=== PATIENT | male | born 1945 | race Caucasian/White ===

== ENCOUNTER → 2017-11-13 02:46 | Outpatient (CLI) | payer MEDICARE, MEDICAID, SELFPAY ==
[2017-11-13 11:45] LABS: Hemoglobin A1C 8.3 % (4.5-6.2)
== END ==
PROVIDERS: PCP Family Medicine; Visit Provider Family Medicine
DX: E11.40 Type 2 diabetes mellitus with diabetic neuropathy, unspecified (principal)
CPT/HCPCS: 36415; 83036

== ENCOUNTER 2017-12-20 00:39 | Outpatient (CLI) | payer MEDICARE, MEDICAID, SELFPAY ==
--- NOTE | 2017-12-20 08:45 | MERGEMPI_ITS ---
*[facility]* *[facility]* [address] [place] [address] Myocardial Perfusion Imaging - SPECT Regadenoson Date of study: 12/20/2017 *PATIENT PRESENTATION* Height: 180.3cm (71in) Blood Pressure: Weight: 111.4kg (245lb) BSA: 2.4m^2 Referring physician: Kenrick Gonzalez Ordering physician: Diana Murdock Impressions: - Normal perfusion by Tc99m Sestamibi Imaging. - Abnormal contraction consistent with cardiomyopathy. Summary: 1. Myocardial perfusion imaging: No myocardial perfusion defects noted. 2. The calculated left ventricular ejection fraction after stress: 43%. LV global systolic function is mild to moderately reduced. Diffuse left ventricular regional motion abnormalities. Indication: R06.02. History: REASON FOR VISIT: PT WITH DIABETES, HYPERTENTION, DYSLIPEDEMIA AND OBESITY IS HERE BECAUSE OF NEW ONSET OF SHORTNESS OF BREATH HE HAS BEEN EXPERIENCING FOR PAST FEW MONTHS. PT REPORTS THIS SHORTNESS OF BREATH HAS COME ON RATHER SUDDENLY HE DENIES ANY HISTORY OF SIGNIFICANT CHEST PAIN OR CHEST PRESSURE SYMPTOMS. PT HAD A POSITIVE PHARMACOLOGICAL STRESS TEST IN 02/15/17 HE HAD [place] [facility] [place]. Risk factors: FORMER SMOKER. QUIT 30 YEARS AGO. Family history of coronary artery disease. Hypertension. Diabetes mellitus. Obesity. Dyslipidemia. Cholesterol: 181mg/dl. HDL: 44mg/dl. LDL: 103mg/dl. Triglycerides: 172mg/dl. ALLERGIES: VIKY INHIBITORS. LORAZEPAM. METFORMIN. MEDICATIONS: SENNOSIDES 2 TABS PRN. PREGABALIN 100 MG TID. POLYETHYLENE GLYCOL 1000 BID PRN. OXYCOTIN 30 MG TID. OXYCODONE 15-30 MG BID PRN. OMEPRAZOLE 20 MG DAILY. NORTRIPYLINE 1 CAP Q HS. MULTIVITAMIN 1 DAILY. LOSARTAN 1 TAB Q AM. INSULIN LISPRO DIRECTED. INSULIN GLARGINE 45 UNITS SQ BID. FUROSEMIDE 2O MG DAILY. DULOXETINE 1 CAP DAILY. CHLORTHALIDONE 25 MG DAILY. ATORVASTATIN 80 MG DAILY. ASPIRIN 81 MG DAILY. AMLODIPINE 1 TAB DAILY. METOPROLOL SUCCINATE 50 MG DAILY. Imaging Technique: Protocol: Regadenoson. Acquisition: Gated SPECT; 1 day - rest/stress. The patient was imaged in the supine position. Attenuation correction used. Isotope administration: - Rest. Tc[99m]-sestamibi. Dose: 12.5mCi. Injection time: 09:00 AM. Injection to stress time: 00:45. - Stress. Tc[99m]-sestamibi. Dose: 36.5mCi. Injection time: 10:45 AM. 1-2 min before end of exercise Baseline ECG: SINUS RHYTHM. HR 62 BPM. Normal sinus rhythm. Stress protocol: +--------+--+ + + !Stage !HR!BP (mmHg) !Comments ! +--------+--+ + + !Baseline!62!110/52 (71)! ! +--------+--+ + + !1 min !69!120/52 (75)!Inject Regadenoson.! +--------+--+ + + !3 min !70!106/58 (74)! ! +--------+--+ + + !6 min !70!100/50 (67)! ! +--------+--+ + + !8 min !70!102/60 (74)! ! +--------+--+ + + * Stress results: The rate-pressure product for the peak heart rate and blood pressure was 8280mm Hg/min. Stress ECG: STRESS TEST ENDED IN 7 MINUTES AND 57 SECONDS. PATIENT TOLERATED LEXISCAN INJECTION WITHOUT SYMPTOMS. NORMAL HEART RATE AND BLOOD PRESSURE RESPONSE TO LEXISCAN INJECTION. NO ECTOPY. NO ANGINA. NO ST SEGMENT CHANGES. Myocardial perfusion: Imaging information: gated. The image quality was good. Left ventricular size is normal. No myocardial perfusion defects noted. Ventricular Function (Wall Motion): The calculated left ventricular ejection fraction after stress: 43%. LV global systolic function is mild to moderately reduced. Diffuse left ventricular regional motion abnormalities. Study data: Kenrick Gonzalez MD supervised and was readily available during the procedure. This study was interpreted by [facility]. Study status: Routine. Consent: The risks, benefits, and alternatives to the procedure were explained to the patient and informed consent was obtained. Procedure: Initial setup. A baseline ECG was recorded. Surface ECG leads and manual cuff blood pressure measurements were monitored. Heart sounds: Normal. Lung sounds: Normal. Regadenoson stress test. Stress testing was performed, with regadenoson by intravenous bolus, for a total dose of 0.4mgover 10.00sec, followed by a 5ml saline flush. The infusion was terminated due to per protocol. Study completion: All catheters inserted during the procedure were removed. The patient tolerated the procedure well and was discharged from the lab. Discharge: The patient left the laboratory in stable condition. Birthdate: Patient birthdate: 1945. Sex: Gender: male. Study date: Study date: 12/20/2017. Study time: 12:30 PM. Signature Documentation: - The imaging portion of this study was interpreted by Nuclear Folder And Notcher Kenrick Gonzalez MD. - The imaging portion of this study was interpreted by Nuclear Radiologist Tristian Meyer MD. - The Stress ECG portion of this study was interpreted by Kenrick Gonzalez MD. Electronically signed by Kenrick Gonzalez 12/20/2017 13:26
[2017-12-20] MEDS: Regadenoson 0.4 MG/5 ML SYR IVP (09:04)
== END 2017-12-20 00:59 ==
PROVIDERS: PCP Family Medicine; Visit Provider Family Medicine
DX: R06.02 Shortness of breath (principal); I42.9 Cardiomyopathy, unspecified; E11.9 Type 2 diabetes mellitus without complications; Z79.4 Long term (current) use of insulin; I10 Essential (primary) hypertension; E78.5 Hyperlipidemia, unspecified; Z82.49 Family history of ischemic heart disease and other diseases of the circulatory system
CPT/HCPCS: 78452; 93016; 93018; 93017; J2785

== ENCOUNTER 2017-12-26 00:40 | Outpatient (CLI) | payer MEDICARE, MEDICAID, SELFPAY ==
--- NOTE | 2017-12-26 10:35 | MERGE_ITS ---
*[facility]* *[facility]* [address] [place] [address] Date of study: 12/26/2017 Transthoracic Echocardiography M-mode, complete 2D, complete spectral Doppler, and color Doppler *STUDY CONCLUSIONS* Summary: 1. Left ventricle: The cavity size was moderately dilated. Wall thickness was normal. Systolic function was normal. The estimated ejection fraction was 45-50%. Wall motion was normal; there were no regional wall motion abnormalities. 2. Right ventricle: The cavity size was dilated. Wall thickness was normal. Systolic function was normal. *PATIENT PRESENTATION* Height: 180.3cm ((71in) ) S/D Pressure: 130 / 68 Weight: 111.1kg ((244.5lb) ) BSA: 2.4m^2 Test start time: 10:45 AM. Test stop time: 11:45 AM. ORDERING Diana Murdock REFERRING Diana Murdock PERFORMING Unknown PERFORMING [facility] TOOTH CUTTER RT Brenda (Stanislav)(CONSUELO), HERIBERTO *PROCEDURE DATA* Procedure information: The patient was identified by two identifiers. This study was interpreted by [facility]. Pertinent images and digital data are archived for permanent storage and are available for subsequent review. Comparison was made to the study of 02/21/2017. Study status: Routine. Transthoracic echocardiography. M-mode, complete 2D, complete spectral Doppler, and color Doppler. A Transthoracic Echocardiogram was performed. Scanning was performed from the parasternal, apical, subcostal, and suprasternal notch acoustic windows. Images were obtained using an [id number] cardiac ultrasound machine. Image quality was adequate. Study completion: The patient tolerated the procedure well. There were no complications. History: PMH: SOB h/o heart disease, HTN, SANTORO, DM with neuropathy. *CARDIAC ANATOMY* Left ventricle: The cavity size was moderately dilated. Wall thickness was normal. Systolic function was normal. The estimated ejection fraction was 45-50%. Wall motion was normal; there were no regional wall motion abnormalities. Aortic valve: Trileaflet; normal thickness leaflets. Mobility was not restricted. Doppler: Transvalvular velocity was within the normal range. There was no stenosis. There was no significant regurgitation. VTI ratio of LVOT to aortic valve: 0.68. Valve area (VTI): 2.4cm^2. Indexed valve area (VTI): 1cm^2/m^2. Peak velocity ratio of LVOT to aortic valve: 0.61. Valve area (Vmax): 2.1cm^2. Indexed valve area (Vmax): 0.9cm^2/m^2. Mean velocity ratio of LVOT to aortic valve: 0.59. Valve area (Vmean): 2.1cm^2. Indexed valve area (Vmean): 0.9cm^2/m^2. Mean gradient (S): 4.8mm Hg. Peak gradient (S): 8mm Hg. Aorta: Aortic root: The aortic root was normal in size. Mitral valve: Structurally normal valve. Mobility was not restricted. Doppler: Transvalvular velocity was within the normal range. There was no evidence for stenosis. There was trivial regurgitation. Valve area by pressure half-time: 4.2cm^2. Indexed valve area by pressure half-time: 1.7cm^2/m^2. Left atrium: The atrium was normal in size. Right ventricle: The cavity size was dilated. Wall thickness was normal. Systolic function was normal. Pulmonic valve: Structurally normal valve. Doppler: Transvalvular velocity was within the normal range. There was no evidence for stenosis. There was mild regurgitation. Peak gradient (S): 2.5mm Hg. Tricuspid valve: Structurally normal valve. Doppler: Transvalvular velocity was within the normal range. There was no evidence for stenosis. There was mild regurgitation. Pulmonary artery: Pulmonary systolic pressure was within the normal range, in the range of 35mm Hg to 40mm Hg. Right atrium: The atrium was normal in size. Pericardium: There was no pericardial effusion. Systemic veins: Inferior vena cava: Well visualized. The vessel was normal in size. The respirophasic diameter changes were in the normal range (greater than or equal to 50%). Baseline ECG: Normal sinus rhythm. Measurements Left ventricle Value 02/21/2017 Reference LV ID, ED, PLAX (H) 6.9 cm 6.3 3.5 - 6.0 LV ID, ES, PLAX (H) 5.3 cm 4.4 2.1 - 4.0 LV PW thickness, ED, PLAX 1.0 cm LV end-diastolic volume, 113 ml 98 1-p A2C LV ejection fraction, 1-p 54 % 47 A2C LV end-diastolic volume, 125 ml 104 1-p A4C LV ejection fraction, 1-p 46 % 48 A4C LV e', lateral 0.094 m/sec LV E/e', lateral 7 LV e', medial 0.073 m/sec LV E/e', medial 9 LV e', average 0.083 m/sec LV E/e', average 8 Ventricular septum Value 02/21/2017 Reference IVS thickness, ED, PLAX 0.8 cm 1.1 LVOT Value 02/21/2017 Reference LVOT ID, A-P 2.1 cm 2.1 LVOT area 3.5 cm^2 3.3 LVOT peak velocity, S 0.87 m/sec 0.89 LVOT mean velocity, S 0.63 m/sec LVOT VTI, S 22.6 cm 19.6 LVOT peak gradient, S 3 mm Hg LVOT mean gradient, S 1.8 mm Hg 1.5 Stroke volume (SV), LVOT 78 ml DP Stroke index (SV/bsa), 33 ml/m^2 LVOT DP Aortic valve Value 02/21/2017 Reference Aortic valve peak 1.4 m/sec 1.1 velocity, S Aortic valve mean 1.06 m/sec 0.01 velocity, S Aortic valve VTI, S 33.1 cm Aortic mean gradient, S 4.8 mm Hg 2.5 Aortic peak gradient, S 8 mm Hg 4 VTI ratio, LVOT/AV 0.68 0.84 Aortic valve area, VTI 2.4 cm^2 2.8 Velocity ratio, peak, 0.61 0.81 LVOT/AV Aortic valve area, peak 2.1 cm^2 2.7 velocity Velocity ratio, mean, 0.59 LVOT/AV Aortic valve area, mean 2.1 cm^2 velocity Aortic valve area/bsa, 0.9 cm^2/m^2 mean velocity Aorta Value 02/21/2017 Reference Aortic root ID, ED 3.5 cm 3.4 Ascending aorta ID, A-P, S 3.6 cm 3.2 RVOT Value 02/21/2017 Reference RVOT VTI, S 15.6 cm 15.8 Left atrium Value 02/21/2017 Reference LA ID, A-P, ES 3.8 cm LA ID/bsa, A-P 1.6 cm/m^2 <=2.2 LA area, ES, A4C 21.9 cm^2 18.5 8.8 - 23.4 LA area, ES, A2C 19 cm^2 LA volume/bsa, ES, 1-p A4C 30 ml/m^2 21 LA volume, ES, 2-p 62 ml LA volume/bsa, ES, 2-p 26 ml/m^2 LA/aortic root ratio 1.09 1.27 Mitral valve Value 02/21/2017 Reference Mitral E-wave peak 0.69 m/sec 0.62 velocity Mitral A-wave peak 0.81 m/sec 0.69 velocity Mitral deceleration time 181 ms 199 150 - 230 Mitral pressure half-time 52 ms 58 Mitral E/A ratio, peak 0.85 0.89 Mitral valve area, PHT, DP 4.2 cm^2 3.8 Tricuspid valve Value 02/21/2017 Reference Tricuspid regurg peak 3.6 m/sec 2.9 velocity Tricuspid peak RV-RA 50.6 mm Hg 34.7 gradient Right atrium Value 02/21/2017 Reference RA area, ES, A4C 19.5 cm^2 16.7 8.3 - 19.5 Pulmonic valve Value 02/21/2017 Reference Pulmonic peak gradient, S 2.5 mm Hg 6 Legend: (L) and (H) patricia values outside specified reference range. I have personally reviewed the images and have reviewed and edited the reported findings. Electronically signed by Kenrick Gonzalez 12/26/2017 13:49
== END 2017-12-26 01:00 ==
PROVIDERS: PCP Family Medicine; Visit Provider Family Medicine
DX: R06.02 Shortness of breath (principal); I20.9 Angina pectoris, unspecified; I10 Essential (primary) hypertension; I42.9 Cardiomyopathy, unspecified; R06.09 Other forms of dyspnea; E11.40 Type 2 diabetes mellitus with diabetic neuropathy, unspecified; Z79.4 Long term (current) use of insulin
CPT/HCPCS: 93306

== ENCOUNTER 2018-02-19 12:41 | Outpatient (CLI) | payer MEDICARE, MEDICAID, SELFPAY ==
[2018-02-19 13:38] LABS: HGB 13.6 g/dL (13.5-17.5); Mean Corp. HGB Concentration 32.4 g/dL (32.0-36.0); Mean Corpuscular Hemoglobin 29.2 pg (27.0-33.0); Mean Corpuscular Volume 90.3 fL (80-95); Mean Platelet Volume 11.8 fL (8.0-11.0); Platelet Count 121 x1000/uL (130-400); RBC 4.65 m/cumm (4.50-6.00); RBC Distribution Width 13.4 % (11.8-14.1); White Blood Cell Count 5.63 k/cumm (4.4-10.8)
[2018-02-19 14:03] LABS: Hemoglobin A1C 7.9 % (4.5-6.2)
[2018-02-19 16:23] LABS: ALT 20 U/L (12-78); AST 14 U/L (15-37); Alkaline Phosphatase 78 U/L (46-116); Anion Gap 9.3 mmol/L (3-11); BUN 23 mg/dL (7-18); Bilirubin, Total 0.5 mg/dL (0.2-1.0); CO2 29.7 mmol/L (21.0-32.0); CREATININE 1.18 mg/dL (0.70-1.30); Chloride 101 mmol/L (98-107); Glucose 134 mg/dL (70-100); NT-proBNP 51 pg/mL; Potassium 3.6 mmol/L (3.5-5.1); Sodium 140 mmol/L (136-145); Total Protein 7.1 g/dL (6.4-8.2)
[2018-02-19 16:41] LABS: Cholesterol 145 mg/dL (50-200); HDL Cholesterol 32 mg/dL (40-60); LDL CHOLESTEROL 83 mg/dL (<100); Triglyceride 174 mg/dL (30-150)
[2018-02-20 10:10] LABS: Hepatitis C Ab w Rflx HCV PCR Negative (NEGAT)
== END 2018-02-19 13:01 ==
PROVIDERS: PCP Family Medicine; Visit Provider Family Medicine
DX: E78.5 Hyperlipidemia, unspecified (principal); I10 Essential (primary) hypertension; E11.40 Type 2 diabetes mellitus with diabetic neuropathy, unspecified; D64.9 Anemia, unspecified; D69.6 Thrombocytopenia, unspecified; R06.02 Shortness of breath; I50.9 Heart failure, unspecified; Z11.59 Encounter for screening for other viral diseases
CPT/HCPCS: 36415; 80053; 80061; 83721; 85027; 86803; 83036; 83880

== ENCOUNTER 2018-08-06 10:21 | Outpatient (CLI) | payer MEDICARE, MEDICAID, SELFPAY ==
[2018-08-06 14:31] LABS: Hemoglobin A1C 7.5 % (4.5-6.2)
== END 2018-08-06 10:41 ==
PROVIDERS: PCP Family Medicine; Visit Provider Family Medicine
DX: E11.9 Type 2 diabetes mellitus without complications (principal)
CPT/HCPCS: 36415; 83036

== ENCOUNTER 2018-09-21 23:55 | Inpatient (IN) | payer MEDICARE, MEDICAID, SELFPAY ==
[2018-09-22] VITALS (99 sets, daily range): BP systolic 75–154; BP diastolic 37–132; PULSE 77–127; RESP 4–41; TEMP 36.3–38.8; O2SAT 89–97
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
[2018-09-22] MEDS: Albuterol/Ipratropium 3 ML UPD VIAL UPD ×2 (00:13→23:04)
[2018-09-22] MEDS: Lactated Ringers 1,000 ML 200 ML IV ×2 (00:23→05:35)
[2018-09-22 00:26] LABS: Lactate-non-spesis 0.8 mmol/l (0.6-1.4)
[2018-09-22 00:30] LABS: Abs Immature Grans 0.01 k/cumm (0.0-0.09); Absolute Eosinophil Count 0.02 k/cumm (0.0-0.7); Absolute Lymphocyte Count 0.38 k/cumm (1.2-3.4); Absolute Monocyte Count 0.43 k/cumm (0.11-0.7); Absolute Neutrophil Count 4.77 k/cumm (1.2-6.7); Eosinophils % 0.4; HCT 33.5 % (40.0-50.0); HGB 10.8 g/dL (13.5-17.5); Immature Grans % 0.2; Lymphocytes % 6.8; Mean Corp. HGB Concentration 32.2 g/dL (32.0-36.0); Mean Corpuscular Volume 90.1 fL (80-95); Mean Platelet Volume 12.2 fL (8.0-11.0); Monocytes % 7.7; Neutrophils % 84.9; Platelet Count 102 x1000/uL (130-400); RBC 3.72 m/cumm (4.50-6.00); RBC Distribution Width 13.6 % (11.8-14.1); White Blood Cell Count 5.61 k/cumm (4.4-10.8)
[2018-09-22] MEDS: Acetaminophen 500 MG TAB 1000 MG PO (00:32)
[2018-09-22 01:07] LABS: ALT 18 U/L (12-78); AST 19 U/L (15-37); Albumin 3.3 g/dL (3.4-5.0); Alkaline Phosphatase 65 U/L (46-116); Anion Gap 13.1 mmol/L (3-11); BUN 65 mg/dL (7-18); Bilirubin, Total 0.5 mg/dL (0.2-1.0); CO2 24.9 mmol/L (21.0-32.0); CREATININE 3.49 mg/dL (0.70-1.30); Calcium 7.5 mg/dL (8.5-10.1); Chloride 100 mmol/L (98-107); Estimated GFR 17.36 (mL/min/1.73m2); Glucose 57 mg/dL (70-100); Magnesium 1.6 mg/dL (1.8-2.4); Potassium 3.6 mmol/L (3.5-5.1); Sodium 138 mmol/L (136-145); Total Protein 6.3 g/dL (6.4-8.2)
[2018-09-22 01:13] LABS: Bilirubin Negative (Negative); Blood Negative (Negative); Clarity Clear; Glucose 500 mg/dL (Negative); Ketones Negative (Negative); Leukocyte Esterase Trace (Negative); Nitrite Negative (Negative); Urobilinogen 0.2 EU/dL (Up TO 0.2); pH 5.5 (5-8)
[2018-09-22 01:14] LABS: Troponin I < 0.02 ng/mL (0.00-0.06)
[2018-09-22 01:20] LABS: Bacteria Many HPF (Negative); C & S Indicated? Yes; Casts Negative LPF (Negative); Crystals Negative HPF (Negative); Epithelial Cells Rare HPF (Negative); Mucus Negative (Negative); RBC 0-2 (0-2)
[2018-09-22] MEDS: Dextrose 50%-Water 25 GM/50 ML SYR IVP (01:22)
--- NOTE | 2018-09-22 01:50 | DI.CT_ITS ---
SYMPTOM/DIAGNOSIS: ALTERED MENTAL STATUS CT HEAD: No intracranial hemorrhage, mass or acute infarct seen. There is no evidence of skull fracture. There are white matter changes consistent with small vessel disease. The ventricles are normal in size. There is a normal variant of a jose enrique cisterna magna. IMPRESSION: No acute abnormality.
--- NOTE | 2018-09-22 01:50 | DI.CT_ITS ---
SYMPTOM/DIAGNOSIS: FEVER, LOW SATS, DISTENDED ABDOMEN CT CHEST, ABDOMEN AND PELVIS: The exam was performed without IV contrast. There is no evidence of fracture, pneumothorax, mass or adenopathy. There are dependent changes at the posterior lung bases as well as respiratory motion. No pleural or pericardial effusions are seen. The heart is mildly enlarged. Coronary artery calcifications and mild aortic calcifications are seen. IMPRESSION: No acute abnormality. CT ABDOMEN AND PELVIS: The exam was performed without IV or oral contrast. The exam is limited by respiratory motion. The stomach is moderately distended with fluid. The colon also shows fluid at the level of the cecum and ascending colon. Stool is seen in the remainder of the colon. There is some stranding seen around the cecum and ascending colon. The appendix appears normal. There is no free air or free fluid. No small bowel dilatation is seen. Webb catheter is noted in the urinary bladder. The liver, spleen, kidneys and adrenals are unremarkable. The pancreas is atrophic. The gallbladder is somewhat distended however there is no evidence of wall thickening. No stones are visible. No biliary dilatation. Degenerative changes are seen in the spine. Degenerative changes are also present in the hips, right greater than left. IMPRESSION: Inflammatory changes around the cecum.
[2018-09-22] MEDS: Lactated Ringers 500 ML IV (01:59)
--- NOTE | 2018-09-22 02:25 | DI.VRAD_ITS ---
EXAM: CT Head Without Contrast EXAM DATE/TIME: 09/22/2018 12:12 AM CLINICAL HISTORY: 73 years old, male; Signs and symptoms; Alteration of consciousness and altered mental status/memory loss; Other: Not specified; Confusion or disorientation TECHNIQUE: Imaging protocol: Axial computed tomography images of the head without contrast. Coronal and sagittal reformatted images were created and reviewed. Radiation optimization: All CT scans at this facility use at least one of these dose optimization techniques: automated exposure control; mA and/or kV adjustment per patient size (includes targeted exams where dose is matched to clinical indication); or iterative reconstruction. COMPARISON: No relevant prior studies available. FINDINGS: Brain: There is a jose enrique-cisterna magna, a normal variant. There is mild diffuse heterogeneity of the white matter attenuation, consistent with chronic white matter microangiopathic ischemic changes. There is mild diffuse cerebral atrophy present. There is no evidence of intracranial hemorrhage. There is no evidence of acute intracranial injury or other pathologic process. There is no evidence of an acute ischemic event. Ventricles: The ventricular system demonstrates mild diffuse compensatory enlargement. Bones/joints: The orbits are normal without evidence of fracture. The bony cranium shows no evidence of injury or other acute pathologic processes. Sinuses: Mucoperiosteal thickening consistent with chronic sinusitis. No air-fluid levels to suggest evidence of acute sinusitis. Mastoid air cells: The mastoid aircells are normal. Orbits: There is no evidence of retro-bulbar hemorrhage. There is no evidence of globe or lens injury. Soft tissues: The extracranial soft tissues are normal. IMPRESSION: No evidence of an acute intracranial abnormality. Dictated and Authenticated by: Tk Roberson MD. Ordering:ITZEL Lubin MD
--- NOTE | 2018-09-22 02:59 | DI.VRAD_ITS ---
EXAM: CT Chest Without Contrast EXAM DATE/TIME: 09/22/2018 1:17 AM CLINICAL HISTORY: 73 years old, male; Signs and symptoms; Bloating and fever and other: Low sats; Other: Not specified; Additional info: Non-contrast study due to insufficient labs TECHNIQUE: Imaging protocol: Axial computed tomography images of the chest without intravenous contrast. Coronal and sagittal reformatted images were created and reviewed. Radiation optimization: All CT scans at this facility use at least one of these dose optimization techniques: automated exposure control; mA and/or kV adjustment per patient size (includes targeted exams where dose is matched to clinical indication); or iterative reconstruction. COMPARISON: No relevant prior studies available. FINDINGS: Lungs: Bilateral lower lobe atelectatic changes present early pneumonia cannot be excluded. Pleural space: Unremarkable. No pneumothorax. No pleural effusion. Heart: There is moderate to severe atherosclerotic calcification of the coronary arteries. There is mild cardiomegaly. Pulmonary arteries: The pulmonary arteries are not enlarged. Aorta: The aorta demonstrates mild atherosclerotic calcification. Lymph nodes: There is no evidence of lymphadenopathy. Bones/joints: The skeletal structures and soft tissues show no evidence of fracture or other acute processes. The thoracic spine demonstrates moderate degenerative changes at multiple levels. Soft tissues: The soft tissues of the extrathoracic region are unremarkable. Upper abdomen: Please see CT of the abdomen and pelvis. IMPRESSION: Bilateral lower lobe atelectatic changes present early pneumonia cannot be excluded. EXAM: CT Abdomen and Pelvis Without Contrast EXAM DATE/TIME: 09/22/2018 1:17 AM CLINICAL HISTORY: 73 years old, male; Signs and symptoms; Bloating and fever and other: Low sats; Other: Not specified; Additional info: Non-contrast study due to insufficient labs TECHNIQUE: Imaging protocol: Axial computed tomography images of the abdomen and pelvis without contrast. Coronal and sagittal reformatted images were created and reviewed. Radiation optimization: All CT scans at this facility use at least one of these dose optimization techniques: automated exposure control; mA and/or kV adjustment per patient size (includes targeted exams where dose is matched to clinical indication); or iterative reconstruction. COMPARISON: No relevant prior studies available. FINDINGS: ABDOMEN: Liver: There are no focal liver lesions present. Gallbladder and bile ducts: The gallbladder is hydropic measuring 10 x 5.5 cm. The gallbladder is otherwise normal. There is no cholelitiasis, wall thickening or pericholecystic fluid to suggest cholecystitis. Pancreas: There is moderate to severe diffuse pancreatic atrophy. Spleen: The spleen is normal. Adrenals: The adrenal glands are normal. Kidneys and ureters: There is bilateral perinephric stranding. This may represent a mild inflammatory process or old inflammation and scarring. The kidneys are normal. Stomach and bowel: The stomach is distended with fluid and gas. There is a small hiatal hernia. The colon is distended with gas and fluid. There may be 2 separate areas of stricture at the proximal and distal transverse colon. While these may represent benign strictures, the possibility of malignancy cannot be excluded. No evidence of small bowel obstruction. There is moderate constipation. Soft tissue stranding seen within the right hemiabdomen adjacent to the colon. Inflammatory process colitis cannot be excluded. Appendix: A normal appendix is identified. There is no evidence of distention or periappendiceal inflammation to suggest appendicitis. PELVIS: Bladder: The bladder is decompressed by a Webb catheter but is otherwise normal. There is a small amount of urinary bladder intraluminal air consistent with instrumentation. Reproductive: The prostate gland demonstrates calcification and moderate nonspecific enlargement. The seminal vesicles are normal. ABDOMEN and PELVIS: Intraperitoneal space: Normal. No free air. No significant fluid collection. Bones/joints: The lumbar spine demonstrates moderate to severe degenerative changes. Soft tissues: There are bilateral inguinal hernias containing fat and mesentery. The extra-abdominal soft tissues are normal. Vasculature: Normal. No abdominal aortic aneurysm. Lymph nodes: Normal. No enlarged lymph nodes. Other findings: Motion artifact does moderately limit the sensitivity of this examination. IMPRESSION: 1. The colon is distended with gas and fluid. There may be 2 separate areas of stricture at the proximal and distal transverse colon. While these may represent benign strictures, the possibility of malignancy cannot be excluded. No evidence of small bowel obstruction. 2. Soft tissue stranding seen within the right hemiabdomen adjacent to the colon. Inflammatory process colitis cannot be excluded. 3. There is moderate constipation. Dictated and Authenticated by: Tk Roberson MD. Ordering:ITZEL Lubin MD
[2018-09-22] MEDS: cefTRIAXone 2 GM/50 ML BAG IVPB (03:07)
--- NOTE | 2018-09-22 03:11 | NUR.NOTE ---
Nursing Note: Dr. Becker notified pt's BP 85/42, no new orders received at this time.
--- NOTE | 2018-09-22 03:25 | NUR.NOTE ---
Nursing Note: Dr. Feldman at bedside to evaluate pt.
--- NOTE | 2018-09-22 03:49 | HPE_ITS ---
Date of service: 09/22/18 Time of Service: 03:36 Assessment and Plan (1) UTI (urinary tract infection): Current visit: Yes Status: Acute UTI in setting of presumed chronic urinary retention; BP soft representing dehydration versus early sepsis. Will continue volume resuscitation and antibiotics, pending culture results. Will continue usual meds as is with exception of diuretics (hypotension) and insulin (hypoglycemia). Reviewed advance directives and patient and indicate wish for full code status. History of Present Illness Chief Complaint: confusion Narrative: 73 male here with one day of confusion and weakness; EMS summoned and reportedly noted fever. IN ER findings of note for temp 38.1, BP varying between 80s and 114/systolic; urinary retention (2liter), pyuria and YAZAN (Cr 3.5). Cultures obtained, patient given 2 l IVF and one gram Rocephin. Admitted for further management. Patient does admit that lower abdomen has been somewhat uncomfortable but unable to get much in way of detail. indicates that this has not been an ongoing issue. 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 Meds Home Medications Medication Instructions Recorded Confirmed Type aspirin [Aspirin Low-Strength] 1 tab PO DAILY tab.chew 07/13/12 09/22/18 History multivitamin 1 tab PO DAILY 07/13/12 09/22/18 History Narcotic Contract 01/23/13 08/06/18 History blood sugar diagnostic [Blood #400 strip 08/03/17 08/06/18 Rx Glucose Test Strip] pen needle, diabetic 31 gauge x #360 ndl 12/22/17 08/06/18 Rx 1/3 blood sugar diagnostic strips #400 each 01/19/18 08/06/18 Rx blood-glucose meter #1 each 01/19/18 08/06/18 Rx lancets 25 gauge #100 each 01/19/18 08/06/18 Rx atorvastatin 80 mg tablet 80 mg PO DAILY #90 tab-cap 02/22/18 09/22/18 Rx blood-glucose meter,continuous #1 each 02/22/18 08/06/18 Rx blood-glucose sensor device #3 each 02/22/18 08/06/18 Rx blood-glucose transmitter device #1 each 02/22/18 08/06/18 Rx pregabalin 100 mg capsule 100 mg PO TID #270 tab-cap 03/18/18 09/22/18 Rx losartan 100 mg tablet 100 mg PO QAM #90 tab-cap 03/23/18 09/22/18 Rx nitroglycerin 0.4 mg sublingual 0.4 mg SL ONCE #25 tab 03/23/18 08/06/18 Rx tablet polyethylene glycol 3350 17 gram 17 gm PO DAILY PRN #90 each 07/10/18 09/22/18 Rx oral powder packet amlodipine 10 mg tablet 10 mg PO QAM #90 tab 07/16/18 09/22/18 Rx chlorthalidone 25 mg tablet 25 mg PO DAILY #90 tab-cap 07/16/18 09/22/18 Rx duloxetine 60 mg capsule,delayed 60 mg PO DAILY #90 tab-cap 07/16/18 09/22/18 Rx release furosemide 20 mg tablet 20 mg PO DAILY #90 tab-cap 07/16/18 09/22/18 Rx metoprolol succinate ER 50 mg 50 mg PO DAILY #90 tab 07/16/18 09/22/18 Rx tablet,extended release 24 hr nortriptyline 50 mg capsule 50 mg PO HS #90 tab 07/16/18 09/22/18 Rx omeprazole 20 mg capsule,delayed 20 mg PO DAILY #90 tab-cap 07/16/18 09/22/18 Rx release sennosides 8.6 mg tablet 17.2 mg PO QPM PRN #180 tab 07/16/18 09/22/18 Rx empagliflozin 25 mg tablet 25 mg PO QAM #30 tab 08/06/18 09/22/18 Rx insulin glargine (U-100) 100 60 unit SUBCUT BID ml 08/06/18 09/22/18 History unit/mL (3 mL) subcutaneous pen oxycodone 15 mg tablet 15 mg PO TID PRN #70 tab MDD 3 08/06/18 09/22/18 Rx oxycodone ER 30 mg tablet,crush 30 mg PO TID #70 tab MDD 3 08/06/18 09/22/18 Rx resistant,extended release 12 hr tamsulosin 0.4 mg capsule 0.4 mg PO DAILY #30 cap 08/06/18 09/22/18 Rx insulin lispro (U- 100) 100 See Rx Instructions SUBCUT AC #150 08/24/18 09/22/18 Rx unit/mL subcutaneous pen ml Allergies Allergy/AdvReac Type Severity Reaction Status Date / Time VIKY Inhibitors AdvReac Cough Unverified 08/06/18 15:30 lorazepam AdvReac Diarrhea Unverified 08/06/18 15:30 metformin AdvReac Diarrhea Unverified 08/06/18 15:30 Exam Narrative Exam Narrative: 96/43, 81, 27,, 38.1. HEENT atraumatic; neck supple; lungs diminisshed but clear; heart RRR without murmur; abdomen soft, NT; : bilateral hydrocoele (demonstrated by transillumination); rectal deferred; neuro somewhat confused but able to have brief exchanges Results Labs : 09/22/18 00:18 09/22/18 00:18 Laboratory Results - last 24 hr 09/22/18 09/22/18 09/22/18 00:18 00:18 00:18 WBC 5.61 RBC 3.72 L Hgb 10.8 L Hct 33.5 L MCV 90.1 MCH 29.0 MCHC 32.2 RDW 13.6 Plt Count 102 L MPV 12.2 H Immature Gran % 0.2 Neutrophils % 84.9 Lymphocytes % 6.8 Monocytes % 7.7 Eosinophils % 0.4 Basophils % 0.0 Absolute Neutrophils 4.77 Absolute Lymphocytes 0.38 L Absolute Monocytes 0.43 Absolute Eosinophils 0.02 Absolute Basophils 0.00 Sodium 138 Potassium 3.6 Chloride 100 Carbon Dioxide 24.9 Anion Gap 13.1 H BUN 65 H Creatinine 3.49 H Estimated GFR/1.73 m2 17.36 Glucose 57 L Lactate 0.8 Calcium 7.5 L Magnesium 1.6 L Total Bilirubin 0.5 AST 19 ALT 18 Alkaline Phosphatase 65 Troponin I < 0.02 Total Protein 6.3 L Albumin 3.3 L Urine Color Urine Clarity Urine pH Ur Specific [place] Urine Protein Urine Ketones Urine Blood Urine Nitrite Urine Bilirubin Urine Urobilinogen Ur Leukocyte Esterase Urine RBC Urine WBC Ur Epithelial Cells Urine Crystals Urine Bacteria Urine Casts Urine Mucus Ur Culture Indicated? Urine Glucose 09/22/18 00:50 WBC RBC Hgb Hct MCV MCH MCHC RDW Plt Count MPV Immature Gran % Neutrophils % Lymphocytes % Monocytes % Eosinophils % Basophils % Absolute Neutrophils Absolute Lymphocytes Absolute Monocytes Absolute Eosinophils Absolute Basophils Sodium Potassium Chloride Carbon Dioxide Anion Gap BUN Creatinine Estimated GFR/1.73 m2 Glucose Lactate Calcium Magnesium Total Bilirubin AST ALT Alkaline Phosphatase Troponin I Total Protein Albumin Urine Color Yellow Urine Clarity Clear Urine pH 5.5 Ur Specific [place] 1.010 Urine Protein Negative Urine Ketones Negative Urine Blood Negative Urine Nitrite Negative Urine Bilirubin Negative Urine Urobilinogen 0.2 Ur Leukocyte Esterase Trace H Urine RBC 0-2 Urine WBC 5-10 Ur Epithelial Cells Rare Urine Crystals Negative Urine Bacteria Many Urine Casts Negative Urine Mucus Negative Ur Culture Indicated? Yes Urine Glucose 500 H Last Vital Signs Temp 37.3 C 09/22/18 03:11 Pulse 81 09/22/18 03:16 Resp 27 H 09/22/18 03:16 BP 96/43 L 09/22/18 03:16 Pulse Ox 93 L 09/22/18 03:11
[2018-09-22 06:38] LABS: Anion Gap 11.2 mmol/L (3-11); BUN 64 mg/dL (7-18); CO2 26.8 mmol/L (21.0-32.0); CREATININE 2.78 mg/dL (0.70-1.30); Chloride 100 mmol/L (98-107); Estimated GFR 22.57 (mL/min/1.73m2); Potassium 3.8 mmol/L (3.5-5.1); Sodium 138 mmol/L (136-145)
--- NOTE | 2018-09-22 07:49 | PDOC.CMIN ---
- If Service Date Differs Date of service: 09/22/18 Time of Service: 07:49 Care Management Initial Assess REASON FOR HOSPITALIZATION:: UTI PAST MEDICAL HISTORY/PAST SURGICAL HISTORY:: Medical History: Thrombocytopenia (Chronic 07/27/15). Rupture of left long head biceps tendon (Chronic 05/03/17). 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 Peripheral neuralgia (Chronic). Pain of left thumb (Chronic 07/27/15). Mass of skin of right elbow (Chronic 06/28/16). Low back pain (Chronic 12/24/12). Left groin hernia (Chronic 04/30/15). Hyperlipidemia (Chronic). Hematuria (Chronic 08/12/16). Gait abnormality (Chronic). Dysphagia (Chronic). Dizziness (Chronic). 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 Depressive disorder (Chronic). Cardiac ischemia (Chronic 02/15/17). Arthralgia of left ankle or foot (Chronic). Anxiety (Chronic 11/02/15). Anemia (Chronic 07/27/15). Surgical History : Cardiac Cath. Extraction of cataract PREVIOUS FUNCTIONAL STATUS/SOCIAL/FAMILY SUPPORTS:: Parviz was sitting up in bed when CM came to visit. He was unable to answer most questions when asked. He said that he is and lives with his in a single family home. He thinks he has 5 children but is unsure. He knows he is in the hospital but not where the hospital is. [facility] review completed. No visitors to obtain information from at this time. CURRENT FUNCTIONAL STATUS:: States he is really sick and that his abdomen hurts. ADVANCE DIRECTIVES:: [facility] - Sommer Pearson [phone] Has patient been provided with information about the portal?: No Did the patient sign up for the portal?: No CODE STATUS:: Full Code INSURANCE COVERAGE / FINANCIAL ISSUES:: Medicare. Medicaid CURRENT HOME/COMMUNITY SERVICES/EQUIPMENT:: Parviz currently has and uses a walker, cane and wheelchair, depending on the activity and duration. PRIMARY CARE PHYSICIAN:: Diana Murdock MD POTENTIAL DISCHARGE NEEDS:: followup with PCP and discharge plan of care PATIENT/FAMILY EDUCATION NEEDS:: Discharge plan, limitations, follow up plan, Ask Me Three. ANTICIPATED BARRIERS TO DISCHARGE:: none TRANSPORTATION:: via private vehicle with when ready. PLAN:: Parviz will be discharged home, likely with new home health services of RN, PT and OT.Cm to continue to support patient, family and discharge planning process.
--- NOTE | 2018-09-22 07:54 | INITIAL_ITS ---
- If Service Date Differs Date of service: 09/22/18 Time of Service: 07:49 Care Management Initial Assess REASON FOR HOSPITALIZATION:: UTI PAST MEDICAL HISTORY/PAST SURGICAL HISTORY:: Medical History: Thrombocytopenia (Chronic 07/27/15). Rupture of left long head biceps tendon (Chronic 05/03/17). 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 Peripheral neuralgia (Chronic). Pain of left thumb (Chronic 07/27/15). Mass of skin of right elbow (Chronic 7). Low back pain (Chronic 12/24/12). Left groin hernia (Chronic 04/30/15). Hyperlipidemia (Chronic). Hematuria (Chronic 08/12/16). Gait abnormality (Chronic). Dysphagia (Chronic). Dizziness (Chronic). 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 Depressive disorder (Chronic). Cardiac ischemia (Chronic 02/15/17). Arthralgia of left ankle or foot (Chronic). Anxiety (Chronic 11/02/15). Anemia (Chronic 07/27/15). Surgical History : Cardiac Cath. Extraction of cataract PREVIOUS FUNCTIONAL STATUS/SOCIAL/FAMILY SUPPORTS:: Parviz was sitting up in be d when CM came to visit. He was unable to answer most questions when asked. He said that he is and lives with his in a single family home. He thinks he has 5 children but is unsure. He knows he is in the hospital but not where the hospital is. [facility] review completed. No visitors to obtain information from at this time. CURRENT FUNCTIONAL STATUS:: States he is really sick and that his abdomen hurts. ADVANCE DIRECTIVES:: [facility] - Sommer Pearson [phone] Has patient been provided with information about the portal?: No Did the patient sign up for the portal?: No CODE STATUS:: Full Code INSURANCE COVERAGE / FINANCIAL ISSUES:: Medicare. Medicaid CURRENT HOME/COMMUNITY SERVICES/EQUIPMENT:: Parviz currently has and uses a walker, cane and wheelchair, depending on the activity and duration. PRIMARY CARE PHYSICIAN:: Diana Murdock MD POTENTIAL DISCHARGE NEEDS:: followup with PCP and discharge plan of care PATIENT/FAMILY EDUCATION NEEDS:: Discharge plan, limitations, follow up plan, Ask Me Three. ANTICIPATED BARRIERS TO DISCHARGE:: none TRANSPORTATION:: via private vehicle with when ready. PLAN:: Parviz will be discharged home, likely with new home health services of RN, PT and OT.Cm to continue to support patient, family and discharge planning process.
--- NOTE | 2018-09-22 08:32 | PGE_ITS ---
Date of Service Date of service: 09/22/18 Time of Service: 08:29 Assessment and Plan (1) Sepsis associated hypotension: Current visit: Yes Status: Acute Due to UTI, POA. Blood cultures and urine C&S are pending. On rocephin empirically. Continue to monitor in ICU as BP's are borderline low. Continue IVF. Procalcitonin is 11.6, which is concerning - will trend. Imaging with bilateral perinephric stranding - ?pyelonephritis. No stones mentioned. (2) UTI (urinary tract infection): Current visit: Yes Status: Acute As above (3) Toxic metabolic encephalopathy: Current visit: Yes Status: Acute Due to above - continue to monitor mental status while treating infection. The patient does require a lot of nursing care due to persistent agitation, requiring ICU. (4) Urinary retention: Current visit: Yes Status: Acute s/p marmolejo - as above (5) Hematuria: Current visit: Yes Status: Acute Due to patient pulling on marmolejo - monitor behaviors (6) Shortness of breath: Current visit: No Status: Chronic Given hypoxia, check ABG. CXR showing discoid atelectasis. (7) Hypoxia: Current visit: Yes Status: Acute Check ABG. CXR without evidence of PNA. (8) Diabetes mellitus with neuropathy: Current visit: No Status: Chronic BG's in 90's. (9) Colonic stricture: Current visit: Yes Status: Acute Discussed with general surgery - as the patient is clearly not obstructed, he will require an outpatient colonoscopy to ensure that there is no malignancy. (10) Discharge planning issues: Current visit: Yes Status: Acute Full code. Continues to require ICU. Critical care time spent providing care and on documentation is 35 minutes. (11) DVT prophylaxis: Current visit: Yes Status: Acute Start heparin SC, carefully monitoring plt count and hematuria Subjective Interval history since last seen: Confused, trying to get out of bed constantly and pulling on his marmolejo catheter. Now has hematuria. To nursing, he expressed that he thinks he is sitting on his porch. Patient states he does not drink. Febrile this morning. BP still borderline. On 3L of NC - not on O2 at home. Marmolejo is draining (now with hematuria). Several moderate quantity BM's (heme negative). Nursing notes testicular edema. Exam Narrative Exam Narrative: General: Middle-aged Obese male, A&Ox2, audibly wheezing, restless, trying to get out of bed HEENT: EOMI, MMM Heart: RRR, tachycardic, no m/r/g Lungs: diminished breath sounds B but no wheezing is auscultated in the lungs (upper airway only) GI: abdomen is soft, distended, nontender Extremities: trace edema BLE's, R hand with contracted fingers. Objective Objective Clinical Data: Abnormal lab results 09/22/18 09/22/18 09/22/18 Range/Units 00:18 00:18 00:50 RBC 3.72 L (4.50-6.00) m/cumm Hgb 10.8 L (13.5-17.5) g/dL Hct 33.5 L (40.0-50.0) % Plt Count 102 L (130-400) x1000/uL MPV 12.2 H (8.0-11.0) fL Absolute Lymphocytes 0.38 L (1.2-3.4) k/cumm Anion Gap 13.1 H (3-11) mmol/L BUN 65 H (7-18) mg/dL Creatinine 3.49 H (0.70-1.30) mg/dL Glucose 57 L (70-100) mg/dL Calcium 7.5 L (8.5-10.1) mg/dL Magnesium 1.6 L (1.8-2.4) mg/dL Total Protein 6.3 L (6.4-8.2) g/dL Albumin 3.3 L (3.4-5.0) g/dL Ur Leukocyte Esterase Trace H (Negative) Urine Glucose 500 H (Negative) mg/dL 09/22/18 Range/Units 06:12 RBC (4.50-6.00) m/cumm Hgb (13.5-17.5) g/dL Hct (40.0-50.0) % Plt Count (130-400) x1000/uL MPV (8.0-11.0) fL Absolute Lymphocytes (1.2-3.4) k/cumm Anion Gap 11.2 H (3-11) mmol/L BUN 64 H (7-18) mg/dL Creatinine 2.78 H D (0.70-1.30) mg/dL Glucose (70-100) mg/dL Calcium (8.5-10.1) mg/dL Magnesium (1.8-2.4) mg/dL Total Protein (6.4-8.2) g/dL Albumin (3.4-5.0) g/dL Ur Leukocyte Esterase (Negative) Urine Glucose (Negative) mg/dL Vital Signs Temperature 38.3 C H 09/22/18 07:29 Temperature Source Tympanic 09/22/18 07:29 Pulse 87 09/22/18 04:31 Pulse 89 09/22/18 04:31 Respiratory Rate 22 09/22/18 04:31 Respiratory Effort Labored 09/22/18 05:52 Respiratory Depth Normal 09/22/18 00:37 Respiratory Pattern Tachypnea 09/22/18 00:37 Blood Pressure 115/48 L 09/22/18 04:31 Blood Pressure Mean 66 09/22/18 04:31 Blood Pressure Position Supine 09/22/18 00:02 Pulse Oximetry 93 L 09/22/18 04:31 Oxygen Delivery Method Nasal Cannula 09/22/18 05:52 Oxygen Flow Rate 3 09/22/18 05:52 Pain Level 5 09/22/18 05:52 Intake & Output 09/21/18 09/21/18 09/22/18 11:59 23:59 11:59 Intake Total 1550 / 1550 Output Total 6500 / 6500 Balance -4950 / -4950 Weight 114.7 kg Intake: IV 1550 / 1550 Output: Urine 6500 / 6500 Other: Urine Color Light Veronica Urine Appearance Sediment Laboratory Results WBC 5.61 k/cumm (4.4-10.8) 09/22/18 00:18 RBC 3.72 m/cumm (4.50-6.00) L 09/22/18 00:18 Hgb 10.8 g/dL (13.5-17.5) L 09/22/18 00:18 Hct 33.5 % (40.0-50.0) L 09/22/18 00:18 MCV 90.1 fL (80-95) 09/22/18 00:18 MCH 29.0 pg (27.0-33.0) 09/22/18 00:18 MCHC 32.2 g/dL (32.0-36.0) 09/22/18 00:18 RDW 13.6 % (11.8-14.1) 09/22/18 00:18 Plt Count 102 x1000/uL (130-400) L 09/22/18 00:18 MPV 12.2 fL (8.0-11.0) H 09/22/18 00:18 Immature Gran % 0.2 09/22/18 00:18 Neutrophils % 84.9 09/22/18 00:18 Lymphocytes % 6.8 09/22/18 00:18 Monocytes % 7.7 09/22/18 00:18 Eosinophils % 0.4 09/22/18 00:18 Basophils % 0.0 09/22/18 00:18 Absolute Neutrophils 4.77 k/cumm (1.2-6.7) 09/22/18 00:18 Absolute Lymphocytes 0.38 k/cumm (1.2-3.4) L 09/22/18 00:18 Absolute Monocytes 0.43 k/cumm (0.11-0.7) 09/22/18 00:18 Absolute Eosinophils 0.02 k/cumm (0.0-0.7) 09/22/18 00:18 Absolute Basophils 0.00 k/cumm (0.0-0.2) 09/22/18 00:18 Sodium 138 mmol/L (136-145) 09/22/18 06:12 Potassium 3.8 mmol/L (3.5-5.1) 09/22/18 06:12 Chloride 100 mmol/L (98-107) 09/22/18 06:12 Carbon Dioxide 26.8 mmol/L (21.0-32.0) 09/22/18 06:12 Anion Gap 11.2 mmol/L (3-11) H 09/22/18 06:12 BUN 64 mg/dL (7-18) H 09/22/18 06:12 Creatinine 2.78 mg/dL (0.70-1.30) H D 09/22/18 06:12 Estimated GFR/1.73 m2 22.57 (mL/min/1.73m2) 09/22/18 06:12 Glucose 57 mg/dL (70-100) L 09/22/18 00:18 Lactate 0.8 mmol/l (0.6-1.4) 09/22/18 00:18 Calcium 7.5 mg/dL (8.5-10.1) L 09/22/18 00:18 Magnesium 1.6 mg/dL (1.8-2.4) L 09/22/18 00:18 Total Bilirubin 0.5 mg/dL (0.2-1.0) 09/22/18 00:18 AST 19 U/L (15-37) 09/22/18 00:18 ALT 18 U/L (12-78) 09/22/18 00:18 Alkaline Phosphatase 65 U/L (46-116) 09/22/18 00:18 Troponin I < 0.02 ng/mL (0.00-0.06) 09/22/18 00:18 Total Protein 6.3 g/dL (6.4-8.2) L 09/22/18 00:18 Albumin 3.3 g/dL (3.4-5.0) L 09/22/18 00:18 Urine Color Yellow (Yellow) 09/22/18 00:50 Urine Clarity Clear 09/22/18 00:50 Urine pH 5.5 (5-8) 09/22/18 00:50 Ur Specific [place] 1.010 (1.005-1.025) 09/22/18 00:50 Urine Protein Negative mg/dL (Negative) 09/22/18 00:50 Urine Ketones Negative mg/dL (Negative) 09/22/18 00:50 Urine Blood Negative (Negative) 09/22/18 00:50 Urine Nitrite Negative (Negative) 09/22/18 00:50 Urine Bilirubin Negative (Negative) 09/22/18 00:50 Urine Urobilinogen 0.2 EU/dL (Up TO 0.2) 09/22/18 00:50 Ur Leukocyte Esterase Trace (Negative) H 09/22/18 00:50 Urine RBC 0-2 (0-2) 09/22/18 00:50 Urine WBC 5-10 HPF (0-5) 09/22/18 00:50 Ur Epithelial Cells Rare HPF (Negative) 09/22/18 00:50 Urine Crystals Negative HPF (Negative) 09/22/18 00:50 Urine Bacteria Many HPF (Negative) 09/22/18 00:50 Urine Casts Negative LPF (Negative) 09/22/18 00:50 Urine Mucus Negative (Negative) 09/22/18 00:50 Ur Culture Indicated? Yes 09/22/18 00:50 Urine Glucose 500 mg/dL (Negative) H 09/22/18 00:50 CXR: Right basilar discoid atelectasis.
[2018-09-22] MEDS: Pregabalin 100 MG CAP PO ×3 (08:55→20:01)
[2018-09-22] MEDS: Furosemide 20 MG TAB PO (08:56)
[2018-09-22] MEDS: Tamsulosin 0.4 MG CAPCR PO (08:56)
[2018-09-22] MEDS: oxyCODONE-CR 10 MG TABCR 30 MG PO ×3 (08:56→20:01)
[2018-09-22] MEDS: DULoxetine 30 MG CAP 60 MG PO (08:56)
[2018-09-22] MEDS: Aspirin 81 MG CHEW PO (08:56)
[2018-09-22] MEDS: Omeprazole 20 MG CAPCR PO (08:57)
--- NOTE | 2018-09-22 09:12 | DI.RAD_ITS ---
SYMPTOM/DIAGNOSIS: HYPOXIA, CRACKLES PORTABLE CHEST: 22 SEPTEMBER 2018 The lungs are suboptimally inflated. There is some elevation of the right diaphragm. This is not changed from 2017. There is mild basilar atelectasis. The heart size is unchanged. IMPRESSION: No acute abnormality.
[2018-09-22 09:26] LABS: Lactate-non-spesis 1.2 mmol/l (0.6-1.4)
--- NOTE | 2018-09-22 09:47 | DI.VRAD_ITS ---
EXAM: XR Chest, 1 View EXAM DATE/TIME: 09/22/2018 8:34 AM CLINICAL HISTORY: 73 years old, male; Hypoxia; Crackles TECHNIQUE: Imaging protocol: XR of the chest, 1 view. COMPARISON: CR CHEST 2 VIEWS PA,LAT 02/15/2017 8:44 AM FINDINGS: Lungs: Poor inspiration with decreased lung volumes. There is right basilar discoid atelectasis. No acute lung consolidation or pulmonary edema. Pleural space: No pleural effusion or pneumothorax. Heart/Mediastinum: The heart is borderline enlarged. The mediastinal contours are normal. Diaphragm: The right hemidiaphragm is slightly elevated, present before. Bones/joints: Multilevel disc degeneration present in the thoracic spine. IMPRESSION: Right basilar discoid atelectasis. Dictated and Authenticated by: Jigar Wolfe MD. Ordering:PAL Carr MD
[2018-09-22 10:14] LABS: Procalcitonin 11.6 ng/mL
[2018-09-22] MEDS: Docusate Sodium 100 MG CAP PO ×2 (10:48→23:04)
[2018-09-22] MEDS: Senna TAB 1 TAB PO ×2 (10:48→20:00)
[2018-09-22] MEDS: MAGNESIUM SULFATE 2 GM/50 ML BAG IVPB (10:49)
[2018-09-22] MEDS: DEXTROSE 5%-LACTATED RINGERS 1,000 ML 100 ML IV ×2 (10:50→23:55)
[2018-09-22] MEDS: Nystatin POWDER 60 GM JAR TP ×3 (10:54→20:02)
--- NOTE | 2018-09-22 12:15 | PHARADMIT ---
Addendum entered by Madina Raphael 09/23/18 16:01: Confusion and impulsiveness has improved, Toxic metabolic encephalopathy (Zosyn/Vanco were added today), pt is diabetic High amount of Oxycodone taken chronically, is having bowel movements abdominal distention/pain 01/17-trying Reglan-need to monitor mental status, added SC Heparin repeat chest xray Monday possible transfer to [place], watch for Micro growth, Procalcitonin level increasing Original Note: Admission Pharmacy Clinical Review UTI-septic???, DEHYDRATION, CONFUSION Code Status Full Code Current Weight 114.7 kg Renally Cleared and Narrow Therapeutic Index Meds CrCl~27ml/min QTc Value / Action Taken QTC 405 BP Control, Fever BP 115/48 Fever 38.3 Electrolytes reviewed Mag 1.6 (2gram IV x 1 dose) K+ 3.8, Na++ 138 DVT Prophylaxis Not at this time...Hematuria, mentions starting Heparin SC Opiate Usage / Scheduled Bowel Regimen Ordered Yes, Oxycontin and OxyIR-yes bowel meds several BM's heme negative Plt/SCr for Heparin / Enoxaparin Plt 102 SCr 2.78 INR for Warfarin H/H stable, WBC/Bands H/H 10.8/33.5 WBC 5.61 Antibiotic appropriateness Rocephin for UTI-septic? Cultures and Sensitivities blood and urine pending Surgical ABX d/c within 24 hr DM control / Insulin Dosing BG 57 Novolog Heart Failure (Check EF%) (VIKY's, B-Block, Diuretics) Lasix, Toprol-on hold, was hypotensive IV to PO Switch Home Meds Reviewed Home Meds Not Ordered Amlodipine, Atorvastatin, Chlorthalidone,Jardiance, Lantus, Losartan, NTG, Nortriptyline, Comments Hematuria
[2018-09-22] MEDS: Acetaminophen 325 MG TAB 650 MG PO (13:56)
[2018-09-22 14:15] LABS: BE 0.2 mmol/L (-3-3); HCO3 24 mmol/L (22-28); pCO2 35 mmHg (34-47); pH 7.45 (7.35-7.45); pO2 70 mmHg (83-108); sO2 94 % (94-98); tCO2 22 mmol/L (22-29)
[2018-09-22 14:18] LABS: FIO2L 3 L; Site Right Radial
[2018-09-22] MEDS: Heparin 5,000 UNITS/ML VIAL 5000 UNITS SC (17:21)
[2018-09-22] MEDS: Insulin Aspart 300 UNITS/3 ML PEN SC (17:22)
[2018-09-22 22:55] LABS: HCT 30.8 % (40.0-50.0); HGB 9.9 g/dL (13.5-17.5)
[2018-09-22] MEDS: Polyethylene Glycol 3350 17 GM PACKET PO (23:04)
[2018-09-22] MEDS: Milk of Magnesia 30 ML CUP PO (23:04)
[2018-09-23] VITALS (47 sets, daily range): BP systolic 54–147; BP diastolic 42–127; PULSE 78–158; RESP 4–29; TEMP 36.5–37.5; O2SAT 89–97
[2018-09-23 01:26] LABS: BE (Venous) -0.2 mmol/L (-3-3); HCO3 (Venous) 26 mmol/L (22-28); O2 Sat (Venous) 98 % (70-80); TCO2 (Venous) 25 mmol/L (22-29); pCO2 (Venous) 49 mm/Hg (34-47); pH (Venous) 7.33 (7.32-7.43); pO2 (Venous) 104 mm/Hg (28-44)
[2018-09-23 01:29] LABS: Abs Immature Grans 0.05 k/cumm (0.0-0.09); HCT 30.1 % (40.0-50.0); HGB 9.7 g/dL (13.5-17.5); Mean Corp. HGB Concentration 32.2 g/dL (32.0-36.0); Mean Corpuscular Hemoglobin 29.1 pg (27.0-33.0); Mean Corpuscular Volume 90.4 fL (80-95); Mean Platelet Volume 12.8 fL (8.0-11.0); RBC 3.33 m/cumm (4.50-6.00); RBC Distribution Width 13.7 % (11.8-14.1); White Blood Cell Count 7.41 k/cumm (4.4-10.8)
[2018-09-23 01:39] LABS: ALT 19 U/L (12-78); AST 30 U/L (15-37); Albumin 2.7 g/dL (3.4-5.0); Alkaline Phosphatase 58 U/L (46-116); Anion Gap 9.7 mmol/L (3-11); BUN 56 mg/dL (7-18); Bilirubin, Total 0.5 mg/dL (0.2-1.0); CO2 27.3 mmol/L (21.0-32.0); CREATININE 2.16 mg/dL (0.70-1.30); Calcium 7.6 mg/dL (8.5-10.1); Chloride 96 mmol/L (98-107); Glucose 302 mg/dL (70-100); Potassium 3.5 mmol/L (3.5-5.1); Sodium 133 mmol/L (136-145); Total Protein 5.9 g/dL (6.4-8.2)
[2018-09-23 02:05] LABS: Diff Comment Manual Differential
[2018-09-23 02:06] LABS: Absolute Lymphocyte Count 0.74 k/cumm (1.2-3.4); Absolute Monocyte Count 0.22 k/cumm (0.11-0.7); Absolute Neutrophil Count 6.45 k/cumm (1.2-6.7); Basophilic Stippling Present
[2018-09-23 02:09] LABS: Platelet Count 95 x1000/uL (130-400)
--- NOTE | 2018-09-23 02:16 | DI.RAD_ITS ---
SYMPTOM/DIAGNOSIS: ABD PAIN, CHECK FOR GAS ENTRAPMENT AP SEMI-ERECT CHEST AND FLAT AND DECUBITUS VIEWS OF ABDOMEN: The chest film is limited due to lordotic position. The upper lobes are grossly clear. Abdominal soft tissues overlie the lung bases and obscure the cardiac silhouette. There is distension of the stomach as well as gas within the colon. No free air is identified. IMPRESSION: Gastric distension and mild colonic distension.
--- NOTE | 2018-09-23 03:31 | DI.VRAD_ITS ---
EXAM: XR Abdomen 2 Views with XR Chest 1 View EXAM DATE/TIME: 09/23/2018 2:16 AM CLINICAL HISTORY: 73 years old, male; Abdominal pain; Generalized; Patient HX: Abdomen pain, check for gas entrapment. TECHNIQUE: Imaging protocol: XR of the abdomen (2 views) with XR chest (1 view). COMPARISON: SC XR PORTABLE CHEST AP 09/22/2018 9:11 AM FINDINGS: There is cardiomegaly. The lung lizarraga are hypoventilated. No infiltrates are present. There is no pleural effusion or pneumothorax. The pulmonary vascularity is normal. There is gaseous distention of the stomach. No dilated loops of small bowel are seen. There is air seen throughout the colonic structures. There is no free intraperitoneal air. IMPRESSION: 1. Gaseous distention of the stomach which could represent gastric outlet obstruction. No evidence for small bowel obstruction is seen. 2. No free intraperitoneal air. 3. Hypoventilated lungs. 4. Cardiomegaly. Dictated and Authenticated by: Rai Rush MD. Ordering:FLORECITA Shanks MD
--- NOTE | 2018-09-23 04:16 | W.PM.PROGNOT ---
Date of Service Date of service: 09/23/18 Time of Service: 04:16 Assessment and Plan (1) Acute distention of stomach: Start date: 09/22/18 Current visit: Yes Status: Acute This is a 73-year-old gentleman who has acute distention of his abdomen with plain film x-ray showing possible gastric outlet obstruction and distention of stomach. NG tube will be placed to low Gomco intermittent suction with his respiratory status being compromised by his abdominal distention. Because of the initial presentation with sepsis and possible colitis on CT, I will expand his antibiotic coverage with Zosyn and discontinuing Rocephin. He is not at his baseline with no status at this continues to be problematic. He is a full code. 120 minutes was spent with critical care time and care reviewing the patient's case by several phone calls with orders given phone and physically in the ICU at patient's bedside with reassessment of status and adjustment of therapies with possibility of acute respiratory and overall physical decompensation and the patient who is a full code. (2) Colitis: Start date: 09/23/18 Current visit: Yes Status: Acute There was some stranding adjacent to the colon on CT scan upon admission and with his advancing abdominal symptoms I will start Zosyn and discontinue Rocephin. Surgical consultation may be considered in the morning. (3) Colonic stricture: Start date: 09/22/18 Current visit: Yes Status: Acute This may be contributing to patient's continued abdominal distention and discomfort and compromised respiratory status. Consider surgical consultation in the morning. Dr. Xiong has consulted surgery by phone on the day of admission. (4) Sepsis associated hypotension: Start date: 09/22/18 Current visit: Yes Status: Acute Expand antibiotic therapy to cover abdominal process and follow-up on cultures. Subjective Interval history since last seen: This is a 73-year-old gentleman admitted to ICU early the day of admission on 09/22/2018 with fever and UTI diagnosis as a source along with soft blood pressures but no elevated white blood cell count and only borderline tachycardia being just above 90 bpm. He was thought to be possibly septic bradycardia through the criteria with altered mental status as well. During the night of admission patient began to have worsening altered mental status and progressively distended abdomen though he did have a small bowel movement reported by his nurse. His bowel sounds were quiet at present and all quadrants except for the right upper quadrant. CT scan had shown possible strictures or not complete obstructions in the transverse colon and 2 different points. It did also show a normal appendix with some stranding suggesting possible colitis. Patient's antibiotic coverage was only Rocephin for his UTI and with his worsening abdominal distention he was having more respiratory distress and dropping his oxygen levels. I had several calls from the ICU nurse about her concerns and the above findings starting around 10 PM with ongoing calls concerned and I did order plain film imaging of his abdomen and repeat labs and came in to the hospital to evaluate patient. The ICU nurse thought that his lungs did have increased wheezing with the patient being a previous smoker along with his hypoxemia she was concerned about fluid in the lower lizarraga of his lungs by her exam. He did receive a DuoNeb treatment without change in his respiratory status with audible wheezing at the bedside. He did have atelectasis on his previous imaging at admission. Exam Narrative Exam Narrative: General: Patient is obtunded and not responding to verbal stimuli not conversing. He appears restless moving about in the bed and moving all extremities. He is not opening his eyes. Skin: Pale, warm and dry with skin changes over lower extremities as described. HEENT: Normocephalic with dry oral mucosa. Neck: No JVD. Lungs: Fair aeration upon inspiration with slight increased expiratory phase and audible upper airway wheezing and almost grunting with breathing. There is decreased aeration at the bases patient not able to sit up for exam. Heart: Regular rate and rhythm with no murmurs gallops appreciated. Abdomen: Protuberant but soft and not rigid to palpation with patient uncomfortable and having voluntary guarding over most of his abdomen with deep palpation but more on the right. No rebound evident. Bowel sounds are hypoactive in all quadrants. Extremities: Marked hyperpigmented, shiny and atrophic skin over both lower extremities with decreased pulses and decreased capillary refill. No clubbing no cyanosis. Neuro: Patient was all extremities, he is obtunded and not responding except to verbal stimuli but is not opening his eyes and not speaking and conversing. The nurse did note that he does occasionally converse but is confused. Objective Objective Clinical Data: Abnormal lab results 09/22/18 09/22/18 09/22/18 Range/Units 06:12 13:44 22:42 RBC (4.50-6.00) m/cumm Hgb 9.9 L (13.5-17.5) g/dL Hct 30.8 L (40.0-50.0) % Plt Count (130-400) x1000/uL MPV (8.0-11.0) fL Absolute Lymphocytes (1.2-3.4) k/cumm pO2 70 L (83-108) mmHg VBG pCO2 (34-47) mm/Hg VBG pO2 (28-44) mm/Hg VBG O2 Saturation (70-80) % Sodium (136-145) mmol/L Chloride (98-107) mmol/L Anion Gap 11.2 H (3-11) mmol/L BUN 64 H (7-18) mg/dL Creatinine 2.78 H D (0.70-1.30) mg/dL Glucose (70-100) mg/dL Calcium (8.5-10.1) mg/dL Total Protein (6.4-8.2) g/dL Albumin (3.4-5.0) g/dL 09/23/18 09/23/18 09/23/18 Range/Units 01:05 01:05 01:05 RBC 3.33 L (4.50-6.00) m/cumm Hgb 9.7 L (13.5-17.5) g/dL Hct 30.1 L (40.0-50.0) % Plt Count 95 L (130-400) x1000/uL MPV 12.8 H (8.0-11.0) fL Absolute Lymphocytes 0.74 L (1.2-3.4) k/cumm pO2 (83-108) mmHg VBG pCO2 49 H (34-47) mm/Hg VBG pO2 104 H (28-44) mm/Hg VBG O2 Saturation 98 H (70-80) % Sodium 133 L (136-145) mmol/L Chloride 96 L (98-107) mmol/L Anion Gap (3-11) mmol/L BUN 56 H (7-18) mg/dL Creatinine 2.16 H (0.70-1.30) mg/dL Glucose 302 H D (70-100) mg/dL Calcium 7.6 L (8.5-10.1) mg/dL Total Protein 5.9 L (6.4-8.2) g/dL Albumin 2.7 L (3.4-5.0) g/dL Vital Signs Temperature 36.5 C 09/22/18 23:22 Temperature Source Tympanic 09/22/18 23:22 Pulse 89 09/22/18 18:00 Pulse 89 09/22/18 18:01 Respiratory Rate 19 09/22/18 18:01 Respiratory Effort Labored 09/22/18 23:22 Respiratory Depth Retractive 09/22/18 23:22 Respiratory Pattern Normal 09/22/18 23:22 Blood Pressure 119/55 L 09/22/18 18:00 Blood Pressure Mean 70 09/22/18 18:00 Blood Pressure Position Supine 09/22/18 00:02 Pulse Oximetry 92 L 09/22/18 23:22 Oxygen Delivery Method OxyMask 09/22/18 23:22 Oxygen Flow Rate 3 09/22/18 23:04 Pain Level 5 09/22/18 23:22 Intake & Output 09/22/18 09/22/18 09/23/18 11:59 23:59 11:59 Intake Total 2341.667 / 6751.667 4410 / 6751.667 Output Total 6500 / 34950 3850 / 64631 750 / 750 Balance -4158.333 / -3598.333 560 / -3598.333 -750 / -750 Weight 114.7 kg Intake: IV 2341.667 / 3311.667 970 / 3311.667 Oral 3440 / 3440 Output: Urine 6500 / 03581 3850 / 96360 750 / 750 Other: Urine Color Light Veronica Brown Dark Red Bright Red Urine Appearance Sediment Sediment Comment Marmolejo in place draining lg amts of urine marmolejo in place. draining and patent. has begun draining cloudy yellow urine at this time. Stool Occult Blood Negative Stool Size Small Stool Characteristics Soft Formed Laboratory Results WBC 7.41 k/cumm (4.4-10.8) D 09/23/18 01:05 RBC 3.33 m/cumm (4.50-6.00) L 09/23/18 01:05 Hgb 9.7 g/dL (13.5-17.5) L 09/23/18 01:05 Hct 30.1 % (40.0-50.0) L 09/23/18 01:05 MCV 90.4 fL (80-95) 09/23/18 01:05 MCH 29.1 pg (27.0-33.0) 09/23/18 01:05 MCHC 32.2 g/dL (32.0-36.0) 09/23/18 01:05 RDW 13.7 % (11.8-14.1) 09/23/18 01:05 Plt Count 95 x1000/uL (130-400) L 09/23/18 01:05 MPV 12.8 fL (8.0-11.0) H 09/23/18 01:05 Immature Gran % 0.0 09/23/18 01:05 Neutrophils % 62.0 09/23/18 01:05 Band Neutrophils % 25.0 % 09/23/18 01:05 Lymphocytes % 10.0 09/23/18 01:05 Monocytes % 3.0 09/23/18 01:05 Eosinophils % 0.0 09/23/18 01:05 Basophils % 0.0 09/23/18 01:05 Absolute Neutrophils 6.45 k/cumm (1.2-6.7) 09/23/18 01:05 Absolute Lymphocytes 0.74 k/cumm (1.2-3.4) L 09/23/18 01:05 Absolute Monocytes 0.22 k/cumm (0.11-0.7) 09/23/18 01:05 Absolute Eosinophils 0.00 k/cumm (0.0-0.7) 09/23/18 01:05 Absolute Basophils 0.00 k/cumm (0.0-0.2) 09/23/18 01:05 Differential Comment Manual differential 09/23/18 01:05 Basophilic Stippling Present 09/23/18 01:05 Sample Site Right radial 09/22/18 13:44 pCO2 35 mmHg (34-47) 09/22/18 13:44 pO2 70 mmHg (83-108) L 09/22/18 13:44 O2 Saturation 94 % (94-98) 09/22/18 13:44 ABG pH 7.45 (7.35-7.45) 09/22/18 13:44 ABG HCO3 24 mmol/L (22-28) 09/22/18 13:44 ABG Total CO2 22 mmol/L (22-29) 09/22/18 13:44 ABG Base Excess 0.2 mmol/L (-3-3) 09/22/18 13:44 VBG pH 7.33 (7.32-7.43) 09/23/18 01:05 VBG pCO2 49 mm/Hg (34-47) H 09/23/18 01:05 VBG pO2 104 mm/Hg (28-44) H 09/23/18 01:05 VBG HCO3 26 mmol/L (22-28) 09/23/18 01:05 VBG Total CO2 25 mmol/L (22-29) 09/23/18 01:05 VBG O2 Saturation 98 % (70-80) H 09/23/18 01:05 VBG Base Excess -0.2 mmol/L (-3-3) 09/23/18 01:05 Oxygen Liter Flow 3 L 09/22/18 13:44 Sodium 133 mmol/L (136-145) L 09/23/18 01:05 Potassium 3.5 mmol/L (3.5-5.1) 09/23/18 01:05 Chloride 96 mmol/L (98-107) L 09/23/18 01:05 Carbon Dioxide 27.3 mmol/L (21.0-32.0) 09/23/18 01:05 Anion Gap 9.7 mmol/L (3-11) 09/23/18 01:05 BUN 56 mg/dL (7-18) H 09/23/18 01:05 Creatinine 2.16 mg/dL (0.70-1.30) H 09/23/18 01:05 Estimated GFR/1.73 m2 30.20 (mL/min/1.73m2) 09/23/18 01:05 Glucose 302 mg/dL (70-100) H D 09/23/18 01:05 Lactate 1.2 mmol/l (0.6-1.4) 09/22/18 09:10 Calcium 7.6 mg/dL (8.5-10.1) L 09/23/18 01:05 Magnesium 1.6 mg/dL (1.8-2.4) L 09/22/18 00:18 Total Bilirubin 0.5 mg/dL (0.2-1.0) 09/23/18 01:05 AST 30 U/L (15-37) 09/23/18 01:05 ALT 19 U/L (12-78) 09/23/18 01:05 Alkaline Phosphatase 58 U/L (46-116) 09/23/18 01:05 Troponin I < 0.02 ng/mL (0.00-0.06) 09/22/18 00:18 Total Protein 5.9 g/dL (6.4-8.2) L 09/23/18 01:05 Albumin 2.7 g/dL (3.4-5.0) L 09/23/18 01:05 Procalcitonin 11.6 ng/mL 09/22/18 09:10 Urine Color Yellow (Yellow) 09/22/18 00:50 Urine Clarity Clear 09/22/18 00:50 Urine pH 5.5 (5-8) 09/22/18 00:50 Ur Specific Glidden 1.010 (1.005-1.025) 09/22/18 00:50 Urine Protein Negative mg/dL (Negative) 09/22/18 00:50 Urine Ketones Negative mg/dL (Negative) 09/22/18 00:50 Urine Blood Negative (Negative) 09/22/18 00:50 Urine Nitrite Negative (Negative) 09/22/18 00:50 Urine Bilirubin Negative (Negative) 09/22/18 00:50 Urine Urobilinogen 0.2 EU/dL (Up TO 0.2) 09/22/18 00:50 Ur Leukocyte Esterase Trace (Negative) H 09/22/18 00:50 Urine RBC 0-2 (0-2) 09/22/18 00:50 Urine WBC 5-10 HPF (0-5) 09/22/18 00:50 Ur Epithelial Cells Rare HPF (Negative) 09/22/18 00:50 Urine Crystals Negative HPF (Negative) 09/22/18 00:50 Urine Bacteria Many HPF (Negative) 09/22/18 00:50 Urine Casts Negative LPF (Negative) 09/22/18 00:50 Urine Mucus Negative (Negative) 09/22/18 00:50 Ur Culture Indicated? Yes 09/22/18 00:50 Urine Glucose 500 mg/dL (Negative) H 09/22/18 00:50 EXAM: XR Abdomen 2 Views with XR Chest 1 View EXAM DATE/TIME: 09/23/2018 2:16 AM CLINICAL HISTORY: 73 years old, male; Abdominal pain; Generalized; Patient HX: Abdomen pain, check for gas entrapment. TECHNIQUE: Imaging protocol: XR of the abdomen (2 views) with XR chest (1 view). COMPARISON: SC XR PORTABLE CHEST AP 09/22/2018 9:11 AM FINDINGS: There is cardiomegaly. The lung lizarraga are hypoventilated. No infiltrates are present. There is no pleural effusion or pneumothorax. The pulmonary vascularity is normal. There is gaseous distention of the stomach. No dilated loops of small bowel are seen. There is air seen throughout the colonic structures. There is no free intraperitoneal air. IMPRESSION: 1. Gaseous distention of the stomach which could represent gastric outlet obstruction. No evidence for small bowel obstruction is seen. 2. No free intraperitoneal air. 3. Hypoventilated lungs. 4. Cardiomegaly. Dictated and Authenticated by: Rai Rush MD. EXAM: XR Chest, 1 View EXAM DATE/TIME: 09/22/2018 8:34 AM CLINICAL HISTORY: 73 years old, male; Hypoxia; Crackles TECHNIQUE: Imaging protocol: XR of the chest, 1 view. COMPARISON: CR CHEST 2 VIEWS PA,LAT 02/15/2017 8:44 AM FINDINGS: Lungs: Poor inspiration with decreased lung volumes. There is right basilar discoid atelectasis. No acute lung consolidation or pulmonary edema. Pleural space: No pleural effusion or pneumothorax. Heart/Mediastinum: The heart is borderline enlarged. The mediastinal contours are normal. Diaphragm: The right hemidiaphragm is slightly elevated, present before. Bones/joints: Multilevel disc degeneration present in the thoracic spine. IMPRESSION: Right basilar discoid atelectasis. Dictated and Authenticated by: Jigar Wolfe MD EXAM: CT Chest Without Contrast EXAM DATE/TIME: 09/22/2018 1:17 AM CLINICAL HISTORY: 73 years old, male; Signs and symptoms; Bloating and fever and other: Low sats; Other: Not specified; Additional info: Non-contrast study due to insufficient labs TECHNIQUE: Imaging protocol: Axial computed tomography images of the chest without intravenous contrast. Coronal and sagittal reformatted images were created and reviewed. Radiation optimization: All CT scans at this facility use at least one of these dose optimization techniques: automated exposure control; mA and/or kV adjustment per patient size (includes targeted exams where dose is matched to clinical indication); or iterative reconstruction. COMPARISON: No relevant prior studies available. FINDINGS: Lungs: Bilateral lower lobe atelectatic changes present early pneumonia cannot be excluded. Pleural space: Unremarkable. No pneumothorax. No pleural effusion. Heart: There is moderate to severe atherosclerotic calcification of the coronary arteries. There is mild cardiomegaly. Pulmonary arteries: The pulmonary arteries are not enlarged. Aorta: The aorta demonstrates mild atherosclerotic calcification. Lymph nodes: There is no evidence of lymphadenopathy. Bones/joints: The skeletal structures and soft tissues show no evidence of fracture or other acute processes. The thoracic spine demonstrates moderate degenerative changes at multiple levels. Soft tissues: The soft tissues of the extrathoracic region are unremarkable. Upper abdomen: Please see CT of the abdomen and pelvis. IMPRESSION: Bilateral lower lobe atelectatic changes present early pneumonia cannot be excluded. EXAM: CT Abdomen and Pelvis Without Contrast EXAM DATE/TIME: 09/22/2018 1:17 AM CLINICAL HISTORY: 73 years old, male; Signs and symptoms; Bloating and fever and other: Low sats; Other: Not specified; Additional info: Non-contrast study due to insufficient labs TECHNIQUE: Imaging protocol: Axial computed tomography images of the abdomen and pelvis without contrast. Coronal and sagittal reformatted images were created and reviewed. Radiation optimization: All CT scans at this facility use at least one of these dose optimization techniques: automated exposure control; mA and/or kV adjustment per patient size (includes targeted exams where dose is matched to clinical indication); or iterative reconstruction. COMPARISON: No relevant prior studies available. FINDINGS: ABDOMEN: Liver: There are no focal liver lesions present. Gallbladder and bile ducts: The gallbladder is hydropic measuring 10 x 5.5 cm. The gallbladder is otherwise normal. There is no cholelitiasis, wall thickening or pericholecystic fluid to suggest cholecystitis. Pancreas: There is moderate to severe diffuse pancreatic atrophy. Spleen: The spleen is normal. Adrenals: The adrenal glands are normal. Kidneys and ureters: There is bilateral perinephric stranding. This may represent a mild inflammatory process or old inflammation and scarring. The kidneys are normal. Stomach and bowel: The stomach is distended with fluid and gas. There is a small hiatal hernia. The colon is distended with gas and fluid. There may be 2 separate areas of stricture at the proximal and distal transverse colon. While these may represent benign strictures, the possibility of malignancy cannot be excluded. No evidence of small bowel obstruction. There is moderate constipation. Soft tissue stranding seen within the right hemiabdomen adjacent to the colon. Inflammatory process colitis cannot be excluded. Appendix: A normal appendix is identified. There is no evidence of distention or periappendiceal inflammation to suggest appendicitis. PELVIS: Bladder: The bladder is decompressed by a Marmolejo catheter but is otherwise normal. There is a small amount of urinary bladder intraluminal air consistent with instrumentation. Reproductive: The prostate gland demonstrates calcification and moderate nonspecific enlargement. The seminal vesicles are normal. ABDOMEN and PELVIS: Intraperitoneal space: Normal. No free air. No significant fluid collection. Bones/joints: The lumbar spine demonstrates moderate to severe degenerative changes. Soft tissues: There are bilateral inguinal hernias containing fat and mesentery. The extra-abdominal soft tissues are normal. Vasculature: Normal. No abdominal aortic aneurysm. Lymph nodes: Normal. No enlarged lymph nodes. Other findings: Motion artifact does moderately limit the sensitivity of this examination. IMPRESSION: 1. The colon is distended with gas and fluid. There may be 2 separate areas of stricture at the proximal and distal transverse colon. While these may represent benign strictures, the possibility of malignancy cannot be excluded. No evidence of small bowel obstruction. 2. Soft tissue stranding seen within the right hemiabdomen adjacent to the colon. Inflammatory process colitis cannot be excluded. 3. There is moderate constipation. Dictated and Authenticated by: Tk Roberson MD. Reviewed Pertinent PMH: Yes Objective Narrative Objective Narrative: Physical exam my review of records seems to be revealing an advancing abdominal process. CT scan initially did show 2 separate areas of stricture of the proximal and distal transverse colon and some stranding adjacent to the colon in the right hemiabdomen as well as atelectasis in the lungs. Patient is only on Rocephin will cover possible UTI the antibiotic need to be expanded to cover abdominal processes. We will place an NG tube because of his distended abdomen with the gastric distention and possible gastric outlet obstruction on plain film x-ray.
[2018-09-23] MEDS: PIPERACILLIN/TAZO 3.375 GM in Normal Saline 50 ML IVPB ×3 (06:51→18:26)
[2018-09-23 07:19] LABS: HCT 28.9 % (40.0-50.0); HGB 9.2 g/dL (13.5-17.5); Mean Corp. HGB Concentration 31.8 g/dL (32.0-36.0); Mean Corpuscular Hemoglobin 28.8 pg (27.0-33.0); Mean Corpuscular Volume 90.6 fL (80-95); Mean Platelet Volume 12.8 fL (8.0-11.0); Procalcitonin 24.3 ng/mL; RBC 3.19 m/cumm (4.50-6.00); RBC Distribution Width 13.5 % (11.8-14.1); White Blood Cell Count 5.71 k/cumm (4.4-10.8)
--- NOTE | 2018-09-23 07:51 | PDOC.CMPRO ---
- If Service Date Differs Date of service: 09/23/18 Time of Service: 07:51 Care Management Progress Note S/O:Parviz was sitting up in a chair visiting with his Sommer when CM came to see him. Me appeared much more awake today and was able to answer many questions that eluded him yesterday. He was able to tell me that he has 3 children (not 5 like he thought yesterday) and several grandchildren. 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 Parviz and his describe varying challenges with ambulation at home. He owns a walker, a wheelchair and a cane and uses all of them at different times. Sommer relayed that he uses them frequently but Parviz insisted it was only once in a while. They do have a ramp to outdoor stairs at home. Sommer also revealed that Parviz has [employer] and has a case folder out of the [place] office. A: Parviz is a 73 year old man admitted to [facility] on 09/21/18 with a diagnosis of UTI P:Parviz remains ICU level of care today. he is receiving IV fluids and IV fluids. Parviz will likely be discharged home with services when ready. CM will continue to provide support to patient, family and the discharge planning process.
[2018-09-23 08:06] LABS: Absolute Basophil Count 0.06 k/cumm (0.0-0.2); Absolute Lymphocyte Count 0.51 k/cumm (1.2-3.4); Absolute Monocyte Count 0.11 k/cumm (0.11-0.7)
[2018-09-23 08:07] LABS: Anisocytosis 1+; Diff Comment Manual Differential; Polychromasia Present
[2018-09-23 08:08] LABS: Platelet Count 90 x1000/uL (130-400)
[2018-09-23 08:09] LABS: Absolute Neutrophil Count 4.97 k/cumm (1.2-6.7)
[2018-09-23] MEDS: Insulin Aspart 300 UNITS/3 ML PEN SC ×3 (08:12→17:18)
--- NOTE | 2018-09-23 08:15 | W.PM.PROGNOT ---
Date of Service Date of service: 09/23/18 Time of Service: 08:15 Assessment and Plan (1) Sepsis associated hypotension: Current visit: Yes Status: Acute Due to UTI, POA. C&S is not growing any organisms, but UA is consistent with a UTI and clinically the patient does have it, in addition to presence of perinephric stranding on CT. Blood cultures: NGTD. Abx changed to vancomycin/zosyn after 1 day of IV rocephin. Unfortunately, I am not sure what rising procalcitonin now means. It will be repeated tomorrow. Continue to monitor in ICU due to the amount of nursing attention that this patient is requiring due to his confusion. (2) UTI (urinary tract infection): Current visit: Yes Status: Acute As above (3) Toxic metabolic encephalopathy: Current visit: Yes Status: Acute Due to above - continue to monitor mental status while treating infection. My impression is that this has improved. Needs ICU predominantly for that reason. Consider CT head. Obtain Lyme/tick panel (does have a dog). (4) Urinary retention: Current visit: Yes Status: Acute s/p marmolejo - as above (5) Gastric distention: Current visit: Yes Status: Acute Likely due to gastroparesis. Unable to tolerate NGT insertion. Started on a small dose of IV reglan - will monitor. Trial clears. (6) Hematuria: Current visit: Yes Status: Resolved Due to patient pulling on marmolejo - monitor behaviors (7) Shortness of breath: Current visit: No Status: Chronic Not appreciated today. He will need a sleep study as outpatient. Current oxygen requirement is felt to be predominantly due to atelectasis. We will repeat CXR tomorrow to ensure that no additional process is going on. (8) Hypoxia: Current visit: Yes Status: Acute Repeat CXR tomorrow - CXR yesterday only with atelectasis, no PNA, no CHF. Will need a sleep study. (9) Diabetes mellitus with neuropathy: Current visit: No Status: Chronic BG's did trend up - the patient's insulin is being adjusted accordingly. (10) Colonic stricture: Current visit: Yes Status: Acute Discussed with general surgery - as the patient is clearly not obstructed, he will require an outpatient colonoscopy to ensure that there is no malignancy. (11) Discharge planning issues: Current visit: Yes Status: Acute Full code. Continues to require ICU. (12) DVT prophylaxis: Current visit: Yes Status: Acute TEDS + SCD's Subjective Interval history since last seen: Denies headache, dizziness, chest pain, shortness of breath, nausea, abdominal pain. He states his abdomen is bothering him because it is itchy, but he denies pain. Mental status is slightly better today, but still has episodes when he tries to get out of bed/pulling on wires/IV's. His thinks he is better, but not at his baseline, and she is worried. A&Ox2, knows the president. Watched the news this morning. Became hypoxic overnight - down to 88% on 2L - 5L oxymask required. Now again on 2L, saturating in the 90's. Having BM's, passing flatus. Abdomen became firm and distended overnight - NGT was ordered, but attempts were unsuccessful. Seen by general surgery - it is felt that his gastric distention is likely due to gastroparesis; reglan started. He is tolerating liquids PO. Hematuria has resolved. Exam Narrative Exam Narrative: General: Middle-aged Obese male, A&Ox2, sitting on the commode getting a bath; less restless/more calm HEENT: EOMI, MMM Heart: RRR,no m/r/g Lungs: wheezing R upper lung field GI: abdomen is soft, distended, nontender at all levels of palpation, + BS Extremities: trace edema BLE's, R hand with contracted fingers. Minimal LUE edema Objective Objective Clinical Data: Abnormal lab results 09/22/18 09/22/18 09/23/18 Range/Units 13:44 22:42 01:05 RBC (4.50-6.00) m/cumm Hgb 9.9 L (13.5-17.5) g/dL Hct 30.8 L (40.0-50.0) % MCHC (32.0-36.0) g/dL Plt Count (130-400) x1000/uL MPV (8.0-11.0) fL Absolute Lymphocytes (1.2-3.4) k/cumm pO2 70 L (83-108) mmHg VBG pCO2 (34-47) mm/Hg VBG pO2 (28-44) mm/Hg VBG O2 Saturation (70-80) % Sodium 133 L (136-145) mmol/L Chloride 96 L (98-107) mmol/L BUN 56 H (7-18) mg/dL Creatinine 2.16 H (0.70-1.30) mg/dL Glucose 302 H D (70-100) mg/dL Calcium 7.6 L (8.5-10.1) mg/dL Total Protein 5.9 L (6.4-8.2) g/dL Albumin 2.7 L (3.4-5.0) g/dL 09/23/18 09/23/18 09/23/18 Range/Units 01:05 01:05 06:30 RBC 3.33 L 3.19 L (4.50-6.00) m/cumm Hgb 9.7 L 9.2 L (13.5-17.5) g/dL Hct 30.1 L 28.9 L (40.0-50.0) % MCHC 31.8 L (32.0-36.0) g/dL Plt Count 95 L 90 L (130-400) x1000/uL MPV 12.8 H 12.8 H (8.0-11.0) fL Absolute Lymphocytes 0.74 L 0.51 L (1.2-3.4) k/cumm pO2 (83-108) mmHg VBG pCO2 49 H (34-47) mm/Hg VBG pO2 104 H (28-44) mm/Hg VBG O2 Saturation 98 H (70-80) % Sodium (136-145) mmol/L Chloride (98-107) mmol/L BUN (7-18) mg/dL Creatinine (0.70-1.30) mg/dL Glucose (70-100) mg/dL Calcium (8.5-10.1) mg/dL Total Protein (6.4-8.2) g/dL Albumin (3.4-5.0) g/dL Vital Signs Temperature 36.5 C 09/22/18 23:22 Temperature Source Tympanic 09/22/18 23:22 Pulse 78 09/23/18 08:01 Pulse 100 H 09/23/18 08:01 Respiratory Rate 14 09/23/18 08:01 Respiratory Effort Labored 09/22/18 23:22 Respiratory Depth Retractive 09/22/18 23:22 Respiratory Pattern Normal 09/22/18 23:22 Blood Pressure 108/58 L 09/23/18 08:01 Blood Pressure Mean 69 09/23/18 08:01 Blood Pressure Position Supine 09/22/18 00:02 Pulse Oximetry 94 L 09/23/18 08:01 Oxygen Delivery Method OxyMask 09/22/18 23:22 Oxygen Flow Rate 3 09/22/18 23:04 Pain Level 5 09/22/18 23:22 Comment 09/23/18 04:25 Intake & Output 09/22/18 09/22/18 09/23/18 11:59 23:59 11:59 Intake Total 2341.667 / 6751.667 4410 / 6751.667 600 / 600 Output Total 6500 / 60892 3850 / 49812 1400 / 1400 Balance -4158.333 / -3598.333 560 / -3598.333 -800 / -800 Weight 114.7 kg 114.7 kg Intake: IV 2341.667 / 3311.667 970 / 3311.667 Oral 3440 / 3440 600 / 600 Output: Urine 6500 / 93268 3850 / 98850 1400 / 1400 Other: Urine Color Light Veronica Brown Hartman Bright Red Urine Appearance Sediment Sediment Sediment Comment Marmolejo in place draining lg amts of urine marmolejo in place. draining and patent. has begun draining cloudy yellow urine at this time. Stool Occult Blood Negative Negative Stool Size Small Smear Stool Characteristics Soft Soft Formed Laboratory Results WBC 5.71 k/cumm (4.4-10.8) 09/23/18 06:30 RBC 3.19 m/cumm (4.50-6.00) L 09/23/18 06:30 Hgb 9.2 g/dL (13.5-17.5) L 09/23/18 06:30 Hct 28.9 % (40.0-50.0) L 09/23/18 06:30 MCV 90.6 fL (80-95) 09/23/18 06:30 MCH 28.8 pg (27.0-33.0) 09/23/18 06:30 MCHC 31.8 g/dL (32.0-36.0) L 09/23/18 06:30 RDW 13.5 % (11.8-14.1) 09/23/18 06:30 Plt Count 90 x1000/uL (130-400) L 09/23/18 06:30 MPV 12.8 fL (8.0-11.0) H 09/23/18 06:30 Immature Gran % See Differential 09/23/18 06:30 Neutrophils % 70.0 09/23/18 06:30 Band Neutrophils % 17.0 % 09/23/18 06:30 Lymphocytes % 7.0 09/23/18 06:30 Atypical Lymphs % 2.0 09/23/18 06:30 Monocytes % 2.0 09/23/18 06:30 Eosinophils % 0.0 09/23/18 06:30 Basophils % 1.0 09/23/18 06:30 Metamyelocytes % 1.0 % 09/23/18 06:30 Absolute Neutrophils 4.97 k/cumm (1.2-6.7) 09/23/18 06:30 Absolute Lymphocytes 0.51 k/cumm (1.2-3.4) L 09/23/18 06:30 Absolute Monocytes 0.11 k/cumm (0.11-0.7) 09/23/18 06:30 Absolute Eosinophils 0.00 k/cumm (0.0-0.7) 09/23/18 06:30 Absolute Basophils 0.06 k/cumm (0.0-0.2) 09/23/18 06:30 Differential Comment Manual differential 09/23/18 06:30 RBC Morphology See below 09/23/18 06:30 Polychromasia Present 09/23/18 06:30 Basophilic Stippling Present 09/23/18 01:05 Anisocytosis 1+ 09/23/18 06:30 Sample Site Right radial 09/22/18 13:44 pCO2 35 mmHg (34-47) 09/22/18 13:44 pO2 70 mmHg (83-108) L 09/22/18 13:44 O2 Saturation 94 % (94-98) 09/22/18 13:44 ABG pH 7.45 (7.35-7.45) 09/22/18 13:44 ABG HCO3 24 mmol/L (22-28) 09/22/18 13:44 ABG Total CO2 22 mmol/L (22-29) 09/22/18 13:44 ABG Base Excess 0.2 mmol/L (-3-3) 09/22/18 13:44 VBG pH 7.33 (7.32-7.43) 09/23/18 01:05 VBG pCO2 49 mm/Hg (34-47) H 09/23/18 01:05 VBG pO2 104 mm/Hg (28-44) H 09/23/18 01:05 VBG HCO3 26 mmol/L (22-28) 09/23/18 01:05 VBG Total CO2 25 mmol/L (22-29) 09/23/18 01:05 VBG O2 Saturation 98 % (70-80) H 09/23/18 01:05 VBG Base Excess -0.2 mmol/L (-3-3) 09/23/18 01:05 Oxygen Liter Flow 3 L 09/22/18 13:44 Sodium 133 mmol/L (136-145) L 09/23/18 01:05 Potassium 3.5 mmol/L (3.5-5.1) 09/23/18 01:05 Chloride 96 mmol/L (98-107) L 09/23/18 01:05 Carbon Dioxide 27.3 mmol/L (21.0-32.0) 09/23/18 01:05 Anion Gap 9.7 mmol/L (3-11) 09/23/18 01:05 BUN 56 mg/dL (7-18) H 09/23/18 01:05 Creatinine 2.16 mg/dL (0.70-1.30) H 09/23/18 01:05 Estimated GFR/1.73 m2 30.20 (mL/min/1.73m2) 09/23/18 01:05 Glucose 302 mg/dL (70-100) H D 09/23/18 01:05 Lactate 1.2 mmol/l (0.6-1.4) 09/22/18 09:10 Calcium 7.6 mg/dL (8.5-10.1) L 09/23/18 01:05 Magnesium 1.6 mg/dL (1.8-2.4) L 09/22/18 00:18 Total Bilirubin 0.5 mg/dL (0.2-1.0) 09/23/18 01:05 AST 30 U/L (15-37) 09/23/18 01:05 ALT 19 U/L (12-78) 09/23/18 01:05 Alkaline Phosphatase 58 U/L (46-116) 09/23/18 01:05 Troponin I < 0.02 ng/mL (0.00-0.06) 09/22/18 00:18 Total Protein 5.9 g/dL (6.4-8.2) L 09/23/18 01:05 Albumin 2.7 g/dL (3.4-5.0) L 09/23/18 01:05 Procalcitonin 24.3 ng/mL 09/23/18 06:30 Urine Color Yellow (Yellow) 09/22/18 00:50 Urine Clarity Clear 09/22/18 00:50 Urine pH 5.5 (5-8) 09/22/18 00:50 Ur Specific [place] 1.010 (1.005-1.025) 09/22/18 00:50 Urine Protein Negative mg/dL (Negative) 09/22/18 00:50 Urine Ketones Negative mg/dL (Negative) 09/22/18 00:50 Urine Blood Negative (Negative) 09/22/18 00:50 Urine Nitrite Negative (Negative) 09/22/18 00:50 Urine Bilirubin Negative (Negative) 09/22/18 00:50 Urine Urobilinogen 0.2 EU/dL (Up TO 0.2) 09/22/18 00:50 Ur Leukocyte Esterase Trace (Negative) H 09/22/18 00:50 Urine RBC 0-2 (0-2) 09/22/18 00:50 Urine WBC 5-10 HPF (0-5) 09/22/18 00:50 Ur Epithelial Cells Rare HPF (Negative) 09/22/18 00:50 Urine Crystals Negative HPF (Negative) 09/22/18 00:50 Urine Bacteria Many HPF (Negative) 09/22/18 00:50 Urine Casts Negative LPF (Negative) 09/22/18 00:50 Urine Mucus Negative (Negative) 09/22/18 00:50 Ur Culture Indicated? Yes 09/22/18 00:50 Urine Glucose 500 mg/dL (Negative) H 09/22/18 00:50 KUB 09/23/18: 1. Gaseous distention of the stomach which could represent gastric outlet obstruction. No evidence for small bowel obstruction is seen. 2. No free intraperitoneal air. 3. Hypoventilated lungs. 4. Cardiomegaly.
--- NOTE | 2018-09-23 08:16 | CMPROGNOTE_ITS ---
- If Service Date Differs Date of service: 09/23/18 Time of Service: 07:51 Care Management Progress Note S/O:Parviz was sitting up in a chair visiting with his Sommer when CM came to see him. Me appeared much more awake today and was able to answer many questions that eluded him yesterday. He was able to tell me that he has 3 children (not 5 like he thought yesterday) and several grandchildren. 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 Parviz and his describe varying challenges with ambulation at home. He owns a walker, a wheelchair and a cane and uses all of them at different times. Sommer relayed that he uses them frequently but Parviz insisted it was only once in a while. They do have a ramp to outdoor stairs at home. Sommer also revealed that Parviz has [employer] and has a geriatric case manager out of the [place] office. A: Parviz is a 73 year old man admitted to [facility] on 09/21/18 with a diagnosis of UTI P:Parviz remains ICU level of care today. he is receiving IV fluids and IV fluids. Parviz will likely be discharged home with services when ready. CM will continue to provide support to patient, family and the discharge planning process.
[2018-09-23] MEDS: Docusate Sodium 100 MG CAP PO ×2 (08:34→21:03)
[2018-09-23] MEDS: DULoxetine 30 MG CAP 60 MG PO (08:35)
[2018-09-23] MEDS: Aspirin 81 MG CHEW PO (08:35)
[2018-09-23] MEDS: Senna TAB 1 TAB PO ×2 (08:35→21:06)
[2018-09-23] MEDS: Tamsulosin 0.4 MG CAPCR PO (08:35)
[2018-09-23] MEDS: Furosemide 20 MG TAB PO (08:35)
[2018-09-23] MEDS: Omeprazole 20 MG CAPCR PO (08:35)
[2018-09-23] MEDS: Pregabalin 100 MG CAP PO ×3 (08:35→21:03)
[2018-09-23 08:43] LABS: Anion Gap 12.8 mmol/L (3-11); BUN 59 mg/dL (7-18); CO2 25.2 mmol/L (21.0-32.0); CREATININE 2.05 mg/dL (0.70-1.30); Calcium 7.8 mg/dL (8.5-10.1); Chloride 98 mmol/L (98-107); Estimated GFR 32.08 (mL/min/1.73m2); Glucose 263 mg/dL (70-100); Magnesium 2.1 mg/dL (1.8-2.4); Potassium 3.5 mmol/L (3.5-5.1); Sodium 136 mmol/L (136-145)
[2018-09-23] MEDS: DEXTROSE 5%-LACTATED RINGERS 1,000 ML 100 ML IV ×2 (09:52→22:31)
--- NOTE | 2018-09-23 10:59 | W.SURGCON ---
Date of service: 09/23/18 Time of Service: 10:59 Assessment and Plan (1) Gastric distention: Current visit: Yes Status: Acute A\\ Gastric distention without signs of bowel obstruction or ileus. Patient has been eating without N/V. He is having BM's and passing flatus ? Gastroparesis with his history of DM. P\\ NG tube would be helpful to decompress but patient pulled it out and now refuses to have another one placed Recommend trying some Reglan No surgical intervention needed at this time. We abraham see him again tomorrow and see how things are after he has a few doses of reglan If he has an adverse reaction to reglan then could try erythromycin History of Present Illness Chief Complaint: Abdominal pain Narrative: Mr. Pearson is a 73 year old admitted by the hospitalist for a UTI, dehydration and confusion. EMS summoned and reportedly noted fever. IN ER findings of note for temp 38.1, BP varying between 80s and 114/systolic; urinary retention (2liter), pyuria and YAZAN (Cr 3.5). Cultures obtained, patient given 2 l IVF and one gram Rocephin. Admitted for further management. Patient does admit that lower abdomen has been somewhat uncomfortable but unable to get much in way of detail. indicates that this has not been an ongoing issue. he had a CT scan done which showed: 1. The colon is distended with gas and fluid. There may be 2 separate areas of stricture at the proximal and distal transverse colon. While these may represent benign strictures, the possibility of malignancy cannot be excluded. No evidence of small bowel obstruction. 2. Soft tissue stranding seen within the right hemiabdomen adjacent to the colon. Inflammatory process colitis cannot be excluded. 3. There is moderate constipation. He has been having BM's and passing gas. He continues to complain of abdominal pain the RLQ. Apparently complained of increased pain and so a KUB was done which showed marked distention of the stomach. No dilatation of small or large bowel to suggest ileus. Patient the pain is there constantly. He looks fine but rates the pain at 10/10. He is on chronic pain medications as home. He also has a history of Diabetes with peripheral neuropathy and urinary retention. Review of Systems Constitutional Reports as per HPI Eyes Denies change in vision ENT Denies change in voice Cardiovascular Denies chest pain, Denies chest pain at rest, Denies irregular heart rhythm, Denies palpitations and Denies dyspnea Respiratory Denies cough and Denies dyspnea Gastrointestinal Reports as per [facility] Genitourinary Reports system reviewed and no additional complaints, except as docu Psychiatric Reports system reviewed and no additional complaints, except [facility] Endocrine Denies palpitations [facility] Medical History Thrombocytopenia (Chronic 07/27/15) Rupture of left long head biceps tendon (Chronic 05/03/17) Retention of urine (Chronic 11/08/12) Peripheral neuralgia (Chronic) Pain of left thumb (Chronic 07/27/15) Mass of skin of right elbow (Chronic 06/28/16) Low back pain (Chronic 12/24/12) Left groin hernia (Chronic 04/30/15) Hyperlipidemia (Chronic) Hematuria (Chronic 08/12/16) Gait abnormality (Chronic) Dysphagia (Chronic) Dizziness (Chronic) 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 Exam Const General: cooperative and no acute distress Orientation: alert [facility] Head: normocephalic and atraumatic Resp Effort & Inspection: normal respiratory effort Auscultation: clear to auscultation bilaterally and diminished lung sounds bilaterally in the lower lung lizarraga Cardio Rate: regular rate Rhythm: regular rhythm GI Inspection: normal to inspection and distended Palpation: soft and tender in the RLQ (without rebound or guarding) Auscultation: normal bowel sounds Results Last Vital Signs Temp 99.3 F 09/23/18 09:22 Pulse 158 H 09/23/18 09:01 Resp 22 09/23/18 09:01 BP 99/68 L 09/23/18 09:01 Pulse Ox 94 L 09/23/18 09:01 Labs : 09/23/18 06:30 09/23/18 05:35 Laboratory Results - last 24 hr 09/22/18 09/22/18 09/23/18 13:44 22:42 01:05 WBC RBC Hgb 9.9 L Hct 30.8 L MCV MCH MCHC RDW Plt Count MPV Immature Gran % Neutrophils % Band Neutrophils % Lymphocytes % Atypical Lymphs % Monocytes % Eosinophils % Basophils % Metamyelocytes % Absolute Neutrophils Absolute Lymphocytes Absolute Monocytes Absolute Eosinophils Absolute Basophils Differential Comment RBC Morphology Polychromasia Basophilic Stippling Anisocytosis Sample Site Right radial pCO2 35 pO2 70 L O2 Saturation 94 ABG pH 7.45 ABG HCO3 24 ABG Total CO2 22 ABG Base Excess 0.2 VBG pH VBG pCO2 VBG pO2 VBG HCO3 VBG Total CO2 VBG O2 Saturation VBG Base Excess Oxygen Liter Flow 3 Sodium 133 L Potassium 3.5 Chloride 96 L Carbon Dioxide 27.3 Anion Gap 9.7 BUN 56 H Creatinine 2.16 H Estimated GFR/1.73 m2 30.20 Glucose 302 H D Calcium 7.6 L Magnesium Total Bilirubin 0.5 AST 30 ALT 19 Alkaline Phosphatase 58 Total Protein 5.9 L Albumin 2.7 L Procalcitonin 09/23/18 09/23/18 09/23/18 01:05 01:05 05:35 WBC 7.41 D RBC 3.33 L Hgb 9.7 L Hct 30.1 L MCV 90.4 MCH 29.1 MCHC 32.2 RDW 13.7 Plt Count 95 L MPV 12.8 H Immature Gran % 0.0 Neutrophils % 62.0 Band Neutrophils % 25.0 Lymphocytes % 10.0 Atypical Lymphs % Monocytes % 3.0 Eosinophils % 0.0 Basophils % 0.0 Metamyelocytes % Absolute Neutrophils 6.45 Absolute Lymphocytes 0.74 L Absolute Monocytes 0.22 Absolute Eosinophils 0.00 Absolute Basophils 0.00 Differential Comment Manual differential RBC Morphology Polychromasia Basophilic Stippling Present Anisocytosis Sample Site pCO2 pO2 O2 Saturation ABG pH ABG HCO3 ABG Total CO2 ABG Base Excess VBG pH 7.33 VBG pCO2 49 H VBG pO2 104 H VBG HCO3 26 VBG Total CO2 25 VBG O2 Saturation 98 H VBG Base Excess -0.2 Oxygen Liter Flow Sodium 136 Potassium 3.5 Chloride 98 Carbon Dioxide 25.2 Anion Gap 12.8 H BUN 59 H Creatinine 2.05 H Estimated GFR/1.73 m2 32.08 Glucose 263 H Calcium 7.8 L Magnesium 2.1 Total Bilirubin AST ALT Alkaline Phosphatase Total Protein Albumin Procalcitonin 09/23/18 09/23/18 06:30 06:30 WBC 5.71 RBC 3.19 L Hgb 9.2 L Hct 28.9 L MCV 90.6 MCH 28.8 MCHC 31.8 L RDW 13.5 Plt Count 90 L MPV 12.8 H Immature Gran % See Differential Neutrophils % 70.0 Band Neutrophils % 17.0 Lymphocytes % 7.0 Atypical Lymphs % 2.0 Monocytes % 2.0 Eosinophils % 0.0 Basophils % 1.0 Metamyelocytes % 1.0 Absolute Neutrophils 4.97 Absolute Lymphocytes 0.51 L Absolute Monocytes 0.11 Absolute Eosinophils 0.00 Absolute Basophils 0.06 Differential Comment Manual differential RBC Morphology See below Polychromasia Present Basophilic Stippling Anisocytosis 1+ Sample Site pCO2 pO2 O2 Saturation ABG pH ABG HCO3 ABG Total CO2 ABG Base Excess VBG pH VBG pCO2 VBG pO2 VBG HCO3 VBG Total CO2 VBG O2 Saturation VBG Base Excess Oxygen Liter Flow Sodium Potassium Chloride Carbon Dioxide Anion Gap BUN Creatinine Estimated GFR/1.73 m2 Glucose Calcium Magnesium Total Bilirubin AST ALT Alkaline Phosphatase Total Protein Albumin Procalcitonin 24.3
[2018-09-23] MEDS: VANCOMYCIN 2,000 MG in Normal Saline 500 ML 250 MG IVPB (11:41)
[2018-09-23] MEDS: Metoclopramide 10 MG/2 ML VIAL 5 MG IVP ×2 (11:41→17:34)
[2018-09-23] MEDS: Albuterol/Ipratropium 3 ML UPD VIAL UPD (13:15)
[2018-09-23] MEDS: oxyCODONE-CR 10 MG TABCR 30 MG PO ×2 (14:13→20:58)
[2018-09-23] MEDS: Nystatin POWDER 60 GM JAR TP ×2 (14:14→21:39)
[2018-09-23] MEDS: Pantoprazole 40 MG VIAL IVP ×2 (17:34→21:01)
[2018-09-23] MEDS: Normal Saline Flush 10 ML SYR IVP (17:34)
[2018-09-23 22:08] LABS: HCT 26.9 % (40.0-50.0); HGB 8.6 g/dL (13.5-17.5)
[2018-09-24] VITALS (56 sets, daily range): BP systolic 73–162; BP diastolic 49–123; PULSE 67–98; RESP 4–23; TEMP 36.8–37.2; O2SAT 81–99
[2018-09-24] MEDS: PIPERACILLIN/TAZO 3.375 GM in Normal Saline 50 ML IVPB ×4 (00:10→18:43)
[2018-09-24] MEDS: VANCOMYCIN 1,000 MG in Normal Saline 250 ML 166.6666 MG IVPB (04:26)
[2018-09-24] MEDS: Metoclopramide 10 MG/2 ML VIAL 5 MG IVP ×4 (06:18→18:43)
[2018-09-24 07:05] LABS: Abs Immature Grans 0.02 k/cumm (0.0-0.09); Absolute Basophil Count 0.01 k/cumm (0.0-0.2); Absolute Eosinophil Count 0.46 k/cumm (0.0-0.7); Absolute Lymphocyte Count 0.69 k/cumm (1.2-3.4); Absolute Monocyte Count 0.37 k/cumm (0.11-0.7); Absolute Neutrophil Count 5.18 k/cumm (1.2-6.7); Basophils % 0.1; Eosinophils % 6.8; HCT 29.7 % (40.0-50.0); HGB 9.2 g/dL (13.5-17.5); Immature Grans % 0.3; Lymphocytes % 10.3; Mean Corpuscular Volume 90.5 fL (80-95); Mean Platelet Volume 12.4 fL (8.0-11.0); Monocytes % 5.5; RBC 3.28 m/cumm (4.50-6.00); RBC Distribution Width 13.6 % (11.8-14.1); White Blood Cell Count 6.73 k/cumm (4.4-10.8)
[2018-09-24] MEDS: Albuterol/Ipratropium 3 ML UPD VIAL UPD (07:22)
[2018-09-24 07:25] LABS: Anion Gap 7.5 mmol/L (3-11); BUN 41 mg/dL (7-18); CO2 29.5 mmol/L (21.0-32.0); CREATININE 1.69 mg/dL (0.70-1.30); Calcium 8.3 mg/dL (8.5-10.1); Chloride 100 mmol/L (98-107); Estimated GFR 40.09 (mL/min/1.73m2); Glucose 202 mg/dL (70-100); Magnesium 2.4 mg/dL (1.8-2.4); Sodium 137 mmol/L (136-145)
[2018-09-24 07:54] LABS: Procalcitonin 13.2 ng/mL
[2018-09-24 07:58] LABS: Platelet Count 95 x1000/uL (130-400)
[2018-09-24 07:59] LABS: Diff Comment PLT Morph Reviewed; RBC Morphology Normal
--- NOTE | 2018-09-24 08:26 | W.PM.PROGNOT ---
Date of Service Date of service: 09/24/18 Time of Service: 08:26 Assessment and Plan (1) Sepsis associated hypotension: Current visit: Yes Status: Acute Due to UTI, POA. C&S is not growing any organisms, but UA is consistent with a UTI and clinically the patient does have it, in addition to presence of perinephric stranding on CT. Blood cultures: NGTD. He is significantly better today. Procalcitonin is also better. Continue vancomycin/zosyn (day 2); s/p 1 day of IV rocephin. As mental status is so much better today, ok to transfer to [facility] with continuous pulse ox. (2) UTI (urinary tract infection): Current visit: Yes Status: Acute As above (3) Toxic metabolic encephalopathy: Current visit: Yes Status: Acute Improved/resolving. Due to above. I now see that he, in fact, had a negative CT of the head on admission.Await results of Lyme/tick panel (does have a dog). (4) Urinary retention: Current visit: Yes Status: Acute s/p marmolejo - as above (5) Gastric distention: Current visit: Yes Status: Acute Likely due to gastroparesis. On IV reglan - tolerating clears. Will advance diet. (6) Hematuria: Current visit: Yes Status: Resolved Due to patient pulling on marmolejo - monitor behaviors (7) Shortness of breath: Current visit: No Status: Chronic Denies these symptoms today, but noctural hypoxia is very concerning. I explained to the patient why he would need a sleep study as outpatient. He agrees to trial a BiPAP tonight. Will monitor on continuous pulse ox. I doubt an infectious pulmonary process. (8) Hypoxia: Current visit: Yes Status: Acute As above. Repeating CXR. (9) Diabetes mellitus with neuropathy: Current visit: No Status: Chronic Adjust long acting insulin (10) Colonic stricture: Current visit: Yes Status: Acute Discussed with general surgery - as the patient is clearly not obstructed, he will require an outpatient colonoscopy to ensure that there is no malignancy. (11) YAZAN (acute kidney injury): Current visit: Yes Status: Acute Likely post-renal/obstructive in addition to being due to sepsis. Continue marmolejo and treat infection. Improving. Continue flomax. (12) Thrombocytopenia: Current visit: Yes Status: Chronic Acute on chronic, likely at least partially due to sepsis. No evidence of schistocytes - doubt TTP/HUS. Hold off on heparin. Check B12 level. (13) Discharge planning issues: Current visit: Yes Status: Acute Full code. Transfer to [facility] surg floor with continuous pulse ox (14) DVT prophylaxis: Current visit: Yes Status: Acute TEDS + SCD's (chemical ppx on hold due to thrombocytopenia and reports of hemoccult positive stool). Subjective Interval history since last seen: O2 sat goes down to 40's when sleeping/apneic. Pattern c/w LEONARD, per nursing. When he wakes up/starts to breathe, his O2 sat goes up to 90's. He is on 3L of O2. No rectal bleeding observed; only hemoccult positive BM was yesterday afternoon. Mental status when awake is still not baseline, but better than when he he was febrile. Last fever recorded at 2 pm on 09/22/18. The patient's thinks his mental status is almost at his baseline. Patient denies dizziness, chest pain, shortness of breath, abdominal pain, nausea, vomiting. He states he has not had a BM or passed flatus today. He would like to have his diet advanced. He was initially resistant to the idea of trying BiPAP tonight, but now agrees. Exam Narrative Exam Narrative: General: Middle-aged Obese male, A&Ox3, sitting up in bed, having a complex conversation with me, calm, cooperative, not pulling, looks significantly better than yesterday HEENT: EOMI, MMM Heart: RRR, occasional extra beat, no m/r/g Lungs: CTAB GI: abdomen is soft, distended, nontender at all levels of palpation, + BS Extremities: no edema BLE's, R hand with contracted fingers. Objective Objective Clinical Data: Abnormal lab results 09/23/18 09/23/18 09/24/18 Range/Units 05:35 22:00 06:20 RBC (4.50-6.00) m/cumm Hgb 8.6 L (13.5-17.5) g/dL Hct 26.9 L (40.0-50.0) % MCHC (32.0-36.0) g/dL Plt Count (130-400) x1000/uL MPV (8.0-11.0) fL Absolute Lymphocytes (1.2-3.4) k/cumm Potassium 3.0 L (3.5-5.1) mmol/L Anion Gap 12.8 H (3-11) mmol/L BUN 59 H 41 H D (7-18) mg/dL Creatinine 2.05 H 1.69 H (0.70-1.30) mg/dL Glucose 263 H 202 H (70-100) mg/dL Calcium 7.8 L 8.3 L (8.5-10.1) mg/dL 09/24/18 Range/Units 06:20 RBC 3.28 L (4.50-6.00) m/cumm Hgb 9.2 L (13.5-17.5) g/dL Hct 29.7 L (40.0-50.0) % MCHC 31.0 L (32.0-36.0) g/dL Plt Count 95 L (130-400) x1000/uL MPV 12.4 H (8.0-11.0) fL Absolute Lymphocytes 0.69 L (1.2-3.4) k/cumm Potassium (3.5-5.1) mmol/L Anion Gap (3-11) mmol/L BUN (7-18) mg/dL Creatinine (0.70-1.30) mg/dL Glucose (70-100) mg/dL Calcium (8.5-10.1) mg/dL Vital Signs Temperature 37 C 09/24/18 03:48 Temperature Source Temporal Artery Scan 09/24/18 03:48 Pulse 98 H 09/24/18 05:00 Pulse 94 H 09/24/18 06:00 Respiratory Rate 21 09/24/18 06:00 Respiratory Effort Incrsd Work of Breathing 09/24/18 03:48 Respiratory Depth Normal 09/24/18 03:48 Respiratory Pattern Normal 09/24/18 03:48 Blood Pressure 122/56 L 09/24/18 05:00 Blood Pressure Mean 64 09/24/18 05:00 Blood Pressure Position Supine 09/24/18 03:48 Pulse Oximetry 93 L 09/24/18 07:22 Oxygen Delivery Method Nasal Cannula 09/24/18 07:22 Oxygen Flow Rate 3 09/24/18 07:22 Pain Level 0 09/23/18 23:39 Comment 09/23/18 04:25 Intake & Output 09/23/18 09/23/18 09/24/18 11:59 23:59 11:59 Intake Total 3325 / 5105.000 1780.000 / 5105.000 1223.333 / 1223.333 Output Total 2875 / 4775 1900 / 4775 1600 / 1600 Balance 450 / 330.000 -120.000 / 330.000 -376.667 / -376.667 Weight 114.7 kg Intake: IV 1045 / 2645.000 1600.000 / 2645.000 1223.333 / 1223.333 Oral 2280 / 2460 180 / 2460 Output: Urine 2875 / 4675 1800 / 4675 1600 / 1600 Stool 100 / 100 Other: Urine Color Hartman Light Veronica Light Veronica Urine Appearance Sediment Clear Clear Urine Odor None Comment Hematuria. pt has indwelling marmolejo catheter pt has indwelling marmolejo catheter Stool Occult Blood Negative Positive Stool Size Small Stool Characteristics Liquid Liquid Voiding Methods Indwelling Catheter Indwelling Catheter Laboratory Results WBC 6.73 k/cumm (4.4-10.8) 09/24/18 06:20 RBC 3.28 m/cumm (4.50-6.00) L 09/24/18 06:20 Hgb 9.2 g/dL (13.5-17.5) L 09/24/18 06:20 Hct 29.7 % (40.0-50.0) L 09/24/18 06:20 MCV 90.5 fL (80-95) 09/24/18 06:20 MCH 28.0 pg (27.0-33.0) 09/24/18 06:20 MCHC 31.0 g/dL (32.0-36.0) L 09/24/18 06:20 RDW 13.6 % (11.8-14.1) 09/24/18 06:20 Plt Count 95 x1000/uL (130-400) L 09/24/18 06:20 MPV 12.4 fL (8.0-11.0) H 09/24/18 06:20 Immature Gran % 0.3 09/24/18 06:20 Neutrophils % 77.0 09/24/18 06:20 Band Neutrophils % 17.0 % 09/23/18 06:30 Lymphocytes % 10.3 09/24/18 06:20 Atypical Lymphs % 2.0 09/23/18 06:30 Monocytes % 5.5 09/24/18 06:20 Eosinophils % 6.8 09/24/18 06:20 Basophils % 0.1 09/24/18 06:20 Metamyelocytes % 1.0 % 09/23/18 06:30 Absolute Neutrophils 5.18 k/cumm (1.2-6.7) 09/24/18 06:20 Absolute Lymphocytes 0.69 k/cumm (1.2-3.4) L 09/24/18 06:20 Absolute Monocytes 0.37 k/cumm (0.11-0.7) 09/24/18 06:20 Absolute Eosinophils 0.46 k/cumm (0.0-0.7) 09/24/18 06:20 Absolute Basophils 0.01 k/cumm (0.0-0.2) 09/24/18 06:20 Differential Comment Plt morph reviewed 09/24/18 06:20 RBC Morphology Normal 09/24/18 06:20 Polychromasia Present 09/23/18 06:30 Basophilic Stippling Present 09/23/18 01:05 Anisocytosis 1+ 09/23/18 06:30 Sample Site Right radial 09/22/18 13:44 pCO2 35 mmHg (34-47) 09/22/18 13:44 pO2 70 mmHg (83-108) L 09/22/18 13:44 O2 Saturation 94 % (94-98) 09/22/18 13:44 ABG pH 7.45 (7.35-7.45) 09/22/18 13:44 ABG HCO3 24 mmol/L (22-28) 09/22/18 13:44 ABG Total CO2 22 mmol/L (22-29) 09/22/18 13:44 ABG Base Excess 0.2 mmol/L (-3-3) 09/22/18 13:44 VBG pH 7.33 (7.32-7.43) 09/23/18 01:05 VBG pCO2 49 mm/Hg (34-47) H 09/23/18 01:05 VBG pO2 104 mm/Hg (28-44) H 09/23/18 01:05 VBG HCO3 26 mmol/L (22-28) 09/23/18 01:05 VBG Total CO2 25 mmol/L (22-29) 09/23/18 01:05 VBG O2 Saturation 98 % (70-80) H 09/23/18 01:05 VBG Base Excess -0.2 mmol/L (-3-3) 09/23/18 01:05 Oxygen Liter Flow 3 L 09/22/18 13:44 Sodium 137 mmol/L (136-145) 09/24/18 06:20 Potassium 3.0 mmol/L (3.5-5.1) L 09/24/18 06:20 Chloride 100 mmol/L (98-107) 09/24/18 06:20 Carbon Dioxide 29.5 mmol/L (21.0-32.0) 09/24/18 06:20 Anion Gap 7.5 mmol/L (3-11) 09/24/18 06:20 BUN 41 mg/dL (7-18) H D 09/24/18 06:20 Creatinine 1.69 mg/dL (0.70-1.30) H 09/24/18 06:20 Estimated GFR/1.73 m2 40.09 (mL/min/1.73m2) 09/24/18 06:20 Glucose 202 mg/dL (70-100) H 09/24/18 06:20 Lactate 1.2 mmol/l (0.6-1.4) 09/22/18 09:10 Calcium 8.3 mg/dL (8.5-10.1) L 09/24/18 06:20 Magnesium 2.4 mg/dL (1.8-2.4) 09/24/18 06:20 Total Bilirubin 0.5 mg/dL (0.2-1.0) 09/23/18 01:05 AST 30 U/L (15-37) 09/23/18 01:05 ALT 19 U/L (12-78) 09/23/18 01:05 Alkaline Phosphatase 58 U/L (46-116) 09/23/18 01:05 Troponin I < 0.02 ng/mL (0.00-0.06) 09/22/18 00:18 Total Protein 5.9 g/dL (6.4-8.2) L 09/23/18 01:05 Albumin 2.7 g/dL (3.4-5.0) L 09/23/18 01:05 Procalcitonin 13.2 ng/mL 09/24/18 06:20 Urine Color Yellow (Yellow) 09/22/18 00:50 Urine Clarity Clear 09/22/18 00:50 Urine pH 5.5 (5-8) 09/22/18 00:50 Ur Specific [place] 1.010 (1.005-1.025) 09/22/18 00:50 Urine Protein Negative mg/dL (Negative) 09/22/18 00:50 Urine Ketones Negative mg/dL (Negative) 09/22/18 00:50 Urine Blood Negative (Negative) 09/22/18 00:50 Urine Nitrite Negative (Negative) 09/22/18 00:50 Urine Bilirubin Negative (Negative) 09/22/18 00:50 Urine Urobilinogen 0.2 EU/dL (Up TO 0.2) 09/22/18 00:50 Ur Leukocyte Esterase Trace (Negative) H 09/22/18 00:50 Urine RBC 0-2 (0-2) 09/22/18 00:50 Urine WBC 5-10 HPF (0-5) 09/22/18 00:50 Ur Epithelial Cells Rare HPF (Negative) 09/22/18 00:50 Urine Crystals Negative HPF (Negative) 09/22/18 00:50 Urine Bacteria Many HPF (Negative) 09/22/18 00:50 Urine Casts Negative LPF (Negative) 09/22/18 00:50 Urine Mucus Negative (Negative) 09/22/18 00:50 Ur Culture Indicated? Yes 09/22/18 00:50 Urine Glucose 500 mg/dL (Negative) H 09/22/18 00:50
[2018-09-24] MEDS: Normal Saline Flush 10 ML SYR IVP ×2 (09:03→20:49)
[2018-09-24] MEDS: Pantoprazole 40 MG VIAL IVP ×2 (09:03→20:49)
[2018-09-24] MEDS: Pregabalin 100 MG CAP PO ×3 (09:05→20:47)
[2018-09-24] MEDS: Docusate Sodium 100 MG CAP PO ×2 (09:05→20:49)
[2018-09-24] MEDS: oxyCODONE-CR 10 MG TABCR 30 MG PO ×3 (09:05→20:47)
[2018-09-24] MEDS: Furosemide 20 MG TAB PO (09:05)
[2018-09-24] MEDS: Tamsulosin 0.4 MG CAPCR PO (09:06)
[2018-09-24] MEDS: Senna TAB 1 TAB PO ×2 (09:06→20:50)
[2018-09-24] MEDS: Potassium Chloride 20 MEQ TABCR 40 MEQ PO ×2 (09:06→20:49)
[2018-09-24] MEDS: Omeprazole 20 MG CAPCR PO (09:06)
[2018-09-24] MEDS: Insulin Glargine 300 UNITS/3 ML PEN 12 UNITS SC (09:07)
[2018-09-24] MEDS: Insulin Aspart 300 UNITS/3 ML PEN SC ×3 (09:07→16:58)
--- NOTE | 2018-09-24 09:07 | PGE_ITS ---
Date of Service Date of service: 09/24/18 Time of Service: 09:07 Assessment and Plan (1) Gastric distention: Current visit: Yes Status: Acute echo is pd today hgb has been stable pt was stooling very heavily all night- very liquid (unknown if he received any cathartics). One stool was heme+ There was no gross blood. He does not seem to have any abdominal pain at all today Uncertain of focus of fevers/sepsis. Urine cultures were all neg pt does need egd and ce in future. However, I don't feel he is medically optimized at this point D/w Dr. Xiong. Don't feel belly is etiology of the sepsis- will follow periphery and see how he progresses. (2) Colitis: Current visit: Yes Status: Acute (3) Acute distention of stomach: Current visit: Yes Status: Acute (4) Hypoxia: Current visit: Yes Status: Acute (5) Colonic stricture: Current visit: Yes Status: Acute (6) Urinary retention: Current visit: Yes Status: Acute (7) UTI (urinary tract infection): Current visit: Yes Status: Acute (8) Anemia: Current visit: Yes Status: Acute (9) Smoker: Current visit: Yes Status: Acute Subjective Interval history since last seen: reviewed the case w/ RN and w/ Dr. Xiong. Pt has had a lg amount stools. He had one out of many that was heme+. no n/v. still low grade temp. Unclear etiology of infections- looked urinary on CT, but cultures were sterile. Per RN- pt not running a temp this am. Pt was up most of night and sleeping now very soundly currently. He didn't even arouse when I was in the room. Pt obviously has sleep apnea from observing him sleep. Exam Const General: no acute distress and disheveled Nutritional Appearance: average body habitus and well nourished [facility] Head: normocephalic Face and sinus: other (micronathia ) Mouth: oral mucosae normal, lip normal, tongue normal and moist mucous membranes Teeth and gingiva: poor dentition Neck Neck: normal visual inspection and full ROM Chest Chest: normal inspection of the chest Resp Effort & Inspection: normal respiratory effort, able to speak in complete sentences, no cough, no nasal flaring, not tachypneic and no use of accessory muscles Auscultation: clear to auscultation bilaterally, no rales, no rhonchi and no wheezes Cardio Jugular venous pressure: no JVD Rate: regular rate Rhythm: regular rhythm GI Inspection: normal to inspection, no edema and distended Palpation: soft, no masses, nontender and No ascites Auscultation: normal bowel sounds Other: quite protuberant- unclear how much is nl stomach vs dilated stomach. no peritonitis. + BS Skin Other: excoriations on legs Extrem General: no clubbing, cyanosis or edema Psych Appearance: disheveled Objective Objective Clinical Data: Abnormal lab results 09/23/18 09/24/18 09/24/18 Range/Units 22:00 06:20 06:20 RBC 3.28 L (4.50-6.00) m/cumm Hgb 8.6 L 9.2 L (13.5-17.5) g/dL Hct 26.9 L 29.7 L (40.0-50.0) % MCHC 31.0 L (32.0-36.0) g/dL Plt Count 95 L (130-400) x1000/uL MPV 12.4 H (8.0-11.0) fL Absolute Lymphocytes 0.69 L (1.2-3.4) k/cumm Potassium 3.0 L (3.5-5.1) mmol/L BUN 41 H D (7-18) mg/dL Creatinine 1.69 H (0.70-1.30) mg/dL Glucose 202 H (70-100) mg/dL Calcium 8.3 L (8.5-10.1) mg/dL Vital Signs Temperature 37 C 09/24/18 03:48 Temperature Source Temporal Artery Scan 09/24/18 03:48 Pulse 98 H 09/24/18 05:00 Pulse 94 H 09/24/18 06:00 Respiratory Rate 21 09/24/18 06:00 Respiratory Effort Incrsd Work of Breathing 09/24/18 03:48 Respiratory Depth Normal 09/24/18 03:48 Respiratory Pattern Normal 09/24/18 03:48 Blood Pressure 122/56 L 09/24/18 05:00 Blood Pressure Mean 64 09/24/18 05:00 Blood Pressure Position Supine 09/24/18 03:48 Pulse Oximetry 93 L 09/24/18 07:22 Oxygen Delivery Method Nasal Cannula 09/24/18 07:22 Oxygen Flow Rate 3 09/24/18 07:22 Pain Level 0 09/23/18 23:39 Comment 09/23/18 04:25 Intake & Output 09/23/18 09/23/18 09/24/18 11:59 23:59 11:59 Intake Total 3325 / 5105.000 1780.000 / 5105.000 1223.333 / 1223.333 Output Total 2875 / 4775 1900 / 4775 1600 / 1600 Balance 450 / 330.000 -120.000 / 330.000 -376.667 / -376.667 Weight 114.7 kg Intake: IV 1045 / 2645.000 1600.000 / 2645.000 1223.333 / 1223.333 Oral 2280 / 2460 180 / 2460 Output: Urine 2875 / 4675 1800 / 4675 1600 / 1600 Stool 100 / 100 Other: Urine Color Hartman Light Veronica Light Veronica Urine Appearance Sediment Clear Clear Urine Odor None Comment Hematuria. pt has indwelling marmolejo catheter pt has indwelling marmolejo catheter Stool Occult Blood Negative Positive Stool Size Small Stool Characteristics Liquid Liquid Voiding Methods Indwelling Catheter Indwelling Catheter Laboratory Results WBC 6.73 k/cumm (4.4-10.8) 09/24/18 06:20 RBC 3.28 m/cumm (4.50-6.00) L 09/24/18 06:20 Hgb 9.2 g/dL (13.5-17.5) L 09/24/18 06:20 Hct 29.7 % (40.0-50.0) L 09/24/18 06:20 MCV 90.5 fL (80-95) 09/24/18 06:20 MCH 28.0 pg (27.0-33.0) 09/24/18 06:20 MCHC 31.0 g/dL (32.0-36.0) L 09/24/18 06:20 RDW 13.6 % (11.8-14.1) 09/24/18 06:20 Plt Count 95 x1000/uL (130-400) L 09/24/18 06:20 MPV 12.4 fL (8.0-11.0) H 09/24/18 06:20 Immature Gran % 0.3 09/24/18 06:20 Neutrophils % 77.0 09/24/18 06:20 Band Neutrophils % 17.0 % 09/23/18 06:30 Lymphocytes % 10.3 09/24/18 06:20 Atypical Lymphs % 2.0 09/23/18 06:30 Monocytes % 5.5 09/24/18 06:20 Eosinophils % 6.8 09/24/18 06:20 Basophils % 0.1 09/24/18 06:20 Metamyelocytes % 1.0 % 09/23/18 06:30 Absolute Neutrophils 5.18 k/cumm (1.2-6.7) 09/24/18 06:20 Absolute Lymphocytes 0.69 k/cumm (1.2-3.4) L 09/24/18 06:20 Absolute Monocytes 0.37 k/cumm (0.11-0.7) 09/24/18 06:20 Absolute Eosinophils 0.46 k/cumm (0.0-0.7) 09/24/18 06:20 Absolute Basophils 0.01 k/cumm (0.0-0.2) 09/24/18 06:20 Differential Comment Plt morph reviewed 09/24/18 06:20 RBC Morphology Normal 09/24/18 06:20 Polychromasia Present 09/23/18 06:30 Basophilic Stippling Present 09/23/18 01:05 Anisocytosis 1+ 09/23/18 06:30 Sample Site Right radial 09/22/18 13:44 pCO2 35 mmHg (34-47) 09/22/18 13:44 pO2 70 mmHg (83-108) L 09/22/18 13:44 O2 Saturation 94 % (94-98) 09/22/18 13:44 ABG pH 7.45 (7.35-7.45) 09/22/18 13:44 ABG HCO3 24 mmol/L (22-28) 09/22/18 13:44 ABG Total CO2 22 mmol/L (22-29) 09/22/18 13:44 ABG Base Excess 0.2 mmol/L (-3-3) 09/22/18 13:44 VBG pH 7.33 (7.32-7.43) 09/23/18 01:05 VBG pCO2 49 mm/Hg (34-47) H 09/23/18 01:05 VBG pO2 104 mm/Hg (28-44) H 09/23/18 01:05 VBG HCO3 26 mmol/L (22-28) 09/23/18 01:05 VBG Total CO2 25 mmol/L (22-29) 09/23/18 01:05 VBG O2 Saturation 98 % (70-80) H 09/23/18 01:05 VBG Base Excess -0.2 mmol/L (-3-3) 09/23/18 01:05 Oxygen Liter Flow 3 L 09/22/18 13:44 Sodium 137 mmol/L (136-145) 09/24/18 06:20 Potassium 3.0 mmol/L (3.5-5.1) L 09/24/18 06:20 Chloride 100 mmol/L (98-107) 09/24/18 06:20 Carbon Dioxide 29.5 mmol/L (21.0-32.0) 09/24/18 06:20 Anion Gap 7.5 mmol/L (3-11) 09/24/18 06:20 BUN 41 mg/dL (7-18) H D 09/24/18 06:20 Creatinine 1.69 mg/dL (0.70-1.30) H 09/24/18 06:20 Estimated GFR/1.73 m2 40.09 (mL/min/1.73m2) 09/24/18 06:20 Glucose 202 mg/dL (70-100) H 09/24/18 06:20 Lactate 1.2 mmol/l (0.6-1.4) 09/22/18 09:10 Calcium 8.3 mg/dL (8.5-10.1) L 09/24/18 06:20 Magnesium 2.4 mg/dL (1.8-2.4) 09/24/18 06:20 Total Bilirubin 0.5 mg/dL (0.2-1.0) 09/23/18 01:05 AST 30 U/L (15-37) 09/23/18 01:05 ALT 19 U/L (12-78) 09/23/18 01:05 Alkaline Phosphatase 58 U/L (46-116) 09/23/18 01:05 Troponin I < 0.02 ng/mL (0.00-0.06) 09/22/18 00:18 Total Protein 5.9 g/dL (6.4-8.2) L 09/23/18 01:05 Albumin 2.7 g/dL (3.4-5.0) L 09/23/18 01:05 Procalcitonin 13.2 ng/mL 09/24/18 06:20 Urine Color Yellow (Yellow) 09/22/18 00:50 Urine Clarity Clear 09/22/18 00:50 Urine pH 5.5 (5-8) 09/22/18 00:50 Ur Specific [place] 1.010 (1.005-1.025) 09/22/18 00:50 Urine Protein Negative mg/dL (Negative) 09/22/18 00:50 Urine Ketones Negative mg/dL (Negative) 09/22/18 00:50 Urine Blood Negative (Negative) 09/22/18 00:50 Urine Nitrite Negative (Negative) 09/22/18 00:50 Urine Bilirubin Negative (Negative) 09/22/18 00:50 Urine Urobilinogen 0.2 EU/dL (Up TO 0.2) 09/22/18 00:50 Ur Leukocyte Esterase Trace (Negative) H 09/22/18 00:50 Urine RBC 0-2 (0-2) 09/22/18 00:50 Urine WBC 5-10 HPF (0-5) 09/22/18 00:50 Ur Epithelial Cells Rare HPF (Negative) 09/22/18 00:50 Urine Crystals Negative HPF (Negative) 09/22/18 00:50 Urine Bacteria Many HPF (Negative) 09/22/18 00:50 Urine Casts Negative LPF (Negative) 09/22/18 00:50 Urine Mucus Negative (Negative) 09/22/18 00:50 Ur Culture Indicated? Yes 09/22/18 00:50 Urine Glucose 500 mg/dL (Negative) H 09/22/18 00:50
[2018-09-24] MEDS: DULoxetine 30 MG CAP 60 MG PO (09:08)
[2018-09-24] MEDS: Nystatin POWDER 60 GM JAR TP ×3 (09:08→20:42)
--- NOTE | 2018-09-24 09:10 | PDOC.CMPRO ---
Care Management Progress Note S/O:Parviz's continues to make strides toward his mental baseline. CM requested Palliative Care, PT and OT consults, Dr. Xiong reported speaking with Parviz and his yesterday regarding code status; she reports they were firm on Parviz remaining a full code. Dr. Xiong reported she anticipates Parviz will return home, and will have PT/OT consults prior as there are mixed reports of Parviz's physical functioning. Parviz and his were visiting when CM met with them. Parviz continues to require O2 at this time, CM continues to follow. A: Parviz is a 73 year old man admitted to [facility] on 09/21/18 with a diagnosis of UTI P: Parviz will return home when ready per MD. He will have PT/OT consults to inform discharge needs, he has a walker, wheelchair and cane at home. Anticipate Parviz will discharge home with orders for a sleep study. Per MD, he will be started on BiPAP/CPAP; he will be observed for toleration tonight. CM will continue to provide support to patient, family and the discharge planning process.
[2018-09-24] MEDS: DEXTROSE 5%-LACTATED RINGERS 1,000 ML 100 ML IV (09:37)
--- NOTE | 2018-09-24 10:19 | CMPROGNOTE_ITS ---
Care Management Progress Note S/O:Parviz's continues to make strides toward his mental baseline. CM requested Palliative Care, PT and OT consults, Dr. Xiong reported speaking with Parviz and his yesterday regarding code status; she reports they were firm on Parviz remaining a full code. Dr. Xiong reported she anticipates Parviz will return home, and will have PT/OT consults prior as there are mixed reports of Parviz's physical functioning. Parviz and his were visiting when CM met with them. Parviz continues to require O2 at this time, CM continues to follow. A: Parviz is a 73 year old man admitted to [facility] on 09/21/18 with a diagnosis of UTI P: Parviz will return home when ready per MD. He will have PT/OT consults to inform discharge needs, he has a walker, wheelchair and cane at home. Anticipate Parviz will discharge home with orders for a sleep study. Per MD, he will be started on BiPAP/CPAP; he will be observed for toleration tonight. CM will continue to provide support to patient, family and the discharge planning process.
--- NOTE | 2018-09-24 11:38 | W.INDIABCONS ---
Date of service: 09/24/18 Time of Service: 11:39 Diabetes Inpatient Consult DESCRIPTION/ASSESSMENT: Appreciate diabetes consult for Parviz Pearson who is hospitalized with fever and co-morbidities of sleep apnea and mental status changes. A1c 7.5 BMI 32 At admission he was hypoglycemic at 57mg/dl. He is given sensitive insulin correction only since admission until today when he was administered 12u Lantus. Blood sugars first day 94-246 with sudden jump between lunch and supper. He is taking a clear liquid diet. Blood sugars since the first day 202-239. At home Parviz manages diabetes with 60u Lantus twice daily and insulin 12 units for 71-120, 20 starting at 121. With this he was hypoglycemic at admission. Parviz is not visited at this time due to his current status, but he is known from distant past outpatient contact. 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 INTERVENTION: Appreciate addition of basal insulin for Mr. Pearson given his home total insulin dosing of at least 180units daily. He will likely benefit from insulin for carbohydrate suggested at 1 unit to cover 10 grams as clear liquid diets are carbohydrate intense. Will watch for indication for increased titration of basal insulin. PLAN: Suggest addition of insulin:carbohydrate at 1 unit for 10 grams in addition to his insulin correction. Will follow blood sugars. Will follow up with him when his symptoms improve. Time Spent in Nutritional Counseling and Treatment: 0 minutes face to face
--- NOTE | 2018-09-24 12:12 | W.INDIABCONS ---
Date of service: 09/24/18 Time of Service: 12:12
--- NOTE | 2018-09-24 14:09 | DI.RAD_ITS ---
SYMPTOMS/DIAGNOSIS: HYPOXIA PORTABLE CHEST: Comparison is made with [id number]. Today's exam is of better technical quality. There is a small amount of soft tissues overlying the lung bases. The lungs appear clear where visualized. The heart size appears normal. IMPRESSION: Negative portable chest.
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
[2018-09-24] MEDS: VANCOMYCIN 1,000 MG in Normal Saline 250 ML 166.66 MG IVPB (20:47)
[2018-09-25] VITALS (30 sets, daily range): BP systolic 113–155; BP diastolic 52–89; PULSE 71–98; RESP 12–22; TEMP 36.2–36.6; O2SAT 88–98
[2018-09-25] MEDS: Metoclopramide 10 MG/2 ML VIAL 5 MG IVP ×3 (00:04→11:42)
[2018-09-25] MEDS: PIPERACILLIN/TAZO 3.375 GM in Normal Saline 50 ML IVPB ×5 (00:06→23:37)
[2018-09-25 07:06] LABS: Abs Immature Grans 0.02 k/cumm (0.0-0.09); Absolute Basophil Count 0.01 k/cumm (0.0-0.2); Absolute Lymphocyte Count 0.54 k/cumm (1.2-3.4); Absolute Neutrophil Count 4.36 k/cumm (1.2-6.7); Basophils % 0.2; HGB 9.6 g/dL (13.5-17.5); Immature Grans % 0.3; Lymphocytes % 9.4; Mean Corpuscular Hemoglobin 28.2 pg (27.0-33.0); Mean Corpuscular Volume 90.9 fL (80-95); Mean Platelet Volume 12.1 fL (8.0-11.0); Neutrophils % 76.1; Platelet Count 102 x1000/uL (130-400); RBC 3.41 m/cumm (4.50-6.00); RBC Distribution Width 13.9 % (11.8-14.1); White Blood Cell Count 5.73 k/cumm (4.4-10.8)
[2018-09-25 07:10] LABS: Anion Gap 6.7 mmol/L (3-11); CO2 32.3 mmol/L (21.0-32.0); CREATININE 1.26 mg/dL (0.70-1.30); Calcium 8.6 mg/dL (8.5-10.1); Chloride 100 mmol/L (98-107); Estimated GFR 56.26 (mL/min/1.73m2); Glucose 170 mg/dL (70-100); Potassium 3.3 mmol/L (3.5-5.1); Sodium 139 mmol/L (136-145)
[2018-09-25 07:39] LABS: Magnesium 2.1 mg/dL (1.8-2.4); Vitamin B12 1020 pg/mL (193-986)
[2018-09-25 07:42] LABS: BUN 23 mg/dL (7-18)
--- NOTE | 2018-09-25 08:08 | PDOC.CMPRO ---
Care Management Progress Note S/O: CM spoke with [facility] who directed this typewriter ribbon winder to ask Parviz where he pays taxes. Parviz reports having [place] [facility], but resides in [place], [place]. Anticipate he will have a resumption of services upon discharge. He wore the Bipap last night with good result and tolerated it well. CM continues to follow. A: Parviz is a 73 year old man admitted to [facility] on 09/21/18 with a diagnosis of UTI P: Parviz will return home when ready per MD. He will continue to work with PT/OT to inform discharge needs, he has a walker, wheelchair and cane at home. CM will continue to provide support to patient, family and the discharge planning process.
--- NOTE | 2018-09-25 08:13 | CMPROGNOTE_ITS ---
Care Management Progress Note S/O: CM spoke with [facility] who directed this production underwriter to ask Parviz where he pays taxes. Parviz reports having [place] [facility], but resides in [place], [place]. Anticipate he will have a resumption of services upon discharge. He wore the Bipap last night with good result and tolerated it well. CM continues to follow. A: Parviz is a 73 year old man admitted to [facility] on 09/21/18 with a diagnosis of UTI P: Parviz will return home when ready per MD. He will continue to work with PT/OT to inform discharge needs, he has a walker, wheelchair and cane at home. CM will continue to provide support to patient, family and the discharge planning process.
[2018-09-25] MEDS: Insulin Aspart 300 UNITS/3 ML PEN SC ×3 (08:15→17:10)
[2018-09-25] MEDS: Insulin Glargine 300 UNITS/3 ML PEN 12 UNITS SC (08:15)
--- NOTE | 2018-09-25 08:32 | PGE_ITS ---
Date of Service Date of service: 09/25/18 Time of Service: 08:27 Assessment and Plan (1) Sepsis associated hypotension: Current visit: Yes Status: Acute Due to UTI, POA. C&S is not growing any organisms, but UA is consistent with a UTI and clinically the patient does have it, in addition to presence of perinephric stranding on CT. Blood cultures: NGTD. Steadily improving clinically. Continue vancomycin/zosyn (day 3); s/p 1 day of IV rocephin. Procalcitonin today is 5.7, significantly better. I think that, if his progress continues at this pace, he could be discharged home today on combination of augmentin and levofloxacin tomorrow. However, It is important to rule out cord compression first - MRI lumbar spine is ordered. (2) UTI (urinary tract infection): Current visit: Yes Status: Acute As above (3) Toxic metabolic encephalopathy: Current visit: Yes Status: Resolved Due to sepsis; now 100% back to baseline. No further workup. (4) Urinary retention: Current visit: Yes Status: Acute s/p marmolejo - as above Rule out cord compression with MRI. Consult urology today. On discharged, expected to go home with a marmolejo and a urology follow up. (5) Gastric distention: Current visit: Yes Status: Acute Likely due to gastroparesis. Currently asymptomatic on IV reglan - will transition to PO. Question of autonomic neuropathy due to diabetes. (6) Hematuria: Current visit: Yes Status: Resolved Due to patient pulling on marmolejo - very mild. Off chemical dvt ppx. MOnitor. (7) Shortness of breath: Current visit: No Status: Chronic I strongly suspect obstructive sleep apnea. Tolerated BiPAP tonight. I spoke with respiratory to see if the patient would qualify for a trilogy type of machine - they are looking into it. Meanwhile, if the patient cannot get NIV on discharge, we would have to arrange for nocturnal oxymetry prior to sleep study and pulmonary referral. Continue monitoring on continuous pulse ox. No evidence of an infectious process (8) Hypoxia: Current visit: Yes Status: Resolved As above. (9) Diabetes mellitus with neuropathy: Current visit: No Status: Chronic No change to basal bolus insulin at this time. (10) Colonic stricture: Current visit: Yes Status: Acute Discussed with general surgery - as the patient is clearly not obstructed, he will require an outpatient colonoscopy to ensure that there is no malignancy. (11) YAZAN (acute kidney injury): Current visit: Yes Status: Acute Likely post-renal/obstructive in addition to being due to sepsis. Significantly better. Continue marmolejo and treat infection. Improving. Continue flomax. (12) Thrombocytopenia: Current visit: Yes Status: Chronic Acute on chronic, likely at least partially due to sepsis, now improving. No evidence of schistocytes - not TTP/HUS. Continue to hold heparin. B12 level ok. (13) Fecal incontinence alternating with constipation: Current visit: Yes Status: Chronic Long-standing issue, per . Per my review of imaging, he has never had an MRI of his back - will obtain lumbar MRI to ensure no cord compression. (14) Discharge planning issues: Current visit: Yes Status: Acute Full code. Probable discharge home tomorrow if MRI without significant lumbar spine stenosis with NIV v overnight oxymetry with referral for a sleep study/pulmonology. Will need home health for marmolejo management. (15) DVT prophylaxis: Current visit: Yes Status: Acute TEDS + SCD's (chemical ppx on hold due to thrombocytopenia and reports of hemoccult positive stool as well as mild hematuria). Subjective Interval history since last seen: Spent the night on BiPAP, woke up confused/disoriented once, but otherwise tolerated it well. Even off O2, 91% this am. Working with incentive spirometry. Was able to walk on room air and not require O2. Complains of feeling constipated today. Interestingly, per , the patient does at home have problems with fecal incontinence, especially at night, and he is usually unaware that he had been incontinent. He does state he had lower back pain at home; denies numbness/tingling in genital region. Denies dizziness, chest pain, shortness of breath, nausea, vomiting. Passing flatus. Exam Narrative Exam Narrative: General: Middle-aged Obese male, A&Ox3, looks very engaged - per , as his baseline, compliant, not anxious, on room air. HEENT: EOMI, MMM Heart: RRR, no m/r/g Lungs: CTAB GI: abdomen is soft, distended, nontender at all levels of palpation, + BS Extremities: no edema BLE's, R hand with contracted fingers. Objective Objective Clinical Data: Abnormal lab results 09/25/18 09/25/18 09/25/18 Range/Units 06:10 06:10 06:10 RBC 3.41 L (4.50-6.00) m/cumm Hgb 9.6 L (13.5-17.5) g/dL Hct 31.0 L (40.0-50.0) % MCHC 31.0 L (32.0-36.0) g/dL Plt Count 102 L (130-400) x1000/uL MPV 12.1 H (8.0-11.0) fL Absolute Lymphocytes 0.54 L (1.2-3.4) k/cumm Potassium 3.3 L (3.5-5.1) mmol/L Carbon Dioxide 32.3 H (21.0-32.0) mmol/L BUN 23 H D (7-18) mg/dL Glucose 170 H (70-100) mg/dL Vitamin B12 1020 H (193-986) pg/mL Vital Signs Temperature 36.6 C 09/25/18 07:17 Temperature Source Temporal Artery Scan 09/25/18 07:17 Pulse 85 09/25/18 07:17 Pulse Rhythm Regular 09/25/18 07:20 Pulse 92 H 09/24/18 14:01 Respiratory Rate 20 09/25/18 07:25 Respiratory Effort 09/25/18 07:20 Respiratory Depth Normal 09/25/18 07:20 Respiratory Pattern Normal 09/25/18 07:20 Blood Pressure 113/89 09/25/18 07:17 Blood Pressure Mean 94 09/25/18 07:17 Blood Pressure Position Supine 09/24/18 12:01 Pulse Oximetry 94 L 09/25/18 07:25 Oxygen Delivery Method Nasal Cannula 09/25/18 07:25 Oxygen Flow Rate 2 09/25/18 07:25 Fraction of Inspired Oxygen (FIO2) 32 09/25/18 06:51 Pain Level 0 09/25/18 07:17 Comment 09/23/18 04:25 Intake & Output 09/24/18 09/24/18 09/25/18 11:59 23:59 11:59 Intake Total 1600.000 / 4345.000 2745.000 / 4345.000 700 / 700 Output Total 1600 / 5350 3750 / 5350 2250 / 2250 Balance 0 / -1005.000 -1005.000 / -1005.000 -1550 / -1550 Weight 117.2 kg Intake: IV 1350.000 / 2145.000 795.000 / 2145.000 100 / 100 Oral 250 / 2200 1950 / 2200 600 / 600 Output: Urine 1600 / 5350 3750 / 5350 2250 / 2250 Other: Urine Color Yellow Yellow Light Veronica Urine Appearance Clear Sediment Sediment Hematuria Hematuria Comment pt has indwelling marmolejo catheter pt has indwelling marmolejo catheter Not emptied at this time. Voiding Methods Indwelling Catheter Laboratory Results WBC 5.73 k/cumm (4.4-10.8) 09/25/18 06:10 RBC 3.41 m/cumm (4.50-6.00) L 09/25/18 06:10 Hgb 9.6 g/dL (13.5-17.5) L 09/25/18 06:10 Hct 31.0 % (40.0-50.0) L 09/25/18 06:10 MCV 90.9 fL (80-95) 09/25/18 06:10 MCH 28.2 pg (27.0-33.0) 09/25/18 06:10 MCHC 31.0 g/dL (32.0-36.0) L 09/25/18 06:10 RDW 13.9 % (11.8-14.1) 09/25/18 06:10 Plt Count 102 x1000/uL (130-400) L 09/25/18 06:10 MPV 12.1 fL (8.0-11.0) H 09/25/18 06:10 Immature Gran % 0.3 09/25/18 06:10 Neutrophils % 76.1 09/25/18 06:10 Band Neutrophils % 17.0 % 09/23/18 06:30 Lymphocytes % 9.4 09/25/18 06:10 Atypical Lymphs % 2.0 09/23/18 06:30 Monocytes % 7.0 09/25/18 06:10 Eosinophils % 7.0 09/25/18 06:10 Basophils % 0.2 09/25/18 06:10 Metamyelocytes % 1.0 % 09/23/18 06:30 Absolute Neutrophils 4.36 k/cumm (1.2-6.7) 09/25/18 06:10 Absolute Lymphocytes 0.54 k/cumm (1.2-3.4) L 09/25/18 06:10 Absolute Monocytes 0.40 k/cumm (0.11-0.7) 09/25/18 06:10 Absolute Eosinophils 0.40 k/cumm (0.0-0.7) 09/25/18 06:10 Absolute Basophils 0.01 k/cumm (0.0-0.2) 09/25/18 06:10 Differential Comment Plt morph reviewed 09/24/18 06:20 RBC Morphology Normal 09/24/18 06:20 Polychromasia Present 09/23/18 06:30 Basophilic Stippling Present 09/23/18 01:05 Anisocytosis 1+ 09/23/18 06:30 Sample Site Right radial 09/22/18 13:44 pCO2 35 mmHg (34-47) 09/22/18 13:44 pO2 70 mmHg (83-108) L 09/22/18 13:44 O2 Saturation 94 % (94-98) 09/22/18 13:44 ABG pH 7.45 (7.35-7.45) 09/22/18 13:44 ABG HCO3 24 mmol/L (22-28) 09/22/18 13:44 ABG Total CO2 22 mmol/L (22-29) 09/22/18 13:44 ABG Base Excess 0.2 mmol/L (-3-3) 09/22/18 13:44 VBG pH 7.33 (7.32-7.43) 09/23/18 01:05 VBG pCO2 49 mm/Hg (34-47) H 09/23/18 01:05 VBG pO2 104 mm/Hg (28-44) H 09/23/18 01:05 VBG HCO3 26 mmol/L (22-28) 09/23/18 01:05 VBG Total CO2 25 mmol/L (22-29) 09/23/18 01:05 VBG O2 Saturation 98 % (70-80) H 09/23/18 01:05 VBG Base Excess -0.2 mmol/L (-3-3) 09/23/18 01:05 Oxygen Liter Flow 3 L 09/22/18 13:44 Sodium 139 mmol/L (136-145) 09/25/18 06:10 Potassium 3.3 mmol/L (3.5-5.1) L 09/25/18 06:10 Chloride 100 mmol/L (98-107) 09/25/18 06:10 Carbon Dioxide 32.3 mmol/L (21.0-32.0) H 09/25/18 06:10 Anion Gap 6.7 mmol/L (3-11) 09/25/18 06:10 BUN 23 mg/dL (7-18) H D 09/25/18 06:10 Creatinine 1.26 mg/dL (0.70-1.30) 09/25/18 06:10 Estimated GFR/1.73 m2 56.26 (mL/min/1.73m2) 09/25/18 06:10 Glucose 170 mg/dL (70-100) H 09/25/18 06:10 Lactate 1.2 mmol/l (0.6-1.4) 09/22/18 09:10 Calcium 8.6 mg/dL (8.5-10.1) 09/25/18 06:10 Magnesium 2.1 mg/dL (1.8-2.4) 09/25/18 06:10 Total Bilirubin 0.5 mg/dL (0.2-1.0) 09/23/18 01:05 AST 30 U/L (15-37) 09/23/18 01:05 ALT 19 U/L (12-78) 09/23/18 01:05 Alkaline Phosphatase 58 U/L (46-116) 09/23/18 01:05 Troponin I < 0.02 ng/mL (0.00-0.06) 09/22/18 00:18 Total Protein 5.9 g/dL (6.4-8.2) L 09/23/18 01:05 Albumin 2.7 g/dL (3.4-5.0) L 09/23/18 01:05 Vitamin B12 1020 pg/mL (193-986) H 09/25/18 06:10 Procalcitonin 13.2 ng/mL 09/24/18 06:20 Urine Color Yellow (Yellow) 09/22/18 00:50 Urine Clarity Clear 09/22/18 00:50 Urine pH 5.5 (5-8) 09/22/18 00:50 Ur Specific [place] 1.010 (1.005-1.025) 09/22/18 00:50 Urine Protein Negative mg/dL (Negative) 09/22/18 00:50 Urine Ketones Negative mg/dL (Negative) 09/22/18 00:50 Urine Blood Negative (Negative) 09/22/18 00:50 Urine Nitrite Negative (Negative) 09/22/18 00:50 Urine Bilirubin Negative (Negative) 09/22/18 00:50 Urine Urobilinogen 0.2 EU/dL (Up TO 0.2) 09/22/18 00:50 Ur Leukocyte Esterase Trace (Negative) H 09/22/18 00:50 Urine RBC 0-2 (0-2) 09/22/18 00:50 Urine WBC 5-10 HPF (0-5) 09/22/18 00:50 Ur Epithelial Cells Rare HPF (Negative) 09/22/18 00:50 Urine Crystals Negative HPF (Negative) 09/22/18 00:50 Urine Bacteria Many HPF (Negative) 09/22/18 00:50 Urine Casts Negative LPF (Negative) 09/22/18 00:50 Urine Mucus Negative (Negative) 09/22/18 00:50 Ur Culture Indicated? Yes 09/22/18 00:50 Urine Glucose 500 mg/dL (Negative) H 09/22/18 00:50
[2018-09-25] MEDS: Docusate Sodium 100 MG CAP PO ×2 (08:36→20:47)
[2018-09-25] MEDS: Atorvastatin 40 MG TAB 80 MG PO (08:36)
[2018-09-25] MEDS: Aspirin 81 MG CHEW PO (08:36)
[2018-09-25] MEDS: Furosemide 20 MG TAB PO (08:37)
[2018-09-25] MEDS: DULoxetine 30 MG CAP 60 MG PO (08:37)
[2018-09-25] MEDS: Omeprazole 20 MG CAPCR PO (08:38)
[2018-09-25] MEDS: oxyCODONE-CR 10 MG TABCR 30 MG PO ×3 (08:38→22:03)
[2018-09-25] MEDS: Multivitamin TAB 1 TAB PO (08:38)
[2018-09-25] MEDS: Metoprolol CR 50 MG TABCR PO (08:38)
[2018-09-25] MEDS: Tamsulosin 0.4 MG CAPCR PO (08:39)
[2018-09-25] MEDS: Potassium Chloride 20 MEQ TABCR 40 MEQ PO (08:39)
[2018-09-25] MEDS: Senna TAB 1 TAB PO ×2 (08:39→20:47)
[2018-09-25] MEDS: Pantoprazole 40 MG VIAL IVP ×2 (08:39→20:47)
[2018-09-25] MEDS: Pregabalin 100 MG CAP PO ×3 (08:39→20:47)
[2018-09-25] MEDS: Normal Saline Flush 10 ML SYR IVP ×4 (08:40→23:37)
[2018-09-25] MEDS: Nystatin POWDER 60 GM JAR TP ×2 (10:24→15:12)
[2018-09-25 11:14] LABS: Lyme Ab w Rflx to Lyme Confirm Negative
[2018-09-25 11:29] LABS: Vancomycin, Trough 12.9 ug/mL (10.0-20.0)
--- NOTE | 2018-09-25 11:29 | IN_ITS ---
Date of service: 09/25/18 Time of Service: 09:21 PT Notes Inpatient Physical Therapy Evaluation Date: 09/25/2018 Referring Doctor: Lilly Xiong MD PT Orders: PT CONSULT: Eval/treat Precautions: Fall. Standard. Patient Profile/Admitting Diagnosis: Patient is a 73-year-old male with past medical history significant for cardiac ischemia, diabetes mellitus with neuropathy, and dizziness who presented to the ED on 09/21/2018 with chief complaints of altered mental status and loss of consciousness along with generalized weakness lasting for a day [employer]. Patient was diagnosed with urinary tract infection and generalized weakness. PMHX: Medical History Thrombocytopenia (Chronic 07/27/15) Rupture of left long head biceps tendon (Chronic 05/03/17) Retention of urine (Chronic 11/08/12) Peripheral neuralgia (Chronic) Pain of left thumb (Chronic 07/27/15) Mass of skin of right elbow (Chronic 06/28/16) Low back pain (Chronic 12/24/12) Left groin hernia (Chronic 04/30/15) Hyperlipidemia (Chronic) Hematuria (Chronic 08/12/16) Gait abnormality (Chronic) Dysphagia (Chronic) Dizziness (Chronic) 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) Depressive disorder (Chronic) Cardiac ischemia (Chronic 02/15/17) Arthralgia of left ankle or foot (Chronic) Anxiety (Chronic 11/02/15) Anemia (Chronic 07/27/15) Surgical History Cardiac Cath Extraction of cataract Social History/Home Situation: Patient lives with in a single family home with a ramp to enter. Per OT evaluation notes: his states that they currently have a shower stall for showering that patientt is not able to get into because he is so uncomfortable. Patient states that they have choices for care along with a director of casework who provides recommendations for ways to best access care. Current Functional Limitations: Need for assistance with all transfers and ambulation using FWW Equipment Owned/DME: F[facility], [place], wheelchair Subjective: Patient is pleasant and cooperative, agreeable to a PT consult. He states that he looks forward to going home with whenever he is safe. Objective: General Observation: Patient is seen resting in bed with HOB elevated to at least 45 degrees with leg part down. Telemetry monitoring on. Mental Status: Alert and oriented as to person and time Pain: 0/10 ROM: Right Upper Extremity: Shoulder Flexion WFL. Shoulder abduction WFL. Elbow flexion WFL. Wrist flexion WFL. Functional opening and closing of hand WFL. Left Upper Extremity: Shoulder Flexion WFL. Shoulder abduction WFL. Elbow flexion WFL. Wrist flexion WFL. Functional opening and closing of hand WFL. Right Lower Extremity: Hip flexion WFL. Hip abduction WFL. Knee flexion WFL. Ankle dorsiflexion unabe to dorsiflex beyond neutral. Ankle plantarflexion 5 degrees from neutral. Unable to perform ankle circles. Left Lower Extremity: Hip flexion WFL. Hip abduction WFL. Knee flexion WFL. Ankle dorsiflexion unabe to dorsiflex beyond neutral. Ankle plantarflexion 5 degrees from neutral. Unable to perform ankle circles. Strength: Right Upper Extremity: Shoulder flexors 4-/5. Shoulder abductors 4-/5. Elbow flexors 4/5. Elbow extensors 4-/5. Laboratory Mechanic Helper strong. Left Upper Extremity: Shoulder flexors 4-/5. Shoulder abductors 4-/5. Elbow flexors 4/5. Elbow extensors 4-/5. Laboratory Mechanic Helper strong. Right Lower Extremity: Hip flexors 4/5. Hip abductors 4/5. Knee flexors 4/5. Knee extensors 4/5. Ankle dorsiflexors 2-/5. Ankle plantarflexors 2-/5. Left Lower Extremity:Hip flexors 4/5. Hip abductors 4/5. Knee flexors 4/5. Knee extensors 4/5. Ankle dorsiflexors 2-/5. Ankle plantarflexors 2-/5. Sensation: Intact as to pain and pressure on B LEs Bed Mobility/Transfers: Rolling CGA Supine to sit CGA Sit to supine CGA Sit to stand CGA Stand to sit CGA Bed to chair CGA Chair to bed CGA Gait: Patient was able to tolerate level surface ambulation of 100 feet patient will highly benefit from use of front-wheeled walker in order to increase mobility, increase stability, maximize activity tolerance, and reduce overall fall risk at discharge destination. WBAT and CG. Decreased dorsiflexion on bilateral ankles. Decreased gait velocity. Decreased step height. Balance: Static Sitting: Good Dynamic Sitting: Fair Static Standing: Fair Dynamic Standing: Fair Special Tests: Mobility Limitations Standardized Measure [facility] AM-PAC 6 clicks Basic Mobility Inpatient Short Form: Raw Score: 18 CMS Score: 47% deficit Informed Consent/Education: Patient instructed in purpose of PT consult and plan of care. Patient is agreeable to to address existing impairments and functional mobility decline, and balance. Assessment: Patient is 73-year-old male admitted to this facility for diagnosis of urinary tract infection resulting to functional mobility decline and generalized weakness. Patient presents with clinical signs and symptoms consistent with current/admitting diagnoses that have resulted to mobility limitations, gait instability, generalized weakness, and impairment of motor control as demonstrated by the following impairment level findings: 1. Decreased strength to B LE major muscle groups 2. Impaired sitting/standing balance 3. Impaired activity tolerance 4. Limitation of joint range of motion in bilateral ankles Impairments are contributing to the following functional limitations: 1. Dependent bed mobility skills 2. Increased dependence with transfers 3. Inability to safely ambulate without assistive device and physical assistance 4. Increase completion time for mobility ADL performance 5. Increased fall risk 6. Inability to negotiate ramp alone safely Patient is assessed as a 86241 moderate complexity based on the following: History: Patient is 73-year-old male admitted to this facility for diagnosis of urinary tract infection resulting to functional mobility decline and generalized weakness with comorbidities as indicated above Examination: Underlying impairments and functional limitations as noted above Presentation:Evolving Decision Makin moderate complexity Goals: Goals X1 week 1. Supine-Sit independent 2. Sit-Supine independent 3. Sit-Stand independent 4. Stand-Sit independent 5. Bed-Chair independent 6. Chair-Bed independent 7. Independent gait on level surface with use of least restrictive device for at least 300 feet without report of pain nor dyspnea 8. Independent with home exercise program 9. Good static and dynamic standing balance/tolerance Plan of Care/Treatment Plan: 1-2x/day, 7 days/week x 1 week. Plan of care has been reviewed with the [employer] providing the service under Physical Therapy direction. Initiate Physical Therapy intervention for strengthening, bed mobility, transfers, gait, stairs, balance training, use of assistive device. DISCHARGE RECOMMENDATIONS: Patient will benefit from senior care facility placement in order to progress mobility level, strength, and balance in preparation for a safe discharge to home. TREATMENT CODE/TIME: 30593 for 30 minutes beginning at 9:21 AM. Thank you very much for this referral. Jessi Barr PT, DPT, CLT [facility]
[2018-09-25 12:20] LABS: Procalcitonin 5.7 ng/mL
[2018-09-25] MEDS: VANCOMYCIN 1,000 MG in Normal Saline 250 ML 250 MG IVPB (12:57)
[2018-09-25] MEDS: hydrOXYzine HCL 50 MG TAB PO (14:15)
--- NOTE | 2018-09-25 14:41 | PT.INTREAT ---
Date of service: 09/25/18 Time of Service: 14:41 PT Notes Inpatient Physical Therapy Treatment Note [facility] Date: 09/25/18 PRECAUTIONS: Fall SUBJECTIVE: Parviz is pleasant and agreeable to participating in PT. OBJECTIVE: PAIN: No c/o pain BED MOBILITY/TRANSFERS Sit-stand: CGA Stand-sit: CGA GAIT Assistive Device: FWW Weight bearing: Full Assist: CGA Distance: 200' THEREX: Patient completed a LE strengthening program, in a seated position, as per flow sheet. ASSESSMENT: Patient tolerated session well with some c/o increased fatigue. He was able to tolerate a progression in gait istance with FWW support and SBA. Patient would benefit from continued gait and transfer training, as well a strengthening for improved activity tolerance and mobility. PLAN: Continue with PT's POC TREATMENT CODE/TIME: 25 minutes; [id number], [id number]
[2018-09-25] MEDS: Bisacodyl 5 MG TABEC 10 MG PO (15:05)
[2018-09-25] MEDS: Metoclopramide 10 MG TAB 5 MG PO ×2 (17:03→20:51)
--- NOTE | 2018-09-25 22:48 | NUR.NOTE ---
Nursing Note: 09/25/2018 2150H Patient transferred to Med/Surg Room 210 from ICU. Hand off report from Ana BUTLER. VSS. Patient is alert and oriented. Webb in place with chahal colored urine. Patient is on 4L face mask. Hooked to continuous 02 Sat monitoring. Sleep apnea noted, will continue monitoring for 02 Sat through the night. See additional assessments at worklist.
[2018-09-26] MEDS: VANCOMYCIN 1,000 MG in Normal Saline 250 ML 250 MG IVPB ×2 (00:29→14:11)
[2018-09-26 00:30] LABS: Anaplasma phagocytophilum Negative (Negative); B. miyamotoi PCR Negative (Negative); Babesia divergens/MO-1 Negative (Negative); Babesia duncani Negative (Negative); Babesia microti Negative (Negative); Ehrlichia chaffeensis Negative (Negative); Ehrlichia ewingii/canis Negative (Negative); Ehrlichia muris eauclairensis Negative (Negative)
[2018-09-26 04:45] VITALS: BP 139/72; PULSE 92; RESP 17; TEMP 36.9; O2SAT 98
[2018-09-26 05:28] VITALS: RESP 17
[2018-09-26] MEDS: Normal Saline Flush 10 ML SYR IVP (05:40)
[2018-09-26] MEDS: PIPERACILLIN/TAZO 3.375 GM in Normal Saline 50 ML IVPB ×2 (05:42→12:35)
[2018-09-26 07:05] LABS: Abs Immature Grans 0.02 k/cumm (0.0-0.09); Absolute Basophil Count 0.02 k/cumm (0.0-0.2); Absolute Eosinophil Count 0.39 k/cumm (0.0-0.7); Absolute Lymphocyte Count 0.78 k/cumm (1.2-3.4); Absolute Monocyte Count 0.45 k/cumm (0.11-0.7); Absolute Neutrophil Count 3.99 k/cumm (1.2-6.7); Basophils % 0.4; Eosinophils % 6.9; HCT 30.7 % (40.0-50.0); HGB 9.6 g/dL (13.5-17.5); Immature Grans % 0.4; Lymphocytes % 13.8; Mean Corp. HGB Concentration 31.3 g/dL (32.0-36.0); Mean Corpuscular Hemoglobin 28.6 pg (27.0-33.0); Mean Corpuscular Volume 91.4 fL (80-95); Mean Platelet Volume 11.8 fL (8.0-11.0); Neutrophils % 70.5; Platelet Count 106 x1000/uL (130-400); RBC 3.36 m/cumm (4.50-6.00); RBC Distribution Width 13.7 % (11.8-14.1); White Blood Cell Count 5.65 k/cumm (4.4-10.8)
[2018-09-26 07:35] LABS: Anion Gap 7.6 mmol/L (3-11); BUN 19 mg/dL (7-18); CO2 31.4 mmol/L (21.0-32.0); CREATININE 1.16 mg/dL (0.70-1.30); Calcium 8.5 mg/dL (8.5-10.1); Chloride 100 mmol/L (98-107); Glucose 162 mg/dL (70-100); Magnesium 1.7 mg/dL (1.8-2.4); Potassium 3.6 mmol/L (3.5-5.1); Sodium 139 mmol/L (136-145)
[2018-09-26 07:44] LABS: Procalcitonin 3.5 ng/mL
[2018-09-26 07:48] VITALS: BP 123/65; PULSE 78; RESP 19; TEMP 36.8; O2SAT 95
[2018-09-26] MEDS: Pantoprazole 40 MG VIAL IVP (09:11)
[2018-09-26] MEDS: Omeprazole 20 MG CAPCR PO (09:12)
[2018-09-26] MEDS: Metoclopramide 10 MG TAB 5 MG PO ×2 (09:12→11:27)
[2018-09-26] MEDS: oxyCODONE-CR 10 MG TABCR 30 MG PO ×2 (09:12→14:11)
[2018-09-26] MEDS: Multivitamin TAB 1 TAB PO (09:13)
[2018-09-26] MEDS: Pregabalin 100 MG CAP PO ×2 (09:13→14:11)
[2018-09-26] MEDS: DULoxetine 30 MG CAP 60 MG PO (09:13)
[2018-09-26] MEDS: Tamsulosin 0.4 MG CAPCR PO (09:14)
[2018-09-26] MEDS: Furosemide 20 MG TAB PO (09:14)
[2018-09-26] MEDS: Aspirin 81 MG CHEW PO (09:14)
[2018-09-26] MEDS: Senna TAB 1 TAB PO (09:14)
[2018-09-26] MEDS: Metoprolol CR 50 MG TABCR PO (09:14)
[2018-09-26] MEDS: Docusate Sodium 100 MG CAP PO (09:14)
[2018-09-26] MEDS: Atorvastatin 40 MG TAB 80 MG PO (09:14)
[2018-09-26] MEDS: Insulin Glargine 300 UNITS/3 ML PEN 12 UNITS SC (09:20)
[2018-09-26] MEDS: Insulin Aspart 300 UNITS/3 ML PEN SC ×2 (09:20→12:28)
[2018-09-26] MEDS: Nystatin POWDER 60 GM JAR TP ×2 (09:21→14:12)
[2018-09-26] MEDS: Magnesium Oxide 400 MG TAB PO (11:27)
--- NOTE | 2018-09-26 11:30 | PT.INTREAT ---
Date of service: 09/26/18 Time of Service: 11:30 PT Notes Inpatient Physical Therapy Treatment Note [facility] Date: 09/26/18 PRECAUTIONS: Fall SUBJECTIVE: Parviz is agreeable to participating in PT following some encouragement. He states that he has not had any time to rest this morning. OBJECTIVE: PAIN: Patient c/o LE discomfort with gait training BED MOBILITY/TRANSFERS Supine-sit: Min A with HOB at 40 degrees Sit-supine: SBA with HOB flat Sit-stand: Min A from low surface in a.m.; SBA in p.m. Stand-sit: CGA in a.m.; SBA in p.m. GAIT Assistive Device: FWW Weight bearing: Full Assist: SBA Distance: 150' in both a.m. and p.m. THEREX: Patient completed an UE and LE strengthening program, in a seated position in a.m., and in a supine position in p.m., as per flow sheet. ASSESSMENT: Patient tolerated session well with c/o increased fatigue. He was able to tolerate a progression in ther ex. Patient would benefit from continued gait and transfer training, as well a strengthening for improved activity tolerance and mobility. PLAN: Continue with PT's POC TREATMENT CODE/TIME: Session 1: 25 minutes; [id number], [id number] Session 2: 30 minutes; [id number], [id number]
--- NOTE | 2018-09-26 11:33 | PTTR_ITS ---
Date of service: 09/26/18 Time of Service: 11:30 PT Notes Inpatient Physical Therapy Treatment Note [facility] Date: 09/26/18 PRECAUTIONS: Fall SUBJECTIVE: Parviz is agreeable to participating in PT following some encouragement. He states that he has not had any time to rest this morning. OBJECTIVE: PAIN: Patient c/o LE discomfort with gait training BED MOBILITY/TRANSFERS Supine-sit: Min A with HOB at 40 degrees Sit-supine: SBA with HOB flat Sit-stand: Min A from low surface in a.m.; SBA in p.m. Stand-sit: CGA in a.m.; SBA in p.m. GAIT Assistive Device: FWW Weight bearing: Full Assist: SBA Distance: 150' in both a.m. and p.m. THEREX: Patient completed an UE and LE strengthening program, in a seated position in a.m., and in a supine position in p.m., as per flow sheet. ASSESSMENT: Patient tolerated session well with c/o increased fatigue. He was able to tolerate a progression in ther ex. Patient would benefit from continued gait and transfer training, as well a strengthening for improved activity tolerance and mobility. PLAN: Continue with PT's POC TREATMENT CODE/TIME: Session 1: 25 minutes; [id number], [id number] Session 2: 30 minutes; [id number], [id number]
[2018-09-26 11:44] VITALS: BP 118/59; PULSE 75; RESP 18; TEMP 36.3; O2SAT 95
[2018-09-26 11:57] VITALS: RESP 16; RESP 18; O2SAT 95
--- NOTE | 2018-09-26 13:43 | PDOC.CMDIS ---
LACE Index Scoring Tool - Questions: Length of Stay (in days): 4 - 6 Acuity (Admit via E.D.?): Yes Comorbidities: Diabetes w/o Complication E.D. Visits: 1 - Answers: Total Score: 9 Risk of Readmission: Low Risk Care Management Discharge Reason for Hospitalization: UTI Discharge Plan: Parviz will return home when ready per MD. He will have new orders for RN/PT/OT, CM notified Jennifer at [facility]. Parviz has a walker, wheelchair and cane at home. He will follow up with his PCP and plan of care as prescribed. He will transport via private vehicle with his . Patient/Family Education Needs: Review discharge instructions, discuss Ask Me Three. Services Needed at Discharge: Home Health Care Services (RN, PT, OT through [facility] )
--- NOTE | 2018-09-26 13:53 | CMDISCH_ITS ---
LACE Index Scoring Tool - Questions: Length of Stay (in days): 4 - 6 Acuity (Admit via E.D.?): Yes Comorbidities: Diabetes w/o Complication E.D. Visits: 1 - Answers: Total Score: 9 Risk of Readmission: Low Risk Care Management Discharge Reason for Hospitalization: UTI Discharge Plan: Parviz will return home when ready per MD. He will have new orders for RN/PT/OT, CM notified Jennifer at [facility]. Parviz has a walker, wheelchair and cane at home. He will follow up with his PCP and plan of care as prescribed. He will transport via private vehicle with his . Patient/Family Education Needs: Review discharge instructions, discuss Ask Me Three. Services Needed at Discharge: Home Health Care Services (RN, PT, OT through [facility] )
--- NOTE | 2018-09-26 14:46 | W.PM.DS.N ---
Date of service: 09/26/18 Time of Service: 14:46 DS: Diagnosis Discharge Diagnosis (1) Sepsis associated hypotension: Status: Acute (2) UTI (urinary tract infection): Status: Acute (3) Toxic metabolic encephalopathy: Status: Resolved (4) Urinary retention: Status: Acute (5) Gastric distention: Status: Acute (6) Hematuria: Status: Resolved (7) Hypoxia: Status: Chronic Asessment and Plan: nocturnal (8) Diabetes mellitus with neuropathy: Status: Chronic (9) Colonic stricture: Status: Acute (10) YAZAN (acute kidney injury): Status: Acute (11) Thrombocytopenia: Status: Chronic (12) Fecal incontinence alternating with constipation: Status: Chronic Discharge Plan Disposition Patient Disposition: HOME W/HOME HEALTH SERVICE Condition: Poor Discharge Details Chief Complaint: AMS/LOC Reason For Visit: UTI, DEHYDRATION, CONFUSION Admit Date/Time: 09/22/18 03:57 Admit Provider: Dimitris Feldman Attending Provider: Dimitris Feldman Primary Care Provider: Diana Murdock ED Provider: Tristian Becker [place] [facility] Hospital Course: Mr Pearson is a 73 year old male with PMHx of IDDM2, hypertension, hyperlipidemia, GERD, obesity with BMI of 33.1, admitted to [facility] ICU on 09/22/18 with sepsis due to UTI with urinary retention accompanied by toxic metabolic encephalopathy and YAZAN. Mr Pearson had a marmolejo catheter placed, was initially started on IV rocephin, but because of severity of his sepsis/hypotension/impending shock, the antibiotics were expanded to vancomycin/zosyn. He was aggressively hydrated. The urine culture as well as blood culture did not show any growth to date - however, he did have evidence of UTI on UA and perinephric stranding on CT. With these antibiotics, his BP, mental status, overall medical condition, and procalcitonins improved steadily. On day of discharge, the patient feels back to his baseline. He will be discharged home with a marmolejo catheter and a total of 2 weeks of antibiotics (he is currently on day 5, will be discharged home on levofloxacin). He will be discharged home with home health nursing, PT/OT. We are also highly suspicious that the patient has obstructive sleep apnea as we saw evidence of apnea and hypoxia every night. We trials the patient on BiPAP at night, which he tolerated well for one night, but notably is quite anxious about having to wear in the future. He is ok with wearing a nasal cannula. We are referring him for a sleep study. The abdominal CT on admission revealed 2 possible strictures in the colon without evidence of obstruction. The patient was evaluated by general surgeyr and will require an outpatient colonoscopy once he completes his therapy for a UTI. He will need a bowel regimen as he does have evidence of constipation. Constipation and urinary retention can, of course, go hand in hand. It would also be important to ensure that the patient does not have pathology in lumbosacral spine to explain his urinary retention/constipation/occasional fecal incontinence. While an MRI of lower back was attempted at [facility], the patient could not tolerate it due to anxiety. He is recommended to have an open MRI of lumbosacral spine as outpatient. There is also a high suspicion for him having some degree of gastroparesis. He received 2 days of low dose reglan in the hospital, but we do not feel he was very symptomatic of this. We are not continuing the reglan as outpatient, but this could always be reattempted if the patient becomes symptomatic in addition to a formal gastric emptying study. General surgery feels that he would benefit from an outpatient EGD due to brief hemoccult positivity, not hemodynamically significant. He is being discharged with a PPI. 60 minutes were spent on preparation of discharge summary. Home Meds and New Rx's Prescriptions: New docusate sodium [Colace] 100 mg Capsule 100 mg PO BID Qty: 60 RF: 0 pantoprazole [Protonix] 40 mg tablet,delayed release (DR/EC) 40 mg PO DAILY Qty: 30 RF: 0 levofloxacin 500 mg tablet 500 mg PO DAILY Qty: 9 RF: 0 Continued Dexcom G4 [employer]ing [employer] misc .ROUTE .MEDSUPPLY Qty: 1 RF: 0 Dexcom G5-G4 Sensor device .ROUTE .MEDSUPPLY Qty: 3 RF: 12 Dexcom G4 Transmitter device .ROUTE .MEDSUPPLY Qty: 1 RF: 0 atorvastatin 80 mg tablet 80 mg PO DAILY Qty: 90 RF: 11 Lantus Solostar U-100 Insulin 100 unit/mL (3 mL) insulin pen 60 unit subcut BID RF: 0 tamsulosin 0.4 mg capsule 0.4 mg PO DAILY Qty: 30 RF: 6 Jardiance 25 mg tablet 25 mg PO QAM Qty: 30 RF: 6 oxycodone 15 mg tablet 15 mg PO TID PRN MDD 3 Qty: 70 RF: 0 oxycodone [OxyContin] 30 mg tablet,oral only,ext.rel.12 hr 30 mg PO TID MDD 3 Qty: 70 RF: 0 multivitamin 1 EACH tablet 1 tab PO DAILY RF: 0 aspirin [Aspirin Low-Strength] 81 MG tablet,chewable 1 tab PO DAILY RF: 0 NARCOTIC CONTRACT RF: 0 Blood Glucose Test 1 EACH strip 1 ea Miscellaneous AC & HS Qty: 400 RF: 4 pen needle, diabetic 31 gauge x 1/3 needle 1 ea Miscellaneous AC & HS Qty: 360 RF: 4 blood-glucose meter misc .Route .MEDSUPPLY Qty: 1 RF: 0 Blood Glucose Test strip .Route .MEDSUPPLY Qty: 400 RF: 5 lancets 25 gauge misc .Route .MEDSUPPLY Qty: 100 RF: 4 Lyrica 100 mg capsule 100 mg PO TID Qty: 270 RF: 3 nitroglycerin 0.4 mg tablet, sublingual 0.4 mg SL ONCE Qty: 25 RF: 1 polyethylene glycol 3350 17 gram powder in packet 17 gm PO DAILY PRN (Reason: constipation) Qty: 90 RF: 4 furosemide 20 mg tablet 20 mg PO DAILY Qty: 90 RF: 11 metoprolol succinate 50 mg tablet extended release 24 hr 50 mg PO DAILY Qty: 90 RF: 3 amlodipine 10 mg tablet 10 mg PO QAM Qty: 90 RF: 12 duloxetine [Cymbalta] 60 mg capsule,delayed release(DR/EC) 60 mg PO DAILY Qty: 90 RF: 12 nortriptyline 50 mg capsule 50 mg PO HS Qty: 90 RF: 12 omeprazole 20 mg capsule,delayed release(DR/EC) 20 mg PO DAILY Qty: 90 RF: 12 sennosides [Senokot] 8.6 mg tablet 17.2 mg PO QPM PRN (Reason: constipation) Qty: 180 RF: 0 Humalog KwikPen Insulin 100 unit/mL insulin pen See Rx Instructions subcut AC Qty: 150 RF: 5 Discontinued losartan 100 mg tablet 100 mg PO QAM Qty: 90 RF: 12 chlorthalidone 25 mg tablet 25 mg PO DAILY Qty: 90 RF: 12 Discharge Instructions Instructions: Levofloxacin (By mouth), Dehydration (DC), Urinary Retention in Men (GEN), Urinary Tract Infection in Men (DC), Marmolejo Catheter Placement and Care (DC), Polysomnography (DC), Pulse Oximetry (DC), Encephalopathy (DC) Additional Instructions: Finish your antibiotics as presercibed. Return to the hospital with any fever, bleeding, chest pain, or shortness of breath. Follow up with your PCP in 1-2 weeks. Routine marmolejo catheter care. Stand Alone Forms: Nursing Discharge Form Referrals: [facility] [OTHER] - Dorian Sullivan MD [ [facility] STAFF PHYSICIAN] - Diana Murdock [place], [place] [Primary Care Provider] - Diana Brooke MD [ [facility] STAFF PHYSICIAN] - Activity:: Activity as Tolerated Equipment/Supplies:: No Equipment Needed Diet:: carbohydrate consistent heart healthy Discharge Orders Discharge Orders: Discharge Order (Routine); Ordered 09/26/18 Ordered By: Lilly Xiong Other Ambulatory Orders: SaO2 Overnight Study (Outpt) (ONCE) Location: Determined by Patient Ordered By: Lilly Xiong Exam Narrative Exam Narrative: General: Middle-aged Obese male, A&Ox3, appropriate, conversant, not in distress HEENT: EOMI, MMM Heart: RRR, no m/r/g Lungs: CTAB GI: abdomen is soft, distended, nontender at all levels of palpation, + BS Extremities: no edema BLE's, R hand with contracted fingers. DS: Data Vitals/I&O Vitals and I&O: Vital Signs Temperature 36.3 C L 09/26/18 11:44 Temperature Source Tympanic 09/26/18 11:44 Pulse 75 09/26/18 11:44 Pulse Rhythm Regular 09/26/18 12:05 Pulse 92 H 09/24/18 14:01 Respiratory Rate 16 09/26/18 11:57 Respiratory Effort 09/26/18 12:05 Respiratory Depth Normal 09/26/18 12:05 Respiratory Pattern Normal 09/26/18 12:05 Blood Pressure 118/59 L 09/26/18 11:44 Blood Pressure Mean 76 09/25/18 15:19 Blood Pressure Position Supine 09/24/18 12:01 Pulse Oximetry 95 09/26/18 11:57 Oxygen Delivery Method Room Air 09/26/18 11:57 Oxygen Flow Rate 0 09/26/18 11:57 Fraction of Inspired Oxygen (FIO2) 32 09/25/18 06:51 Pain Level 6 09/26/18 14:11 Comment 09/25/18 15:17 Intake & Output 09/25/18 09/26/18 09/26/18 23:59 11:59 23:59 Intake Total 1860.0 / 3310.0 590 / 830 240 / 830 Output Total 2150 / 5075 2350 / 2350 Balance -290.0 / -1765.0 -1760 / -1520 240 / -1520 Weight 116.9 kg Intake: IV 380.0 / 490.0 350 / 350 Oral 1480 / 2820 240 / 480 240 / 480 Output: Urine 2150 / 5075 2350 / 2350 Other: Urine Color Hartman Yellow Urine Appearance Clear Clear Clear Hematuria Comment Reviewed marmolejo care as pt likely going home with marmolejo in place. Stool Size Small Stool Characteristics Formed Hard Completed studies during hospitalization [Text1]: CT chest 09/22/18: No acute abnormality. CT abdomen/pelvis 09/22/18: Inflammatory changes around the cecum. Preliminary read identifies 2 areas of strictures in the colon and perinephric stranding. CT head 09/22/18: No acute abnormality. CXR 09/22/18: No acute abnormality. CXR/XR abdomen 09/23/18: Gastric distension and mild colonic distension. CXR 09/24/18: Negative portable chest. Labs on day of discharge: Labs from last 24 hours 09/26/18 09/26/18 09/26/18 06:20 06:20 06:20 WBC 5.65 RBC 3.36 L Hgb 9.6 L Hct 30.7 L MCV 91.4 MCH 28.6 MCHC 31.3 L RDW 13.7 Plt Count 106 L MPV 11.8 H Immature Gran % 0.4 Neutrophils % 70.5 Lymphocytes % 13.8 Monocytes % 8.0 Eosinophils % 6.9 Basophils % 0.4 Absolute Neutrophils 3.99 Absolute Lymphocytes 0.78 L Absolute Monocytes 0.45 Absolute Eosinophils 0.39 Absolute Basophils 0.02 Sodium 139 Potassium 3.6 Chloride 100 Carbon Dioxide 31.4 Anion Gap 7.6 BUN 19 H Creatinine 1.16 Estimated GFR/1.73 m2 >= 60.00 Glucose 162 H Calcium 8.5 Magnesium 1.7 L Procalcitonin 3.5 A.phagocytophil DNA PCR B. divergens/MO-1 PCR Babesia duncani (PCR) Babesia microti DNA PCR Borrelia (PCR) E.chaffeensis DNA (PCR) E.ewingii/canis DNA PCR E. muris-like DNA (PCR) 09/23/18 06:30 WBC RBC Hgb Hct MCV MCH MCHC RDW Plt Count MPV Immature Gran % Neutrophils % Lymphocytes % Monocytes % Eosinophils % Basophils % Absolute Neutrophils Absolute Lymphocytes Absolute Monocytes Absolute Eosinophils Absolute Basophils Sodium Potassium Chloride Carbon Dioxide Anion Gap BUN Creatinine Estimated GFR/1.73 m2 Glucose Calcium Magnesium Procalcitonin A.phagocytophil DNA PCR Negative B. divergens/MO-1 PCR Negative Babesia duncani (PCR) Negative Babesia microti DNA PCR Negative Borrelia (PCR) Negative E.chaffeensis DNA (PCR) Negative E.ewingii/canis DNA PCR Negative E. muris-like DNA (PCR) Negative Preliminary micro results at discharge 09/22/18 00:37 Blood Culture - Preliminary Blood NO GROWTH 96 HOURS 09/22/18 00:58 Blood Culture - Preliminary Blood NO GROWTH 96 HOURS [facility] Medical History Colonic stricture (Acute) Anemia (Acute 11/07/05) Cataract (Acute) Smoker (Acute) Thrombocytopenia (Chronic 07/27/15) Rupture of left long head biceps tendon (Chronic 05/03/17) Retention of urine (Chronic 11/08/12) Peripheral neuralgia (Chronic) Pain of left thumb (Chronic 07/27/15) Mass of skin of right elbow (Chronic 06/28/16) Low back pain (Chronic 12/24/12) Left groin hernia (Chronic 04/30/15) Hyperlipidemia (Chronic) Hematuria (Chronic 08/12/16) Gait abnormality (Chronic) Dysphagia (Chronic) Dizziness (Chronic) 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
--- NOTE | 2018-09-26 15:22 | PDOC.HHF2F ---
1. Encounter Date and Reason I certify that DAVID ANDERSEN was seen by Lilly Xiong on 09/26/18 and that I had a [id number] encounter with this patient that meets the physician face to face encounter requirements. 2. Clinical Findings Supporting Skilled Need and Homebound Status I certify that home health services are medically necessary, include either intermittent correction and/or physical/speech therapy, and that this patient is homebound in that absences from the home require considerable and taxing effort and are infrequent or of short duration, or are attributable to the need to receive medical care. [X] (a) Attached documentation from encounter provides clinical findings supporting skilled need and homebound status (including what assistance patient requires to leave the home). The encounter with the patient was in whole, or in part, for the following medical condition, which is the primary reason for home health care: UTI, DEHYDRATION, CONFUSION Residential: evaluate/medication teaching, marmolejo catheter care Physical Therapy: eval and treat Occupational Therapy: eval and treat Homebound: Unable to leave home without assistance 3. Certification and Authentication I certify that I composed the above information based on my clinical judgement relating to this patient's medical condition and, if applicable, clinical findings communicated to me by the NPP or inpatient physician who performed the Home Health Referral. All further orders will be obtained through ___Dr Murdock (Community Based Physician - PCP)
== END 2018-09-26 17:10 | disposition home health service (06) | DRG 871 ==
LOC: ER 09-22 04:03 → ICU 09-22 05:21 → MS 09-26 15:01 → ICU 09-27 14:15
PROVIDERS: Family Medicine; Admitting Provider General Practice; Emergency Provider Emergency Medicine; PCP Family Medicine; Visit Provider Internal Medicine
DX: A41.9 Sepsis, unspecified organism; G92 Toxic encephalopathy; N17.9 Acute kidney failure, unspecified; N39.0 Urinary tract infection, site not specified; K56.699 Other intestinal obstruction unspecified as to partial versus complete obstruction; J98.11 Atelectasis; R65.20 Severe sepsis without septic shock; R33.8 Other retention of urine; G47.33 Obstructive sleep apnea (adult) (pediatric); R09.02 Hypoxemia; E11.42 Type 2 diabetes mellitus with diabetic polyneuropathy; D69.6 Thrombocytopenia, unspecified; K59.00 Constipation, unspecified; K52.9 Noninfective gastroenteritis and colitis, unspecified; Z79.4 Long term (current) use of insulin; Z71.3 Dietary counseling and surveillance
CPT/HCPCS: 36415; 36416; 51702; 71250; 80048; 80051; 80053; 82805; 82962; 84145; 84520; 87040; 87798; 93005; 94640; 96361; 96365; 96367; 97110; 97162; 97166; 97530; 97535; 99222; 99223; 99232; 99233; 99239; 99253; 99285; 99291; 36600; 70450; 71045; 74022; 74176; 80202; 81003; 81015; 82565; 82607; 83605; 83735; 84484; 85014; 85018; 85025; 86618; 87086; 93010; 94660; J1644; J2543; J2765; J3490; J7620

== ENCOUNTER → 2018-10-01 13:13 | Outpatient (BNVA) | payer MEDICARE, MEDICAID, SELFPAY | PROVIDERS: PCP Family Medicine; Referring Provider Family Medicine; Visit Provider Surgery | DX: R19.5 Other fecal abnormalities (principal); R19.4 Change in bowel habit; E11.42 Type 2 diabetes mellitus with diabetic polyneuropathy; Z79.4 Long term (current) use of insulin | CPT/HCPCS: 99213 ==

== ENCOUNTER 2018-10-12 00:21 | Observation (INO) | payer MEDICARE, MEDICAID, SELFPAY ==
[2018-10-12] VITALS (16 sets, daily range): BP systolic 100–149; BP diastolic 44–70; PULSE 80–96; RESP 16–20; TEMP 36.7–38.8; O2SAT 92–97
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
[2018-10-12 02:04] LABS: Abs Immature Grans 0.02 k/cumm (0.0-0.09); Absolute Basophil Count 0.02 k/cumm (0.0-0.2); Absolute Eosinophil Count 0.12 k/cumm (0.0-0.7); Absolute Lymphocyte Count 0.78 k/cumm (1.2-3.4); Absolute Monocyte Count 0.72 k/cumm (0.11-0.7); Absolute Neutrophil Count 7.44 k/cumm (1.2-6.7); Basophils % 0.2; Eosinophils % 1.3; HCT 26.1 % (40.0-50.0); HGB 8.2 g/dL (13.5-17.5); Immature Grans % 0.2; Lymphocytes % 8.6; Mean Corp. HGB Concentration 31.4 g/dL (32.0-36.0); Mean Corpuscular Volume 89.1 fL (80-95); Mean Platelet Volume 10.9 fL (8.0-11.0); Monocytes % 7.9; Neutrophils % 81.8; Platelet Count 228 x1000/uL (130-400); RBC 2.93 m/cumm (4.50-6.00)
[2018-10-12 02:06] LABS: Lactate-non-spesis 1.1 mmol/l (0.6-1.4)
--- NOTE | 2018-10-12 02:21 | DI.CT_ITS ---
SYMPTOMS/DIAGNOSIS: FEVER, RT SIDED PAIN CT OF THE CHEST, ABDOMEN AND PELVIS: Comparison is made with [id number]. CHEST CT: There are small bilateral pleural effusions, unchanged. There is improvement in previously noted airspace densities, now with minimal atelectasis. No pericardial effusion is seen. There are no infiltrates. IMPRESSION: Stable small bilateral pleural effusions. Improvement in pulmonary aeration. ABDOMEN AND PELVIC CT: The exam is quite limited by motion, lack of contrast as well as patient body habitus. There has been some interval worsening of inflammatory changes seen around the cecum. There is retained stool in this area. There is also some dilatation of small bowel which was not seen on the previous exam. The appendix is not dilated. There is no pneumatosis. The liver, gallbladder, spleen, pancreas, kidneys and adrenals are unchanged. The bladder shows a catheter and is decompressed. IMPRESSION: Increasing inflammatory changes around the cecum as well as increasing small bowel dilatation.
[2018-10-12 02:26] LABS: ALT 15 U/L (12-78); AST 15 U/L (15-37); Albumin 2.1 g/dL (3.4-5.0); Alkaline Phosphatase 59 U/L (46-116); BUN 17 mg/dL (7-18); Bilirubin, Total 0.2 mg/dL (0.2-1.0); Calcium 6.6 mg/dL (8.5-10.1); Chloride 109 mmol/L (98-107); Glucose 178 mg/dL (70-100); Magnesium 1.1 mg/dL (1.8-2.4); Potassium 3.6 mmol/L (3.5-5.1); Sodium 143 mmol/L (136-145)
[2018-10-12 02:29] LABS: Troponin I < 0.05 ng/mL (0.00-0.06)
[2018-10-12] MEDS: Lactated Ringers 1,000 ML 1000 ML IV (02:30)
[2018-10-12] MEDS: Acetaminophen 500 MG TAB 1000 MG PO (02:30)
[2018-10-12] MEDS: Lidocaine 2% Jelly 6 ML SYR (02:31)
[2018-10-12] MEDS: Normal Saline Flush 10 ML SYR IVP (02:31)
--- NOTE | 2018-10-12 02:40 | DI.VRAD_ITS ---
EXAM: CT Chest Without Contrast EXAM DATE/TIME: 10/12/2018 01:29 CLINICAL HISTORY: 73 years old, male; Fever; Localized; Right; Other: Abdominal pain, RT side; Additional info: Difficult time holding breath during the exam TECHNIQUE: Imaging protocol: Axial computed tomography images of the chest without intravenous contrast. Coronal and sagittal reformatted images were created and reviewed. Radiation optimization: All CT scans at this facility use at least one of these dose optimization techniques: automated exposure control; mA and/or kV adjustment per patient size (includes targeted exams where dose is matched to clinical indication); or iterative reconstruction. COMPARISON: CT CHEST/ABD/PEL WO 09/22/2018 01:26 FINDINGS: Lungs: Slight improvement in aeration of the lungs with mild persistent dependent subsegmental atelectasis. No airspace consolidation. Pleural space: Similar small bilateral pleural effusions. Heart: Coronary atherosclerosis. Aorta: No aortic aneurysm. Lymph nodes: No enlarged lymph nodes. Bones/joints: No acute fracture. Soft tissues: Gynecomastia. Similar to prior. IMPRESSION: 1. Similar small bilateral pleural effusions. 2. Slight improvement in aeration of the lungs with mild persistent dependent subsegmental atelectasis. 3. Incidental findings as described. EXAM: CT Abdomen and Pelvis Without Contrast EXAM DATE/TIME: 10/12/2018 01:29 CLINICAL HISTORY: 73 years old, male; Fever; Localized; Right; Other: Abdominal pain, RT side; Additional info: Difficult time holding breath during the exam TECHNIQUE: Imaging protocol: Axial computed tomography images of the abdomen and pelvis without contrast. Coronal and sagittal reformatted images were created and reviewed. Radiation optimization: All CT scans at this facility use at least one of these dose optimization techniques: automated exposure control; mA and/or kV adjustment per patient size (includes targeted exams where dose is matched to clinical indication); or iterative reconstruction. COMPARISON: CT CHEST/ABD/PEL WO 09/22/2018 01:26 FINDINGS: Liver: No mass. Gallbladder and bile ducts: No calcified stones. No ductal dilation. Pancreas: No ductal dilation. No masses. Spleen: No splenomegaly or focal lesions. Adrenals: No mass. Kidneys and ureters: No hydronephrosis. Stomach and bowel: Worsened inflammatory changes in the right colon. Increased wall thickening of the cecum and proximal ascending colon, now moderate. Of thickening appears generally more eccentric than circumferential. Mild pericolic inflammatory changes. No colonic obstruction although there is focal dilation at the level of colonic wall thickening. No focal pathology in the small bowel. No definite pathology of the ileocecal valve. Appendix: No evidence of appendicitis. Intraperitoneal space: No free air. No significant fluid collection. Vasculature: No abdominal aortic aneurysm. Lymph nodes: No significantly enlarged lymph nodes. Bladder: Webb catheter in a decompressed urinary bladder. Reproductive: Unremarkable as visualized. Bones/joints: Degenerative changes in the spine. Multilevel disc space narrowing. Soft tissues: Bilateral fat-containing inguinal hernias. Other findings: Mild motion artifact in the abdomen. IMPRESSION: 1. Worsened inflammatory changes and wall thickening in the right colon as described. Differential diagnosis includes malignancy and progressive colitis. 2. Webb catheter in a decompressed urinary bladder. 3. Incidental findings as described. Dictated and Authenticated by: Amelia Brunner MD. Ordering:ITZEL Lubin MD
[2018-10-12] MEDS: metroNIDAZOLE 500 MG/100 ML BAG 100 MG IVPB ×3 (03:28→19:35)
[2018-10-12 03:42] LABS: Bilirubin Negative (Negative); Blood Moderate (Negative); Clarity Clear (Clear); Glucose 100 mg/dL (Negative); Ketones Negative (Negative); Leukocyte Esterase Negative (Negative); Nitrite Negative (Negative); Specific Gravity 1.015 (1.005-1.025); Urobilinogen 0.2 EU/dL (Up TO 0.2); pH 5.5 (5-8)
[2018-10-12 03:58] LABS: Bacteria Few HPF (Negative); Epithelial Cells Moderate HPF (Negative); Other Cells Moderate Renal (Negative)
[2018-10-12 03:59] LABS: C & S Indicated? No; Casts Negative LPF (Negative); Crystals Many Amorphous HPF (Negative); Mucus Heavy (Negative)
[2018-10-12] MEDS: CIPROFLOXACIN 400 MG/200 ML BAG 200 MG IVPB ×3 (04:30→23:26)
[2018-10-12] MEDS: Lactated Ringers 1,000 ML 125 ML IV ×2 (04:31→18:12)
[2018-10-12] MEDS: MAGNESIUM SULFATE 2 GM/50 ML BAG IVPB ×2 (05:42→15:21)
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
[2018-10-12] MEDS: oxyCODONE 15 MG TAB PO (12:02)
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
[2018-10-12] MEDS: Insulin Aspart 300 UNITS/3 ML PEN SC ×2 (12:30→16:55)
--- NOTE | 2018-10-12 13:21 | PHARADMIT ---
Admission Pharmacy Clinical Review COLITIS Code Status Full Code Current Weight Wgt-113.7 kg Renally Cleared and Narrow Therapeutic Index Meds CrCl~ 81 mL/min Meds-OK QTc Value / Action Taken BP Control, Fever BP-123/70 Tmax-36.8C Electrolytes reviewed Na- 143 K+3.6 Mag-1.1 DVT Prophylaxis ASA Opiate Usage / Scheduled Bowel Regimen Ordered Yes No Plt/SCr for Heparin / Enoxaparin Plts- 228 SCr- 0.90 INR for Warfarin NA H/H stable, WBC/Bands H&H- 8.2/26.1 WBC- 9.10 Antibiotic appropriateness Cipro, Flagyl Cultures and Sensitivities Blood-Pending Surgical ABX d/c within 24 hr NA DM control / Insulin Dosing BG-178 Aspart, Heart Failure (Check EF%) (VIKY's, B-Block, Diuretics) Norvasc, Toprol-XL IV to PO Switch No Home Meds Reviewed Yes Home Meds Not Ordered Chlorthalidone, Lasix, Losartan, Lipitor, M-vites, Levaquin, Nystatin, Omeprazole NTG, Comments
--- NOTE | 2018-10-12 13:41 | CHAPLAIN ---
Parviz was fairly uncomfortable when I visited. He requested some more kale jaimee, so I got that for him after checking with his nurse, Elise Sinclair. He also asked me to let CARRIE Olivares, know that he was in pain, and I did that.
[2018-10-12] MEDS: oxyCODONE 15 MG TAB 30 MG PO ×2 (14:08→19:43)
[2018-10-12] MEDS: Pregabalin 100 MG CAP PO ×2 (14:08→19:43)
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
--- NOTE | 2018-10-12 16:35 | W.PM.PROGNOT ---
Date of Service Date of service: 10/12/18 Time of Service: 16:35 Assessment and Plan (1) Colitis: Current visit: No Status: Chronic A\\ Still with very low grade fevers. Has not gotten out of bed. Requiring 4 L of O2 Complaining of 10/10 pain but abdomen is soft and there is no rebound or guarding P\\ Continue on clear liquid diet Continue antibiotics Recheck Labs in am I will advance his diet to soft, low fiber and diabetic. Subjective Interval history since last seen: Patient sleeping comfortably. When I woke him up he told me he still had the same abdominal pain as when he got admitted. No N/V. He is passing flatus and had a soft fomed BM Exam GI Inspection: normal to inspection and obesity Palpation: soft and tender (mild RLQ tenderness. No guarding or rebound) Auscultation: normal bowel sounds Objective Objective Clinical Data: Abnormal lab results 10/12/18 10/12/18 10/12/18 Range/Units 01:50 01:50 03:30 RBC 2.93 L (4.50-6.00) m/cumm Hgb 8.2 L (13.5-17.5) g/dL Hct 26.1 L (40.0-50.0) % MCHC 31.4 L (32.0-36.0) g/dL Absolute Neutrophils 7.44 H (1.2-6.7) k/cumm Absolute Lymphocytes 0.78 L (1.2-3.4) k/cumm Absolute Monocytes 0.72 H (0.11-0.7) k/cumm Chloride 109 H (98-107) mmol/L Anion Gap 12.0 H (3-11) mmol/L Glucose 178 H (70-100) mg/dL Calcium 6.6 L (8.5-10.1) mg/dL Magnesium 1.1 L (1.8-2.4) mg/dL Total Protein 5.0 L (6.4-8.2) g/dL Albumin 2.1 L (3.4-5.0) g/dL Urine Protein 30 H (Negative) mg/dL Urine Blood Moderate H (Negative) Urine RBC 5-10 H (0-2) Vital Signs Temperature 99.0 F 10/12/18 16:03 Temperature Source Tympanic 10/12/18 16:03 Pulse 84 10/12/18 16:03 Pulse Rhythm Regular 10/12/18 07:42 Respiratory Rate 20 10/12/18 16:03 Respiratory Effort Non-Labored 10/12/18 07:42 Respiratory Depth Normal 10/12/18 07:42 Respiratory Pattern Normal 10/12/18 07:42 Blood Pressure 100/60 10/12/18 16:03 Pulse Oximetry 93 L 10/12/18 16:03 Oxygen Delivery Method Nasal Cannula 10/12/18 16:03 Oxygen Flow Rate 4 10/12/18 16:03 Pain Level 10 10/12/18 16:03 Intake & Output 10/11/18 10/12/18 10/12/18 23:59 11:59 23:59 Intake Total 1310.416 / 2637.499 1327.083 / 2637.499 Output Total 650 / 651 Balance 1309.416 / 1986.499 677.083 / 1985.499 Weight 250 lb 10.649 oz Intake: IV 1310.416 / 2187.499 877.083 / 2187.499 Oral 450 / 450 Output: Urine 0 / 650 650 / 650 Stool Other: Urine Color Yellow Dark Veronica Urine Appearance Clear Clear Comment d/c'd old marmolejo and inserted a new one Stool Size Smear Large Stool Characteristics Brown Soft Formed Laboratory Results WBC 9.10 k/cumm (4.4-10.8) 10/12/18 01:50 RBC 2.93 m/cumm (4.50-6.00) L 10/12/18 01:50 Hgb 8.2 g/dL (13.5-17.5) L 10/12/18 01:50 Hct 26.1 % (40.0-50.0) L 10/12/18 01:50 MCV 89.1 fL (80-95) 10/12/18 01:50 MCH 28.0 pg (27.0-33.0) 10/12/18 01:50 MCHC 31.4 g/dL (32.0-36.0) L 10/12/18 01:50 RDW 14.0 % (11.8-14.1) 10/12/18 01:50 Plt Count 228 x1000/uL (130-400) D 10/12/18 01:50 MPV 10.9 fL (8.0-11.0) 10/12/18 01:50 Immature Gran % 0.2 10/12/18 01:50 Neutrophils % 81.8 10/12/18 01:50 Lymphocytes % 8.6 10/12/18 01:50 Monocytes % 7.9 10/12/18 01:50 Eosinophils % 1.3 10/12/18 01:50 Basophils % 0.2 10/12/18 01:50 Absolute Neutrophils 7.44 k/cumm (1.2-6.7) H 10/12/18 01:50 Absolute Lymphocytes 0.78 k/cumm (1.2-3.4) L 10/12/18 01:50 Absolute Monocytes 0.72 k/cumm (0.11-0.7) H 10/12/18 01:50 Absolute Eosinophils 0.12 k/cumm (0.0-0.7) 10/12/18 01:50 Absolute Basophils 0.02 k/cumm (0.0-0.2) 10/12/18 01:50 Sodium 143 mmol/L (136-145) 10/12/18 01:50 Potassium 3.6 mmol/L (3.5-5.1) 10/12/18 01:50 Chloride 109 mmol/L (98-107) H 10/12/18 01:50 Carbon Dioxide 22.0 mmol/L (21.0-32.0) 10/12/18 01:50 Anion Gap 12.0 mmol/L (3-11) H 10/12/18 01:50 BUN 17 mg/dL (7-18) 10/12/18 01:50 Creatinine 0.90 mg/dL (0.70-1.30) 10/12/18 01:50 Estimated GFR/1.73 m2 >= 60.00 (mL/min/1.73m2) 10/12/18 01:50 Glucose 178 mg/dL (70-100) H 10/12/18 01:50 Lactate 1.1 mmol/l (0.6-1.4) 10/12/18 01:50 Calcium 6.6 mg/dL (8.5-10.1) L 10/12/18 01:50 Magnesium 1.1 mg/dL (1.8-2.4) L 10/12/18 01:50 Total Bilirubin 0.2 mg/dL (0.2-1.0) 10/12/18 01:50 AST 15 U/L (15-37) 10/12/18 01:50 ALT 15 U/L (12-78) 10/12/18 01:50 Alkaline Phosphatase 59 U/L (46-116) 10/12/18 01:50 Troponin I < 0.05 ng/mL (0.00-0.06) 10/12/18 01:50 Total Protein 5.0 g/dL (6.4-8.2) L 10/12/18 01:50 Albumin 2.1 g/dL (3.4-5.0) L 10/12/18 01:50 Urine Color Yellow (Yellow) 10/12/18 03:30 Urine Clarity Clear (Clear) 10/12/18 03:30 Urine pH 5.5 (5-8) 10/12/18 03:30 Ur Specific [place] 1.015 (1.005-1.025) 10/12/18 03:30 Urine Protein 30 mg/dL (Negative) H 10/12/18 03:30 Urine Ketones Negative mg/dL (Negative) 10/12/18 03:30 Urine Blood Moderate (Negative) H 10/12/18 03:30 Urine Nitrite Negative (Negative) 10/12/18 03:30 Urine Bilirubin Negative (Negative) 10/12/18 03:30 Urine Urobilinogen 0.2 EU/dL (Up TO 0.2) 10/12/18 03:30 Ur Leukocyte Esterase Negative (Negative) 10/12/18 03:30 Urine RBC 5-10 (0-2) H 10/12/18 03:30 Urine WBC 3-5 HPF (0-5) 10/12/18 03:30 Ur Epithelial Cells Moderate HPF (Negative) 10/12/18 03:30 Urine Crystals Many amorphous HPF (Negative) 10/12/18 03:30 Urine Bacteria Few HPF (Negative) 10/12/18 03:30 Urine Casts Negative LPF (Negative) 10/12/18 03:30 Urine Mucus Heavy (Negative) 10/12/18 03:30 Urine Other Moderate renal (Negative) 10/12/18 03:30 Ur Culture Indicated? No 10/12/18 03:30 Urine Glucose 100 mg/dL (Negative) 10/12/18 03:30
[2018-10-12] MEDS: Acetaminophen 325 MG TAB 650 MG PO (23:15)
[2018-10-13] VITALS (16 sets, daily range): BP systolic 99–118; BP diastolic 50–69; PULSE 66–90; RESP 20–24; TEMP 36.6–38.4; O2SAT 93–98
[2018-10-13] MEDS: metroNIDAZOLE 500 MG/100 ML BAG 100 MG IVPB ×2 (01:59→08:10)
[2018-10-13] MEDS: Lactated Ringers 1,000 ML 125 ML IV (05:10)
[2018-10-13] MEDS: Acetaminophen 325 MG TAB 650 MG PO ×2 (05:19→11:23)
[2018-10-13] MEDS: oxyCODONE 15 MG TAB PO (06:45)
[2018-10-13 07:51] LABS: Absolute Basophil Count 0.01 k/cumm (0.0-0.2); Absolute Eosinophil Count 0.16 k/cumm (0.0-0.7); Absolute Lymphocyte Count 0.59 k/cumm (1.2-3.4); Absolute Monocyte Count 0.62 k/cumm (0.11-0.7); Absolute Neutrophil Count 3.15 k/cumm (1.2-6.7); Basophils % 0.2; Eosinophils % 3.5; Mean Corpuscular Hemoglobin 26.8 pg (27.0-33.0); Mean Corpuscular Volume 89.4 fL (80-95); Mean Platelet Volume 11.4 fL (8.0-11.0); Monocytes % 13.7; Neutrophils % 69.6; Platelet Count 159 x1000/uL (130-400); RBC 2.46 m/cumm (4.50-6.00); RBC Distribution Width 14.1 % (11.8-14.1); White Blood Cell Count 4.53 k/cumm (4.4-10.8)
[2018-10-13 08:05] LABS: Anion Gap 5.4 mmol/L (3-11); BUN 20 mg/dL (7-18); C-Reactive Protein 20.27 mg/dL (0.0-0.3); CO2 27.6 mmol/L (21.0-32.0); CREATININE 1.22 mg/dL (0.70-1.30); Calcium 7.7 mg/dL (8.5-10.1); Chloride 104 mmol/L (98-107); Estimated GFR 58.39 (mL/min/1.73m2); Glucose 172 mg/dL (70-100); Magnesium 1.9 mg/dL (1.8-2.4); Potassium 4.1 mmol/L (3.5-5.1); Sodium 137 mmol/L (136-145)
[2018-10-13] MEDS: Metoprolol CR 50 MG TABCR PO (08:09)
[2018-10-13] MEDS: Pregabalin 100 MG CAP PO ×2 (08:09→13:40)
[2018-10-13] MEDS: Aspirin 81 MG CHEW PO (08:09)
[2018-10-13] MEDS: amLODIPine 10 MG TAB PO (08:09)
[2018-10-13] MEDS: DULoxetine 30 MG CAP 60 MG PO (08:09)
[2018-10-13] MEDS: Omeprazole 20 MG CAPCR PO (08:10)
[2018-10-13] MEDS: Insulin Aspart 300 UNITS/3 ML PEN SC ×2 (08:11→11:56)
[2018-10-13 08:33] LABS: HGB 6.6 g/dL (13.5-17.5)
[2018-10-13 08:35] LABS: Anisocytosis 1+; Diff Comment RBC Morph Reviewed; Hypochromasia 2+
--- NOTE | 2018-10-13 09:24 | PGE_ITS ---
Date of Service Date of service: 10/13/18 Time of Service: 09:24 Assessment and Plan (1) Colitis: Current visit: No Status: Chronic A\\ 73 year old with inflammation of the right colon on CT scan. Worse then on CT scan from 09/22 He is becoming hypotensive and his WBC, PLT and HGB are all dropping He has 1/2 blood cultures positive for Gram Positive Cocci No melena or hematochezia Discussed case with Dr. Zhang at [facility] for possible transfer for services like ICU, GI and IR. P\\ Transfuse 2 units of blood Repeat labs per request from [facility] Will transfer to [facility] once bed available and we have gotten at least 1 unit of blood in. Subjective Interval history since last seen: Mr. Pearson is feeling worse this am. I received a call a little bit ago stating that he was diaphoretic and his Hgb had dropped to 6.6 from 8.3. His PLT have also dropped as has his WBC count. He continues to have mild fevers and his BP has been slowly droping. He is now in the low 100 high 90's systolic. States his abdominal pain is the same as yesterday. No BM's since yesterday. He tells me he is passing flatus. No dizziness Exam Const General: cooperative, no acute distress, diaphoretic and ill appearing Nutritional Appearance: overweight [facility] Head: normocephalic and atraumatic Eyes Pupils: PERRL Resp Effort & Inspection: normal respiratory effort Auscultation: clear to auscultation bilaterally and diminished lung sounds bilaterally in the lower lung lizarraga Cardio Rate: regular rate Rhythm: regular rhythm GI Palpation: soft and tender in the RLQ (+ guarding. No rebound) Auscultation: absent bowel sounds Objective Objective Clinical Data: Abnormal lab results 10/13/18 10/13/18 10/13/18 Range/Units 06:40 06:40 09:00 RBC 2.46 L (4.50-6.00) m/cumm Hgb 6.6 L* (13.5-17.5) g/dL Hct 22.0 L (40.0-50.0) % MCH 26.8 L (27.0-33.0) pg MCHC 30.0 L (32.0-36.0) g/dL MPV 11.4 H (8.0-11.0) fL Absolute Lymphocytes 0.59 L (1.2-3.4) k/cumm BUN 20 H (7-18) mg/dL Glucose 172 H (70-100) mg/dL Calcium 7.7 L (8.5-10.1) mg/dL C-Reactive Protein 20.27 H (0.0-0.3) mg/dL Crossmatch See Detail Vital Signs Temperature 99.5 F 10/13/18 08:43 Temperature Source Tympanic 10/13/18 08:43 Pulse 87 10/13/18 08:43 Pulse Rhythm Regular 10/12/18 19:47 Respiratory Rate 20 10/13/18 08:43 Respiratory Effort 10/13/18 04:00 Respiratory Depth Normal 10/13/18 04:00 Respiratory Pattern Normal 10/13/18 04:00 Blood Pressure 110/64 10/13/18 08:43 Pulse Oximetry 94 L 10/13/18 08:43 Oxygen Delivery Method Nasal Cannula 10/13/18 08:43 Oxygen Flow Rate 3 10/13/18 08:43 Pain Level 8 10/13/18 09:06 Comment 10/13/18 08:43 Intake & Output 10/12/18 10/12/18 10/13/18 11:59 23:59 11:59 Intake Total 1310.416 / 3843.332 2532.916 / 3843.332 1750 / 1750 Output Total 1050 1050 / 1051 700 / 700 Balance 1309.416 / 2792.332 1482.916 / 2792.332 1050 / 1050 Weight 250 lb 10.649 oz Intake: IV 1310.416 / 2733.332 1422.916 / 2733.332 1300 / 1300 Oral 1110 / 1110 450 / 450 Output: Urine 0 / 1050 1050 / 1050 700 / 700 Stool 1 Other: Urine Color Yellow Dark Veronica Light Veronica Urine Appearance Clear Clear Clear Comment d/c'd old marmolejo and inserted a new one Stool Size Smear Large Stool Characteristics Brown Soft Formed Laboratory Results WBC 4.53 k/cumm (4.4-10.8) 10/13/18 06:40 RBC 2.46 m/cumm (4.50-6.00) L 10/13/18 06:40 Hgb 6.6 g/dL (13.5-17.5) L* 10/13/18 06:40 Hct 22.0 % (40.0-50.0) L 10/13/18 06:40 MCV 89.4 fL (80-95) 10/13/18 06:40 MCH 26.8 pg (27.0-33.0) L 10/13/18 06:40 MCHC 30.0 g/dL (32.0-36.0) L 10/13/18 06:40 RDW 14.1 % (11.8-14.1) 10/13/18 06:40 Plt Count 159 x1000/uL (130-400) 10/13/18 06:40 MPV 11.4 fL (8.0-11.0) H 10/13/18 06:40 Immature Gran % 0.0 10/13/18 06:40 Neutrophils % 69.6 10/13/18 06:40 Lymphocytes % 13.0 10/13/18 06:40 Monocytes % 13.7 10/13/18 06:40 Eosinophils % 3.5 10/13/18 06:40 Basophils % 0.2 10/13/18 06:40 Absolute Neutrophils 3.15 k/cumm (1.2-6.7) 10/13/18 06:40 Absolute Lymphocytes 0.59 k/cumm (1.2-3.4) L 10/13/18 06:40 Absolute Monocytes 0.62 k/cumm (0.11-0.7) 10/13/18 06:40 Absolute Eosinophils 0.16 k/cumm (0.0-0.7) 10/13/18 06:40 Absolute Basophils 0.01 k/cumm (0.0-0.2) 10/13/18 06:40 Differential Comment Rbc morph reviewed 10/13/18 06:40 RBC Morphology See below 10/13/18 06:40 Hypochromasia 2+ 10/13/18 06:40 Anisocytosis 1+ 10/13/18 06:40 Sodium 137 mmol/L (136-145) 10/13/18 06:40 Potassium 4.1 mmol/L (3.5-5.1) 10/13/18 06:40 Chloride 104 mmol/L (98-107) 10/13/18 06:40 Carbon Dioxide 27.6 mmol/L (21.0-32.0) 10/13/18 06:40 Anion Gap 5.4 mmol/L (3-11) 10/13/18 06:40 BUN 20 mg/dL (7-18) H 10/13/18 06:40 Creatinine 1.22 mg/dL (0.70-1.30) 10/13/18 06:40 Estimated GFR/1.73 m2 58.39 (mL/min/1.73m2) 10/13/18 06:40 Glucose 172 mg/dL (70-100) H 10/13/18 06:40 Lactate 1.1 mmol/l (0.6-1.4) 10/12/18 01:50 Calcium 7.7 mg/dL (8.5-10.1) L 10/13/18 06:40 Magnesium 1.9 mg/dL (1.8-2.4) 10/13/18 06:40 Total Bilirubin 0.2 mg/dL (0.2-1.0) 10/12/18 01:50 AST 15 U/L (15-37) 10/12/18 01:50 ALT 15 U/L (12-78) 10/12/18 01:50 Alkaline Phosphatase 59 U/L (46-116) 10/12/18 01:50 Troponin I < 0.05 ng/mL (0.00-0.06) 10/12/18 01:50 C-Reactive Protein 20.27 mg/dL (0.0-0.3) H 10/13/18 06:40 Total Protein 5.0 g/dL (6.4-8.2) L 10/12/18 01:50 Albumin 2.1 g/dL (3.4-5.0) L 10/12/18 01:50 Urine Color Yellow (Yellow) 10/12/18 03:30 Urine Clarity Clear (Clear) 10/12/18 03:30 Urine pH 5.5 (5-8) 10/12/18 03:30 Ur Specific [place] 1.015 (1.005-1.025) 10/12/18 03:30 Urine Protein 30 mg/dL (Negative) H 10/12/18 03:30 Urine Ketones Negative mg/dL (Negative) 10/12/18 03:30 Urine Blood Moderate (Negative) H 10/12/18 03:30 Urine Nitrite Negative (Negative) 10/12/18 03:30 Urine Bilirubin Negative (Negative) 10/12/18 03:30 Urine Urobilinogen 0.2 EU/dL (Up TO 0.2) 10/12/18 03:30 Ur Leukocyte Esterase Negative (Negative) 10/12/18 03:30 Urine RBC 5-10 (0-2) H 10/12/18 03:30 Urine WBC 3-5 HPF (0-5) 10/12/18 03:30 Ur Epithelial Cells Moderate HPF (Negative) 10/12/18 03:30 Urine Crystals Many amorphous HPF (Negative) 10/12/18 03:30 Urine Bacteria Few HPF (Negative) 10/12/18 03:30 Urine Casts Negative LPF (Negative) 10/12/18 03:30 Urine Mucus Heavy (Negative) 10/12/18 03:30 Urine Other Moderate renal (Negative) 10/12/18 03:30 Ur Culture Indicated? No 10/12/18 03:30 Urine Glucose 100 mg/dL (Negative) 10/12/18 03:30 Crossmatch See Detail 10/13/18 09:00
[2018-10-13 11:29] LABS: Lactate-non-spesis 0.8 mmol/l (0.6-1.4)
[2018-10-13 11:30] LABS: Abs Immature Grans 0.01 k/cumm (0.0-0.09); Absolute Basophil Count 0.01 k/cumm (0.0-0.2); Absolute Eosinophil Count 0.15 k/cumm (0.0-0.7); Absolute Lymphocyte Count 0.65 k/cumm (1.2-3.4); Absolute Monocyte Count 0.63 k/cumm (0.11-0.7); Absolute Neutrophil Count 3.17 k/cumm (1.2-6.7); Basophils % 0.2; Eosinophils % 3.2; HCT 22.1 % (40.0-50.0); Immature Grans % 0.2; Lymphocytes % 14.1; Mean Corp. HGB Concentration 30.8 g/dL (32.0-36.0); Mean Corpuscular Hemoglobin 27.3 pg (27.0-33.0); Mean Corpuscular Volume 88.8 fL (80-95); Mean Platelet Volume 10.9 fL (8.0-11.0); Monocytes % 13.6; Neutrophils % 68.7; Platelet Count 170 x1000/uL (130-400); RBC 2.49 m/cumm (4.50-6.00); RBC Distribution Width 13.9 % (11.8-14.1); White Blood Cell Count 4.62 k/cumm (4.4-10.8)
[2018-10-13 11:34] LABS: HGB 6.8 g/dL (13.5-17.5)
[2018-10-13] MEDS: Normal Saline 500 ML 30 ML IVPB ×2 (11:39→13:41)
[2018-10-13 11:46] LABS: Anion Gap 6.1 mmol/L (3-11); BUN 19 mg/dL (7-18); CO2 27.9 mmol/L (21.0-32.0); CREATININE 0.95 mg/dL (0.70-1.30); Calcium 7.5 mg/dL (8.5-10.1); Chloride 103 mmol/L (98-107); Glucose 163 mg/dL (70-100); Sodium 137 mmol/L (136-145)
[2018-10-13] MEDS: Normal Saline Flush 10 ML SYR IVP (11:49)
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
[2018-10-13] MEDS: CIPROFLOXACIN 400 MG/200 ML BAG 200 MG IVPB (13:20)
[2018-10-15 22:14] LABS: Saccharomyces cerevisiae IgA <10.0 U; Saccharomyces cervisiae IgG <10.0 U
== END 2018-10-13 14:52 | disposition short-term general hospital (02) ==
LOC: ER 03:32 → MS 04:00
PROVIDERS: Admitting Provider Surgery; Emergency Provider Emergency Medicine; PCP Family Medicine; Visit Provider Surgery
DX: K52.9 Noninfective gastroenteritis and colitis, unspecified (principal); R10.32 Left lower quadrant pain; R78.81 Bacteremia; D64.9 Anemia, unspecified; I95.9 Hypotension, unspecified; R33.9 Retention of urine, unspecified; E11.42 Type 2 diabetes mellitus with diabetic polyneuropathy
CPT/HCPCS: 36415; 36430; 51702; 71250; 80048; 80053; 86850; 86900; 86901; 86920; 87040; 87077; 93005; 96361; 96365; 99217; 99219; 99233; 99239; 99285; NC; 74176; 81003; 81015; 83605; 83735; 84484; 85025; 86140; 86255; 86671; 93010; G0378; J0744; P9016

== ENCOUNTER → 2018-10-19 12:16 | Outpatient (BNVA) | payer MEDICARE, MEDICAID, SELFPAY | PROVIDERS: PCP Family Medicine; Visit Provider Urology | DX: R33.9 Retention of urine, unspecified (principal); E11.42 Type 2 diabetes mellitus with diabetic polyneuropathy | CPT/HCPCS: 99202; 99214 ==

== ENCOUNTER 2018-10-23 18:19 | Emergency (ER) | payer MEDICARE, MEDICAID, SELFPAY ==
[2018-10-23] VITALS (33 sets, daily range): BP systolic 111–170; BP diastolic 51–127; PULSE 88–120; RESP 14–31; TEMP 38.5–39.5; O2SAT 87–96
--- NOTE | 2018-10-23 18:46 | DI.RAD_ITS ---
SYMPTOM/DIAGNOSIS: COUGH, FEBRILE PORTABLE AP CHEST: The lungs are free of infiltrate. A small area of atelectasis involving the right lower lobe is identified. There is no pleural effusion. The heart is not enlarged. SUMMARY: Small area of right lower lobe atelectasis. No evidence of congestive failure or pneumonia.
--- NOTE | 2018-10-23 18:47 | DI.CT_ITS ---
SYMPTOM/DIAGNOSIS: RT SIDED ABD PAIN, RECENT COLITIS, URINARY RETENTION ABDOMEN AND PELVIC CT: The exam was performed without contrast enhancement. Mild dependent subsegmental atelectasis is demonstrated. There is an apparent, very small, right pleural effusion which appears stable. The left pleural effusion has resolved. The liver appears intact. The gallbladder is intact. There are no stones or ductal dilatation. The pancreas is unremarkable without evidence of ductal dilatation. The spleen is normal. The adrenals are normal. Note is made of symmetrical edema about the kidneys. There is no evidence of hydronephrosis. These findings are probably related to medical renal disease. There is no evidence of nephrolithiasis or ureterolithiasis. There are stable benign appearing calcifications adjacent to the distal duodenum or proximal jejunum. Progressive eccentric inflammatory changes in the cecum and ascending colon are apparent. Along the medial aspect of the cecum and ascending colon, there is a 10 by 10 cm. region of fluid collection which contains a small amount of gas and stool. Also a small amount of intermediate density material is noted in this region. It is not certain whether these findings represent ingested material, diluted enteric contrast or subacute blood products. When compared with the prior study, the degree of inflammatory changes have increased and now apparent moderate. The exact position of the cecal wall is difficult to see on the study, however as on the prior examination, a contained perforation of the wall of the colon should certainly be considered. Also the medial wall of the colon is difficult to evaluate. Mesenteric adenopathy around the right colon and cecum is seen. As demonstrated on the prior examination, prominence of the appendix is identified. The appendix is somewhat increased in caliber however there are no definite inflammatory changes. There is no evidence of free air or free fluid in the intraperitoneal space. There is no evidence of an aortic aneurysm. There is no evidence of lymphadenopathy. A marmolejo catheter is demonstrated in a distended bladder where mild asymmetric bladder wall thickening is noted. A small quantity of gas is identified in the colon, likely secondary to instrumentation. The reproductive organs as visualized appear intact. No acute abnormality involving the spine is seen. Note is made of a small fat containing right inguinal hernia. A small fat containing left inguinal hernia is also seen. Increased inflammatory changes around the umbilicus are identified with no fluid collection seen. These findings could represent edema or cellulitis. IMPRESSION: Progressive inflammatory changes in the cecum and ascending colon as noted above. There is suspected progression of the contained perforation or a large intramural collection. It is not clear whether these findings represent progressive colitis or an underlying malignancy. The study is a noncontrast enhanced examination and bowel ischemia is difficult to exclude in this patient. A marmolejo catheter is noted in the distended bladder with asymmetric bladder wall thickening. Note is made of increased inflammatory changes around the umbilicus with no fluid collection. These findings could represent edema or cellulitis. Please see the above discussion.
[2018-10-23] MEDS: ACETAMINOPHEN 1,000 MG/100 ML BTL 400 MG IVPB (18:50)
[2018-10-23 19:02] LABS: Lactate-non-spesis 1.2 mmol/l (0.6-1.4)
--- NOTE | 2018-10-23 19:05 | DI.VRAD_ITS ---
EXAM: XR Chest, 1 View EXAM DATE/TIME: 10/23/2018 18:47 CLINICAL HISTORY: 73 years old, male; Other: Cough, febrile TECHNIQUE: Imaging protocol: XR of the chest, 1 view. COMPARISON: CR XR PORTABLE CHEST AP 09/24/2018 14:26 FINDINGS: Lungs: Low lung volumes. Linear opacities in the right greater than left lung base. No convincing airspace consolidation. Pleural space: No significant pleural effusion. No pneumothorax. Heart/Mediastinum: No cardiomegaly. Diaphragm: Elevated right hemidiaphragm again seen. Bones/joints: No acute fracture. IMPRESSION: Linear bibasilar opacities most consistent with subsegmental atelectasis. No convincing pneumonia on portable imaging. Dictated and Authenticated by: Amelia Brunner MD. Ordering:SIVA Vu MD
[2018-10-23 19:06] LABS: Abs Immature Grans 0.02 k/cumm (0.0-0.09); Absolute Basophil Count 0.01 k/cumm (0.0-0.2); Absolute Lymphocyte Count 1.01 k/cumm (1.2-3.4); Absolute Monocyte Count 0.69 k/cumm (0.11-0.7); Basophils % 0.1; Eosinophils % 0.9; HCT 29.2 % (40.0-50.0); HGB 9.1 g/dL (13.5-17.5); Immature Grans % 0.2; Lymphocytes % 9.1; Mean Corp. HGB Concentration 31.2 g/dL (32.0-36.0); Mean Corpuscular Hemoglobin 27.1 pg (27.0-33.0); Mean Corpuscular Volume 86.9 fL (80-95); Mean Platelet Volume 10.7 fL (8.0-11.0); Monocytes % 6.2; Neutrophils % 83.5; Platelet Count 239 x1000/uL (130-400); RBC 3.36 m/cumm (4.50-6.00); RBC Distribution Width 14.9 % (11.8-14.1); White Blood Cell Count 11.14 k/cumm (4.4-10.8)
[2018-10-23 19:26] LABS: ALT 29 U/L (12-78); AST 20 U/L (15-37); Albumin 2.9 g/dL (3.4-5.0); Alkaline Phosphatase 70 U/L (46-116); Anion Gap 10.1 mmol/L (3-11); BUN 9 mg/dL (7-18); Bilirubin, Total 0.4 mg/dL (0.2-1.0); CO2 26.9 mmol/L (21.0-32.0); CREATININE 0.89 mg/dL (0.70-1.30); Calcium 8.3 mg/dL (8.5-10.1); Chloride 101 mmol/L (98-107); Glucose 128 mg/dL (70-100); Lipase 69 U/L (73-393); NT-proBNP 316 pg/mL; Potassium 3.9 mmol/L (3.5-5.1); Sodium 138 mmol/L (136-145); Total Protein 6.1 g/dL (6.4-8.2)
--- NOTE | 2018-10-23 19:33 | ED.GENADUL_ITS ---
Discharge Plan Disposition Patient Disposition: OMARI CARDONA ([facility]) Condition: Serious Discharge Details Chief Complaint: Fever Clinical Impression: Colitis, Acute urinary retention, Fever Primary Care Provider: Diana Murdock ED Provider: Horace Glynn Home Meds and New Rx's Prescriptions: No Action (DME) Dexcom G4 Hospital Staff Pharmacist misc See Dose Instructions .ROUTE .MEDSUPPLY Qty: 1 RF: 0 (DME) Dexcom G5-G4 Sensor device See Dose Instructions .ROUTE .MEDSUPPLY Qty: 3 RF: 12 (DME) Dexcom G4 Transmitter device See Dose Instructions .ROUTE .MEDSUPPLY Qty: 1 RF: 0 atorvastatin 80 mg tablet 80 mg PO DAILY Qty: 90 RF: 11 Lantus Solostar U-100 Insulin 100 unit/mL (3 mL) insulin pen 60 unit subcut BID RF: 0 oxycodone 15 mg tablet 15 mg PO TID PRN MDD 3 Qty: 70 RF: 0 oxycodone [OxyContin] 30 mg tablet,oral only,ext.rel.12 hr 30 mg PO TID MDD 3 Qty: 70 RF: 0 multivitamin 1 EACH tablet 1 tab PO DAILY RF: 0 aspirin [Aspirin Low-Strength] 81 MG tablet,chewable 1 tab PO DAILY RF: 0 NARCOTIC CONTRACT RF: 0 (DME) Blood Glucose Test 1 EACH strip 1 ea Miscellaneous AC & HS Qty: 400 RF: 4 (DME) pen needle, diabetic 31 gauge x 1/3 needle 1 ea Miscellaneous AC & HS Qty: 360 RF: 4 (DME) blood-glucose meter misc See Dose Instructions .Route .MEDSUPPLY Qty: 1 RF: 0 (DME) Blood Glucose Test strip See Dose Instructions .Route .MEDSUPPLY Qty: 400 RF: 5 (DME) lancets 25 gauge misc See Dose Instructions .Route .MEDSUPPLY Qty: 100 RF: 4 Lyrica 100 mg capsule 100 mg PO TID Qty: 270 RF: 3 nitroglycerin 0.4 mg tablet, sublingual 0.4 mg SL ONCE Qty: 25 RF: 1 polyethylene glycol 3350 17 gram powder in packet 17 gm PO DAILY PRN (Reason: constipation) Qty: 90 RF: 4 furosemide 20 mg tablet 20 mg PO DAILY Qty: 90 RF: 11 metoprolol succinate 50 mg tablet extended release 24 hr 50 mg PO DAILY Qty: 90 RF: 3 amlodipine 10 mg tablet 10 mg PO QAM Qty: 90 RF: 12 duloxetine [Cymbalta] 60 mg capsule,delayed release(DR/EC) 60 mg PO DAILY Qty: 90 RF: 12 nortriptyline 50 mg capsule 50 mg PO HS Qty: 90 RF: 12 omeprazole 20 mg capsule,delayed release(DR/EC) 20 mg PO DAILY Qty: 90 RF: 12 sennosides [Senokot] 8.6 mg tablet 17.2 mg PO QPM PRN (Reason: constipation) Qty: 180 RF: 0 Humalog KwikPen Insulin 100 unit/mL insulin pen See Rx Instructions subcut AC Qty: 150 RF: 5 lidocaine 5 % gel See Rx Instructions topical TID PRN Qty: 30 RF: 3 silodosin [Rapaflo] 8 mg capsule 8 mg PO DAILY Qty: 10 RF: 0 cholestyramine-aspartame 4 gram powder 4 gm PO BID Qty: 231 RF: 4 docusate sodium [Colace] 100 mg Capsule 100 mg PO BID Qty: 60 RF: 0 levofloxacin 500 mg tablet 500 mg PO DAILY Qty: 9 RF: 0 nystatin 100,000 unit/gram Powder 1 applic topical TID Qty: 15 RF: 0 Medical Decision Making This is a 73-year-old male with an extensive past medical history of diabetes, cholesterol, hypertension, obesity, who was recently here and admitted for colitis, and subsequently transferred to the [facility] for further management in the intensive care unit. He was eventually discharged, kept on Cefpodoxime and Flagyl, had urology follow-up with his Webb catheter was removed. He presents today for evaluation of right-sided abdominal pain and notable decrease in urination. Exam demonstrates over 2 L of urine in his bladder, notable right lower quadrant abdominal tenderness in the setting of being febrile and tachycardic. Webb catheter was placed and 1300 mL came out, the Webb was immediately then clamped. CT scan was ordered and shows evidence of eccentric inflammatory changes in the cecum and ascending colon with suspicion for progression of a contained perforation or large intramural collection. Patient will concern for malignancy. Chest x-ray shows no evidence of significant pneumonia. Laboratory work-up demonstrates elevated white count minimally, mild left shift, renal function stable, lactate is 1.2. Lipase is normal. With the patient's fever, notable colitis that appears to be worsening, broad-spectrum antibiotics of vancomycin and Zosyn were started. We did contact Dr. Fountain of surgery, she feels that this case is better fit for transfer to the [facility] and inappropriate for admission here. Will contact them for potential transfer. 10:05 PM The case was discussed with Dr. Carlson from medicine, Dr. gonzalez from acute care surgery in the ER doctor Dr. Felipe. Per request of acute [facility] surgery Dr. gonzalez he would like the patient transferred to the ED for surgical evaluation and potential bed placement. At this time the patient's heart rate has improved to the mid 90s, blood pressure is stable, antibiotics have been given, and pain is controlled with morphine. Fever is improving. I have extensively reviewed the treatment plan with the patient. I have addressed all patient concerns at this time. I have also discussed the plan with the admitting physician and they agree with the current assessment and plan and have agreed to assume responsibility for the patient. All parties demonstrate verbal understanding and agreement with our assessment and plan at this time. At time of transfer the patient was reassessed and continued to demonstrate current medical stability. No signs of acute respiratory distress requiring intubation, hemodynamic instability requiring pressor support, or rapidly declining mental status. The patient is stable for transport. FINDINGS: Lungs: Low lung volumes. Linear opacities in the right greater than left lung base. No convincing airspace consolidation. Pleural space: No significant pleural effusion. No pneumothorax. Heart/Mediastinum: No cardiomegaly. Diaphragm: Elevated right hemidiaphragm again seen. Bones/joints: No acute fracture. IMPRESSION: Linear bibasilar opacities most consistent with subsegmental atelectasis. No convincing pneumonia on portable imaging. Dictated and Authenticated by: Amelia Brunner MD. Ordering:SIVA Vu MD FINDINGS: Lungs: Mild dependent subsegmental atelectasis. Pleural space: Trace right pleural effusion appears stable. Left pleural effusion has resolved. Liver: No hepatic masses on noncontrast imaging. Gallbladder and bile ducts: No calcified stones. No ductal dilation. Pancreas: No pancreatic ductal dilation. Spleen: No splenomegaly or focal lesions. Adrenals: No mass. Kidneys and ureters: Symmetric edema around the kidneys without obstruction, probably related to medical renal disease. No nephrolithiasis or collecting system obstruction. Stomach and bowel: Stable benign calcification adjacent to the distal duodenum or proximal jejunum. Progressive eccentric inflammatory changes in the cecum/ascending colon. Along the medial aspect of the cecum and ascending colon is a now approximately 10 x 10 cm region of fluid, small amount of gas and stool and/or other debris. There is a small amount of intermediate density material in this region, unclear if this represents ingested material, diluted enteric contrast or subacute blood products. The degree of surrounding inflammatory changes have increased, now moderate. The exact position of the wall of the cecum is challenging to decipher on the study however as on the previous study a contained perforation of one wall of the colon should be considered. The contiguity of the colonic wall is difficult to establish medially. No acute pathology in the remainder of the colon. No acute pathology in the small bowel. Mesenteric adenopathy around the right colon and cecum. Appendix: As on the previous study the appendix is prominent in caliber however without associated inflammatory changes. Intraperitoneal space: No free air. No significant fluid collection. Vasculature: No abdominal aortic aneurysm. Lymph nodes: No significantly enlarged lymph nodes. Bladder: Webb catheter in moderately distended urinary bladder with asymmetric but mild wall thickening. Presumably iatrogenic gas in the urinary bladder. Reproductive: Unremarkable as visualized. Bones/joints: Degenerative changes in the spine. No acute fracture or subluxation. Soft tissues: Small fat-containing right inguinal hernia. Small fat-containing left inguinal hernia. Increased inflammatory changes around the umbilicus with no fluid collection. Question edema or cellulitis. IMPRESSION: 1. Progressive eccentric inflammatory changes in the cecum/ascending colon as described. Suspected progression of a contained perforation or large intramural collection. Unclear if this relates to progressive colitis or underlying malignancy. On noncontrast imaging bowel ischemia is very difficult to exclude. 2. Webb catheter in moderately distended urinary bladder with asymmetric but mild wall thickening. 3. Increased inflammatory changes around the umbilicus with no fluid collection. Question edema or cellulitis. 4. Additional findings as described. Thank you for allowing us to participate in the care of your patient. Dictated and Authenticated by: Amelia Brunner MD HPI General Date/Time Provider Initiated Documentation: 10/23/18 18:38 . HPI Narrative: This is a 73-year-old male with a past medical history of diabetes, hypertension, high cholesterol, chronic urinary retention, and recent colitis, who was recently discharged from the [facility] after prolonged stay here for colitis and urinary retention. He subsequently followed up recently with Dr. Sullivan at which point he had his Webb catheter removed 4 days ago. Since then he has been peeing only a small amount daily, however over the last 24 to 48 hours he has noticed a notable decrease in energy, fever, and notable right-sided abdominal pain and distention. He denies any burning with urination. He denies any vomiting or diarrhea at this time. He denies any chest pain, shortness of breath or chest tightness. He is a poor historian. He has no other complaints at this time. He denies any other modifying factors. Of note he is currently on Flagyl and Cefpodoxime, as well as Silodosin and as prescribed by Dr. Sullivan. Related Data Home Medications Medication Instructions Recorded Confirmed aspirin [Aspirin Low-Strength] 1 tab PO DAILY tab.chew 07/13/12 10/12/18 multivitamin 1 tab PO DAILY 07/13/12 10/12/18 Narcotic Contract 01/23/13 10/02/18 Blood Glucose Test #400 strip 08/03/17 10/02/18 pen needle, diabetic 31 gauge x #360 ndl 12/22/17 10/02/1804/12 blood sugar diagnostic #400 each 01/19/18 10/02/18 blood-glucose meter #1 each 01/19/18 10/02/18 lancets 25 gauge #100 each 01/19/18 10/02/18 atorvastatin 80 mg tablet 80 mg PO DAILY #90 tab-cap 02/22/18 10/12/18 blood-glucose meter,continuous #1 each 02/22/18 10/02/18 blood-glucose sensor #3 each 02/22/18 10/02/18 blood-glucose transmitter #1 each 02/22/18 10/02/18 pregabalin 100 mg capsule 100 mg PO TID #270 tab-cap 03/18/18 10/12/18 nitroglycerin 0.4 mg sublingual 0.4 mg SL ONCE #25 tab 03/23/18 10/12/18 tablet polyethylene glycol 3350 17 gram 17 gm PO DAILY PRN #90 each 07/10/18 10/12/18 oral powder packet amlodipine 10 mg tablet 10 mg PO QAM #90 tab 07/16/18 10/12/18 duloxetine 60 mg capsule,delayed 60 mg PO DAILY #90 tab-cap 07/16/18 10/12/18 release furosemide 20 mg tablet 20 mg PO DAILY #90 tab-cap 07/16/18 10/12/18 metoprolol succinate 50 mg 50 mg PO DAILY #90 tab 07/16/18 10/12/18 tablet,extended release 24 hr nortriptyline 50 mg capsule 50 mg PO HS #90 tab 07/16/18 10/12/18 omeprazole 20 mg capsule,delayed 20 mg PO DAILY #90 tab-cap 07/16/18 10/12/18 release sennosides 8.6 mg tablet 17.2 mg PO QPM PRN #180 tab 07/16/18 10/12/18 insulin glargine 100 unit/mL (3 60 unit SUBCUT BID ml 08/06/18 10/12/18 mL) subcutaneous pen oxycodone 15 mg tablet 15 mg PO TID PRN #70 tab MDD 3 08/06/18 10/12/18 oxycodone 30 mg tablet,crush 30 mg PO TID #70 tab MDD 3 08/06/18 10/12/18 resistant,extended release 12 hr insulin lispro 100) 100 unit/mL See Rx Instructions SUBCUT AC #150 08/24/18 10/12/18 subcutaneous pen ml docusate sodium [Colace] 100 mg PO BID #60 cap 09/26/18 10/12/18 levofloxacin 500 mg PO DAILY #9 tab 09/26/18 10/12/18 nystatin 1 applic TOPICAL TID #15 gm 09/26/18 10/12/18 lidocaine 5 % topical gel See Rx Instructions TOPICAL TID 10/02/18 10/12/18 PRN #30 gm silodosin 8 mg capsule 8 mg PO DAILY #10 cap 10/09/18 10/12/18 cholestyramine-aspartame 4 gram 4 gm PO BID #231 gm 10/18/18 oral powder Previous Rx's Medication Instructions Recorded Blood Glucose Test #400 strip 08/03/17 pen needle, diabetic 31 gauge x #360 ndl 12/22/1704/12 blood sugar diagnostic #400 each 01/19/18 blood-glucose meter #1 each 01/19/18 lancets 25 gauge #100 each 01/19/18 atorvastatin 80 mg tablet 80 mg PO DAILY #90 tab-cap 02/22/18 blood-glucose meter,continuous #1 each 02/22/18 blood-glucose sensor #3 each 02/22/18 blood-glucose transmitter #1 each 02/22/18 pregabalin 100 mg capsule 100 mg PO TID #270 tab-cap 03/18/18 nitroglycerin 0.4 mg sublingual 0.4 mg SL ONCE #25 tab 03/23/18 tablet polyethylene glycol 3350 17 gram 17 gm PO DAILY PRN #90 each 07/10/18 oral powder packet amlodipine 10 mg tablet 10 mg PO QAM #90 tab 07/16/18 duloxetine 60 mg capsule,delayed 60 mg PO DAILY #90 tab-cap 07/16/18 release furosemide 20 mg tablet 20 mg PO DAILY #90 tab-cap 07/16/18 metoprolol succinate 50 mg 50 mg PO DAILY #90 tab 07/16/18 tablet,extended release 24 hr nortriptyline 50 mg capsule 50 mg PO HS #90 tab 07/16/18 omeprazole 20 mg capsule,delayed 20 mg PO DAILY #90 tab-cap 07/16/18 release sennosides 8.6 mg tablet 17.2 mg PO QPM PRN #180 tab 07/16/18 oxycodone 15 mg tablet 15 mg PO TID PRN #70 tab MDD 3 08/06/18 oxycodone 30 mg tablet,crush 30 mg PO TID #70 tab MDD 3 08/06/18 resistant,extended release 12 hr insulin lispro 100) 100 unit/mL See Rx Instructions SUBCUT AC #150 08/24/18 subcutaneous pen ml docusate sodium [Colace] 100 mg PO BID #60 cap 09/26/18 levofloxacin 500 mg PO DAILY #9 tab 09/26/18 nystatin 1 applic TOPICAL TID #15 gm 09/26/18 lidocaine 5 % topical gel See Rx Instructions TOPICAL TID 10/02/18 PRN #30 gm silodosin 8 mg capsule 8 mg PO DAILY #10 cap 10/09/18 cholestyramine-aspartame 4 gram 4 gm PO BID #231 gm 10/18/18 oral powder Allergies Allergy/AdvReac Type Severity Reaction Status Date / Time VIKY Inhibitors AdvReac Cough Verified 10/12/18 00:40 lorazepam AdvReac Diarrhea Verified 10/12/18 00:40 metformin AdvReac Diarrhea Verified 10/12/18 00:40 General Stated Complaint: Fever IVAN: 3 Review of Systems Review of Systems All systems reviewed & are unremarkable except as noted in HPI and below PFSH Social History Smoking/Tobacco Use Status: Former Tobacco Use Alcohol Intake: current Alcohol Intake frequency: holidays/special occasions only Drug use: Never Substance use type: does not use Do you feel safe at home: Yes Do you feel safe in your relationship?: Yes Exam Narrative Exam Narrative: 1.Const: Well-nourished, Well-developed, appearing stated age 2.Eyes: PERRL, no conjunctival injection, and symmetrical lids. 3.ENT: Atraumatic external nose and ears. Moist MM. Neck: Symmetric, trachea midline, No thyromegaly. 4.CVS: +S1/S2, No murmurs or gallops. Peripheral pulses 2+ and equal in all extremities. Brisk capillary refill in all extremities. 5.RESP: Unlabored respiratory effort. Clear to auscultation bilaterally. No wheezes rales or rhonchi 6.GI: Notably distended abdomen, notable reproducible tenderness in the right lower and suprapubic region. Notable edema of the scrotum, no scrotal or testicular tenderness. 7.MSK: Normocephalic/Atraumatic, Extremities w/o deformity or ttp No cyanosis or clubbing, Normal movement of all extremities 8.Skin: Warm, Dry. No rashes or lesions. 9.Neuro: cow tender II-XII grossly intact. Sensation grossly intact, no focal neurologic deficits. 10.Psych: (AAO) x3. Appropriate mood and affect Course Vital Signs Temperature 38.8 C H 10/23/18 18:28 Pulse 120 H 10/23/18 18:28 Blood Pressure 170/111 H 10/23/18 18:28 Pulse Oximetry 93 L 10/23/18 18:28 Temperature 38.8 C H 10/23/18 18:28 Temperature Source Tympanic 10/23/18 18:28 Pulse 120 H 10/23/18 18:28 Blood Pressure 170/111 H 10/23/18 18:28 Blood Pressure Position Sitting 10/23/18 18:28 Pulse Oximetry 93 L 10/23/18 18:28 Oxygen Delivery Method Room Air 10/23/18 18:28 Oxygen Flow Rate 0 10/23/18 18:28 Lab/Test Results Lab/Test Results: 10/23/18 18:46 Blood Blood Culture - Pending 10/23/18 18:46 Blood Blood Culture - Pending Laboratory Tests Range/Units 10/23/18 10/23/18 10/23/18 18:58 18:58 18:58 WBC (4.4-10.8) k/cumm 11.14 H RBC (4.50-6.00) m/cumm 3.36 L Hgb (13.5-17.5) g/dL 9.1 L Hct (40.0-50.0) % 29.2 L MCV (80-95) fL 86.9 MCH (27.0-33.0) pg 27.1 MCHC (32.0-36.0) g/dL 31.2 L RDW (11.8-14.1) % 14.9 H Plt Count (130-400) x1000/uL 239 MPV (8.0-11.0) fL 10.7 Immature Gran % 0.2 Neutrophils % 83.5 Lymphocytes % 9.1 Monocytes % 6.2 Eosinophils % 0.9 Basophils % 0.1 Absolute Neutrophils (1.2-6.7) k/cumm 9.30 H Absolute Lymphocytes (1.2-3.4) k/cumm 1.01 L Absolute Monocytes (0.11-0.7) k/cumm 0.69 Absolute Eosinophils (0.0-0.7) k/cumm 0.10 Absolute Basophils (0.0-0.2) k/cumm 0.01 Sodium (136-145) mmol/L 138 Potassium (3.5-5.1) mmol/L 3.9 Chloride (98-107) mmol/L 101 Carbon Dioxide (21.0-32.0) mmol/L 26.9 Anion Gap (3-11) mmol/L 10.1 BUN (7-18) mg/dL 9 Creatinine (0.70-1.30) mg/dL 0.89 Estimated GFR/1.73 m2 (mL/min/1.73m2) >= 60.00 Glucose (70-100) mg/dL 128 H Lactate (0.6-1.4) mmol/l 1.2 Calcium (8.5-10.1) mg/dL 8.3 L Total Bilirubin (0.2-1.0) mg/dL 0.4 AST (15-37) U/L 20 ALT (12-78) U/L 29 Alkaline Phosphatase (46-116) U/L 70 NT-Pro-B Natriuret Pep ( - 299) pg/mL 316 H Total Protein (6.4-8.2) g/dL 6.1 L Albumin (3.4-5.0) g/dL 2.9 L Lipase (73-393) U/L 69 L
--- NOTE | 2018-10-23 20:10 | DI.VRAD_ITS ---
Addendum created by Amelia Brunner MD on 10/23/2018 8:13:49 PM EDT THIS REPORT CONTAINS FINDINGS THAT MAY BE CRITICAL TO PATIENT CARE. The pertinent findings were verbally communicated via telephone conference with VANESSA CONNOR at 20:13 EDT on 10/23/2018. The findings were acknowledged and understood. Initial report created on 10/23/2018 8:10:17 PM EDT EXAM: CT Abdomen and Pelvis Without Contrast EXAM DATE/TIME: 10/23/2018 18:48 CLINICAL HISTORY: 73 years old, male; Abdominal pain; Other: Right sided abd pain, recent colitis, urinary rete TECHNIQUE: Imaging protocol: Axial computed tomography images of the abdomen and pelvis without contrast. Coronal and sagittal reformatted images were created and reviewed. Radiation optimization: All CT scans at this facility use at least one of these dose optimization techniques: automated exposure control; mA and/or kV adjustment per patient size (includes targeted exams where dose is matched to clinical indication); or iterative reconstruction. COMPARISON: CT CHEST/ABD/PEL WO 10/12/2018 02:07 FINDINGS: Lungs: Mild dependent subsegmental atelectasis. Pleural space: Trace right pleural effusion appears stable. Left pleural effusion has resolved. Liver: No hepatic masses on noncontrast imaging. Gallbladder and bile ducts: No calcified stones. No ductal dilation. Pancreas: No pancreatic ductal dilation. Spleen: No splenomegaly or focal lesions. Adrenals: No mass. Kidneys and ureters: Symmetric edema around the kidneys without obstruction, probably related to medical renal disease. No nephrolithiasis or collecting system obstruction. Stomach and bowel: Stable benign calcification adjacent to the distal duodenum or proximal jejunum. Progressive eccentric inflammatory changes in the cecum/ascending colon. Along the medial aspect of the cecum and ascending colon is a now approximately 10 x 10 cm region of fluid, small amount of gas and stool and/or other debris. There is a small amount of intermediate density material in this region, unclear if this represents ingested material, diluted enteric contrast or subacute blood products. The degree of surrounding inflammatory changes have increased, now moderate. The exact position of the wall of the cecum is challenging to decipher on the study however as on the previous study a contained perforation of one wall of the colon should be considered. The contiguity of the colonic wall is difficult to establish medially. No acute pathology in the remainder of the colon. No acute pathology in the small bowel. Mesenteric adenopathy around the right colon and cecum. Appendix: As on the previous study the appendix is prominent in caliber however without associated inflammatory changes. Intraperitoneal space: No free air. No significant fluid collection. Vasculature: No abdominal aortic aneurysm. Lymph nodes: No significantly enlarged lymph nodes. Bladder: Webb catheter in moderately distended urinary bladder with asymmetric but mild wall thickening. Presumably iatrogenic gas in the urinary bladder. Reproductive: Unremarkable as visualized. Bones/joints: Degenerative changes in the spine. No acute fracture or subluxation. Soft tissues: Small fat-containing right inguinal hernia. Small fat-containing left inguinal hernia. Increased inflammatory changes around the umbilicus with no fluid collection. Question edema or cellulitis. IMPRESSION: 1. Progressive eccentric inflammatory changes in the cecum/ascending colon as described. Suspected progression of a contained perforation or large intramural collection. Unclear if this relates to progressive colitis or underlying malignancy. On noncontrast imaging bowel ischemia is very difficult to exclude. 2. Webb catheter in moderately distended urinary bladder with asymmetric but mild wall thickening. 3. Increased inflammatory changes around the umbilicus with no fluid collection. Question edema or cellulitis. 4. Additional findings as described. Dictated and Authenticated by: Amelia Brunner MD. Ordering:SIVA Vu MD
[2018-10-23] MEDS: PIPERACILLIN/TAZO 3.375 GM in Normal Saline 50 ML IVPB (20:33)
[2018-10-23] MEDS: MORPHine 10 MG/ML VIAL 4 MG IVP (20:34)
[2018-10-23 20:44] LABS: Bilirubin Negative (Negative); Blood Negative (Negative); Clarity Clear (Clear); Glucose Negative (Negative); Ketones Negative (Negative); Leukocyte Esterase Negative (Negative); Nitrite Negative (Negative); Specific Gravity 1.015 (1.005-1.025); Urobilinogen 0.2 EU/dL (Up TO 0.2)
[2018-10-23] MEDS: VANCOMYCIN 2,000 MG in Normal Saline 500 ML 333.3333 MG IVPB (21:30)
[2018-10-23] MEDS: Ketorolac 30 MG/ML VIAL IVP (21:51)
--- NOTE | 2018-10-23 22:24 | NUR.NOTE ---
Nursing Note: Patients SPO2 was WNL during entire stay, captured VS brought foward low SPO2 though it was a poor connection. Provider instructed this investigative writer after initial catheter insertion to clamp and release 500 cc of urine every 30 min.
== END 2018-10-23 22:20 | disposition short-term general hospital (02) ==
PROVIDERS: Emergency Provider Student in an Organized Health Care Education/Training Program; PCP Family Medicine
DX: K52.9 Noninfective gastroenteritis and colitis, unspecified (principal); R33.9 Retention of urine, unspecified; R00.0 Tachycardia, unspecified; R50.9 Fever, unspecified; I10 Essential (primary) hypertension; E11.9 Type 2 diabetes mellitus without complications; Z79.4 Long term (current) use of insulin
CPT/HCPCS: 36415; 80053; 83690; 87040; 93005; 96365; 96366; 96367; 96375; 99285; 71045; 74176; 81003; 83605; 83880; 85025; 93010; J0131; J1885; J2270; J2543

== ENCOUNTER 2018-11-07 15:29 | Outpatient (REF) | payer MEDICARE, MEDICAID, SELFPAY ==
[2018-11-07 13:17] LABS: Bilirubin Small (Negative); Blood Small (Negative); Clarity Cloudy (Clear); Glucose Negative (Negative); Ketones Trace mg/dL (Negative); Leukocyte Esterase Small (Negative); Nitrite Negative (Negative); Specific Gravity >= 1.030 (1.005-1.025); Urobilinogen 0.2 EU/dL (Up TO 0.2)
[2018-11-07 13:38] LABS: Bacteria Packed HPF (Negative); C & S Indicated? C&S Done As Ordered; WBC >50 HPF (0-5)
== END 2018-11-07 15:49 ==
LOC: LBN 15:29
PROVIDERS: PCP Family Medicine; Visit Provider Family Medicine
DX: Z87.440 Personal history of urinary (tract) infections (principal); R82.90 Unspecified abnormal findings in urine; N39.0 Urinary tract infection, site not specified
CPT/HCPCS: 87077; 81003; 81015; 87086; 87186

== ENCOUNTER 2018-11-16 03:48 | Outpatient (RCR) | payer MEDICARE, MEDICAID, SELFPAY ==
[2018-11-16] VITALS (7 sets, daily range): BP systolic 106–127; BP diastolic 61–75; PULSE 64–70; RESP 18; TEMP 36.3–36.6; O2SAT 96–98
[2018-11-16] MEDS: Normal Saline Flush 10 ML SYR IVP ×2 (10:20→10:22)
[2018-11-16] MEDS: Acetaminophen 500 MG TAB 1000 MG PO (10:21)
[2018-11-16] MEDS: diphenhydrAMINE 25 MG CAP PO (10:21)
[2018-11-16] MEDS: inFLIXimab 600 MG in Normal Saline 250 ML 125 MG IVPB (10:55)
== END 2018-12-08 23:59 | disposition home or self-care (01) ==
LOC: INF 03:48
PROVIDERS: PCP Family Medicine; Visit Provider Internal Medicine
DX: K50.80 Crohn's disease of both small and large intestine without complications (principal)
CPT/HCPCS: 96365; 96366; J1745

== ENCOUNTER 2018-11-20 08:46 | Outpatient (CLI) | payer MEDICARE, MEDICAID, SELFPAY ==
[2018-11-20 11:57] LABS: Absolute Basophil Count 0.02 k/cumm (0.0-0.2); Absolute Lymphocyte Count 1.79 k/cumm (1.2-3.4); Absolute Monocyte Count 0.37 k/cumm (0.11-0.7); Absolute Neutrophil Count 2.79 k/cumm (1.2-6.7); Basophils % 0.4; Eosinophils % 5.7; HCT 30.4 % (40.0-50.0); HGB 8.9 g/dL (13.5-17.5); Mean Corp. HGB Concentration 29.3 g/dL (32.0-36.0); Mean Corpuscular Hemoglobin 24.9 pg (27.0-33.0); Mean Corpuscular Volume 84.9 fL (80-95); Mean Platelet Volume 12.4 fL (8.0-11.0); Neutrophils % 52.9; Platelet Count 154 x1000/uL (130-400); RBC 3.58 m/cumm (4.50-6.00); RBC Distribution Width 14.9 % (11.8-14.1); White Blood Cell Count 5.27 k/cumm (4.4-10.8)
[2018-11-20 12:31] LABS: Hemoglobin A1C 5.9 % (4.5-6.2)
[2018-11-20 12:46] LABS: ALT 19 U/L (12-78); AST 15 U/L (15-37); Albumin 3.3 g/dL (3.4-5.0); Alkaline Phosphatase 84 U/L (46-116); Anion Gap 7.7 mmol/L (3-11); BUN 12 mg/dL (7-18); Bilirubin, Total 0.3 mg/dL (0.2-1.0); CO2 29.3 mmol/L (21.0-32.0); CREATININE 0.82 mg/dL (0.70-1.30); Calcium 8.2 mg/dL (8.5-10.1); Chloride 105 mmol/L (98-107); Glucose 108 mg/dL (70-100); Potassium 4.1 mmol/L (3.5-5.1); Sodium 142 mmol/L (136-145); Total Protein 6.2 g/dL (6.4-8.2)
[2018-11-20 13:21] LABS: Anisocytosis 1+; Diff Comment RBC Morph Reviewed; Hypochromasia 2+; Polychromasia Present
[2018-11-20 13:22] LABS: Poikilocytes 1+
[2018-11-20 19:42] LABS: Iron 25 ug/dL (50-175)
[2018-11-23 11:10] LABS: Ferritin 22 ng/mL (8-388)
== END 2018-11-20 09:06 ==
PROVIDERS: PCP Family Medicine; Visit Provider Family Medicine
DX: E11.42 Type 2 diabetes mellitus with diabetic polyneuropathy (principal); R33.9 Retention of urine, unspecified; D64.9 Anemia, unspecified; K50.90 Crohn's disease, unspecified, without complications
CPT/HCPCS: 36415; 80053; 99212; 99213; 82728; 83036; 83540; 85025

== ENCOUNTER → 2018-11-29 08:38 | Outpatient (BNVA) | payer MEDICARE, MEDICAID, SELFPAY | PROVIDERS: PCP Family Medicine; Visit Provider Urology | DX: R33.9 Retention of urine, unspecified (principal); Z96.0 Presence of urogenital implants; E11.42 Type 2 diabetes mellitus with diabetic polyneuropathy; Z79.84 Long term (current) use of oral hypoglycemic drugs | CPT/HCPCS: 51728; 51784; 51797; 99211 ==

== ENCOUNTER 2018-12-12 00:59 | Outpatient (RCR) | payer MEDICARE, MEDICAID, SELFPAY ==
[2018-12-12 10:27] VITALS: BP 187/89; PULSE 81; RESP 18; TEMP 36.2; O2SAT 100
[2018-12-12] MEDS: diphenhydrAMINE 25 MG CAP PO (10:36)
[2018-12-12] MEDS: Normal Saline Flush 10 ML SYR IVP (10:36)
[2018-12-12] MEDS: Acetaminophen 500 MG TAB 1000 MG PO (10:36)
[2018-12-12] MEDS: inFLIXimab 600 MG in Normal Saline 250 ML 125 MG IVPB (11:12)
[2018-12-12 11:13] VITALS: BP 142/78; PULSE 71; RESP 17; TEMP 36.4; O2SAT 98
[2018-12-12 11:34] VITALS: BP 125/69; PULSE 70; RESP 18; TEMP 36.8; O2SAT 98
[2018-12-12 11:51] VITALS: BP 132/76; PULSE 69; RESP 18; TEMP 37; O2SAT 97
[2018-12-12 12:30] VITALS: BP 133/75; PULSE 66; RESP 18; TEMP 36.5; O2SAT 98
[2018-12-12 13:20] VITALS: BP 164/68; PULSE 65; RESP 18; TEMP 36.8; O2SAT 98
== END 2019-01-07 23:59 | disposition home or self-care (01) ==
LOC: INF 00:59
PROVIDERS: PCP Family Medicine; Visit Provider Internal Medicine
DX: K50.80 Crohn's disease of both small and large intestine without complications (principal)
CPT/HCPCS: 96365; 96366; J1745

== ENCOUNTER 2018-12-31 07:07 | Inpatient (IN) | payer MEDICARE, MEDICAID, SELFPAY ==
[2018-12-31] VITALS (32 sets, daily range): BP systolic 74–184; BP diastolic 41–84; PULSE 50–111; RESP 11–19; TEMP 35.7–36.9; O2SAT 72–98
[2018-12-31] MEDS: Lactated Ringers 1,000 ML 80 ML IV ×2 (07:42→13:34)
--- NOTE | 2018-12-31 08:12 | HPE_ITS ---
Date of service: 12/31/18 Time of Service: 08:12 Assessment and Plan Assessment and plan (1) Urinary retention: Status: Acute Assessment and plan: We will move ahead with a cystoscopy and transurethral resection of the prostate. Given his inability is to generate much detrusor pressure, he still has a high risk of not being able to empty his bladder. He is not able to do intermittent catheterization. We will place a suprapubic tube just in case he is unable to void. If he is able to void, eventually, we will remove the suprapubic tube. History of Present Illness History of Present Illness Chief Complaint: Urinary retention Narrative: This is a 73-year-old gentleman who developed urinary retention. He has required an indwelling urethral catheter. He has not been able to perform intermittent catheterization. We did a urodynamic study on him, but he was not able to generate much bladder pressure. I explained to him that the gold standard for his treatment would be intermittent catheterization, but he is not interested in CIC. He likely will need a chronic indwelling suprapubic tube, but would like to try to void on his own. As a compromise, we have elected to proceed with TURP along with placement of a suprapubic tube. We can monitor his postvoid residual by SP tube postop. If and when he is able to void greater than 50% of his indwelling volume, we will plan on removing the SP tube. He currently has an indwelling urethral catheter Review of Systems Review of Systems Narrative: No fevers or chills No vision change or dysphasia. Hx cataracts No thyroid dysfunction No shortness of breath, cough or hemoptysis No chest pain or palpitations Hx Crohns disease with resultant diarrhea alternation with constipation - followed by GI at [facility] No seizures, strokes. Hx peripheral neuropathy Hx thrombocytopenia and anemia No gout. Chronic arthralgias, low back pain, joint pain. [facility] Social History Smoking/Tobacco Use Status: Former Tobacco Use Alcohol Intake: current Alcohol Intake frequency: holidays/special occasions only Drug use: Never Substance use type: does not use Do you feel safe at home: Yes Do you feel safe in your relationship?: Yes Meds Home Medications and Allergies Home Medications Medication Instructions Recorded Confirmed Type aspirin [Aspirin Low-Strength] 1 tab PO DAILY tab.chew 07/13/12 12/31/18 History multivitamin 1 tab PO DAILY 07/13/12 12/31/18 History Narcotic Contract 01/23/13 11/20/18 History Blood Glucose Test #400 strip 08/03/17 11/20/18 Rx pen needle, diabetic 31 gauge x #360 ndl 12/22/17 11/20/18 Rx 1/3 blood sugar diagnostic #400 each 01/19/18 11/20/18 Rx blood-glucose meter #1 each 01/19/18 11/20/18 Rx lancets 25 gauge #100 each 01/19/18 11/20/18 Rx blood-glucose meter,continuous #1 each 02/22/18 11/20/18 Rx blood-glucose sensor #3 each 02/22/18 11/20/18 Rx blood-glucose transmitter #1 each 02/22/18 11/20/18 Rx nitroglycerin 0.4 mg sublingual 0.4 mg SL ONCE #25 tab 03/23/18 12/31/18 Rx tablet polyethylene glycol 3350 17 gram 17 gm PO DAILY PRN #90 each 07/10/18 12/31/18 Rx oral powder packet duloxetine 60 mg capsule,delayed 60 mg PO DAILY #90 tab-cap 07/16/18 12/31/18 Rx release omeprazole 20 mg capsule,delayed 20 mg PO DAILY #90 tab-cap 07/16/18 12/31/18 Rx release sennosides 8.6 mg tablet 17.2 mg PO QPM PRN #180 tab 07/16/18 12/31/18 Rx insulin glargine 100 unit/mL (3 60 unit SUBCUT BID ml 08/06/18 12/31/18 History mL) subcutaneous pen insulin lispro 100 unit/mL See Rx Instructions SUBCUT AC #150 08/24/18 12/31/18 Rx subcutaneous pen ml nystatin 1 applic TOPICAL TID #15 gm 09/26/18 12/31/18 Rx docusate sodium 100 mg capsule 100 mg PO BID PRN cap 11/06/18 12/31/18 History lidocaine 5 % topical gel See Rx Instructions TOPICAL TID 11/06/18 12/31/18 Rx PRN #30 gm lidocaine 5 % topical gel See Rx Instructions TOPICAL TID 11/06/18 12/31/18 Rx PRN #30 gm ferrous gluconate 324 mg (38 mg 324 mg PO BID #180 tab 11/22/18 12/31/18 Rx iron) tablet pregabalin 100 mg capsule 100 mg PO TID #270 tab-cap 11/30/18 12/31/18 Rx amlodipine [Norvasc] 10 mg PO QAM 12/31/18 History atorvastatin [Lipitor] 80 mg PO DAILY 12/31/18 12/31/18 History furosemide [Lasix] 20 mg PO DAILY 12/31/18 12/31/18 History metoprolol succinate [Toprol XL] 50 mg PO DAILY 12/31/18 12/31/18 History nortriptyline [Pamelor] 50 mg PO HS 12/31/18 12/31/18 History oxycodone [Roxicodone] 15 mg PO Q4H PRN MDD 5 12/31/18 12/31/18 History Allergies Allergy/AdvReac Type Severity Reaction Status Date / Time VIKY Inhibitors AdvReac Cough Verified 12/27/18 13:56 lorazepam AdvReac Diarrhea Verified 12/27/18 13:56 metformin AdvReac Diarrhea Verified 12/27/18 13:56 Exam Narrative Exam Narrative: He is in no current distress. He is cooperative. His vital signs are documented elsewhere in the chart His neck is thick but has normal range of motion His chest wall motion is normal. His lungs show decreased breath sounds at the bases Cardiac exam shows regular rate and rhythm His abdomen is obese but soft with no masses. The urethral catheter is in place He is awake, alert and oriented Results Last Vital Signs Temp 36.6 C 12/31/18 07:42 Pulse 76 12/31/18 07:42 Resp 18 12/31/18 07:42 BP 144/70 H 12/31/18 07:42 Pulse Ox 96 12/31/18 07:42
[2018-12-31] MEDS: ceFAZolin 2 GM/50 ML BAG IVPB (09:24)
[2018-12-31] MEDS: Lidocaine 2% Jelly 6 ML SYR (09:30)
[2018-12-31] MEDS: Bupivacaine 0.5% Pres-Free 30 ML VIAL (09:45)
--- NOTE | 2018-12-31 10:00 | PROST_PTH ---
PATIENT: DAVID ANDERSEN LOC: U#:[id number] AGE/SX: 73/M ROOM: 228 RE12/31/[address]: Dorian Sullivan MD : 1945 BED: A DIS: 01/04/2019 SPEC #: [id number] RECD: 12/31/18 12:45 STATUS: SOUCarlie REQ #: [id number] MEKA: 12/31/18 10:[address]: Dorian Sullivan DEPT: Surgical Specimen RECD BY: Jemma Vale ENTERED: 12/31/18 12:45 SP TYPE: PROST OTHR DR: Diana Murdock MD, DC Tissues: 1 - PROSTATE CURRETTINGS Procedures: GROSS AND MICRO LEVEL 4 Comments: [id number]
[2018-12-31] MEDS: HYDROmorphone 2 MG/ML VIAL IVP ×2 (11:14→11:43)
[2018-12-31] MEDS: Normal Saline Flush 10 ML SYR IV ×2 (11:14→20:32)
[2018-12-31] MEDS: oxyCODONE 15 MG TAB PO ×2 (13:59→20:22)
--- NOTE | 2018-12-31 14:15 | NUR.NOTE ---
Nursing Note: 1300 pt admitted to Med/Surg unit from the [facility] - pt is alert and oriented c/o throat pain and neuropathy pain. Urethral marmolejo is draining red with irrigation running wide open. Suprapubic not draining; dressing is intact with minimal staining. Lung sounds are clear -skin is warm and dry.
--- NOTE | 2018-12-31 14:49 | ROE_ITS ---
DATE OF PROCEDURE: December 31, 2018 PREOPERATIVE DIAGNOSIS: Urinary retention. POSTOPERATIVE DIAGNOSIS: Urinary retention. PROCEDURE: Cystoscopy; insert suprapubic tube; transurethral resection of prostate. SURGEON: Dorian Sullivan M.D. ANESTHESIA: General. COMPLICATIONS: None. ESTIMATED BLOOD LOSS: 200 cc's HISTORY: This is a 73-year-old gentleman who has a history of diabetes. He also has been diagnosed with Crohn's disease. He will need to start on medications that will affect his immune system. He has developed urinary retention and failed multiple voiding trials with maximal medical therapy. We recommended intermittent catheterization, but he has been unable or unwilling to perform CIC. We did a urodynamic study that showed that he was only able to generate a very small detrusor contractio n, making it worrisome that he would not be able to void even with a transurethral resection of the p rostate. He really would like to try without a catheter, so we are planning on a cystoscopy and transurethral resection of the prostate. We will place a suprapubic tube. If he is unable to void after his surge ry, he will be managed with a suprapubic tube that is changed monthly. If he is able to void greater than 50% of his bladder volume, we will remove his suprapubic tube. OPERATIVE REPORT: The patient was brought to the Operating Room on 12/31/18. After successful induct ion of general anesthesia he was placed in the dorsal lithotomy position. His indwelling urethral ca theter was removed. His genitalia and low abdomen were prepped and draped. We initially passed a curved Lowsley tractor through the urethra into the bladder. The tip of the Lo wsley tractor was held up against the abdominal wall. The abdominal wall was infiltrated with 0.5% M arcaine. An incision was then made over the tip of the Lowsley tractor and the tip was brought throu gh that incision onto the abdominal wall. The jaws of the Lowsley tractor were opened and we utilized them to grasp a 16 Macanese Webb catheter. We pulled the catheter back down through the suprapubic tract and out the urethra. We then release d the tip of the catheter. Cystoscopy was then performed while withdrawing the suprapubic catheter. Once the catheter was visua lized within the bladder, the catheter balloon was inflated with 10 cc's of sterile water. We then passed a 24 Macanese resectoscope sheath through the urethra into the bladder. We used bipolar cautery to resect the prostate from the bladder neck out to the verumontanum. There was a large otis unt of inflammatory tissue at the bladder neck. No specific papillary lesions were seen. We resected the visible prostate tissue from the bladder neck out to the verumontanum. The depth of the resection was down to the prostatic capsule. Any bleeding points were cauterized with the plasma button. At the completion of the procedure the irrigant was relatively clear. We passed a 24 Macanese hematuri a catheter through the urethra into the bladder. The catheter balloon was inflated with 30 cc's of s terile water. Continuous bladder irrigation with saline was then begun. Traction was placed on the catheter until the irrigant became clear. All resected prostate chips were sent to Pathology for permanent section. He tolerated this procedure well with no complications. cc: Diana Murdock M.D.
[2018-12-31] MEDS: Pregabalin 100 MG CAP PO ×2 (15:29→20:23)
[2018-12-31 15:31] LABS: Abs Immature Grans 0.02 k/cumm (0.0-0.09); Absolute Basophil Count 0.01 k/cumm (0.0-0.2); Absolute Eosinophil Count 0.04 k/cumm (0.0-0.7); Absolute Lymphocyte Count 1.13 k/cumm (1.2-3.4); Absolute Monocyte Count 0.17 k/cumm (0.11-0.7); Absolute Neutrophil Count 8.52 k/cumm (1.2-6.7); Basophils % 0.1; Eosinophils % 0.4; HCT 30.6 % (40.0-50.0); Immature Grans % 0.2; Lymphocytes % 11.4; Mean Corp. HGB Concentration 29.4 g/dL (32.0-36.0); Mean Corpuscular Hemoglobin 24.6 pg (27.0-33.0); Mean Corpuscular Volume 83.6 fL (80-95); Mean Platelet Volume 11.9 fL (8.0-11.0); Monocytes % 1.7; Neutrophils % 86.2; Platelet Count 162 x1000/uL (130-400); RBC 3.66 m/cumm (4.50-6.00); RBC Distribution Width 16.9 % (11.8-14.1); White Blood Cell Count 9.89 k/cumm (4.4-10.8)
--- NOTE | 2018-12-31 16:40 | W.PM.PROGNOT ---
Date of Service Date of service: 12/31/18 Time of Service: 16:40 Assessment and Plan Assessment and plan (1) Hypotension: Status: Acute Assessment and plan: With his history of diabetes, Crohn's disease treatments and indwelling catheter, I am most concerned about you postprocedural urosepsis. We have ordered blood cultures and have broadened his antibiotic coverage. Subjective Subjective Interval history since last seen: I received a call from the floor when the patient became tachycardic and hypotensive. He denies chest pain. His postop hemoglobin is 9.0 (which is close to his baseline). His white blood count is not elevated, but he does have a left shift. Exam Narrative Exam Narrative: He looks pale. His vital signs are documented elsewhere His urine is red-tinged but no clots (with bladder irrigation) Objective Objective Clinical Data: Abnormal lab results 12/31/18 Range/Units 15:20 RBC 3.66 L (4.50-6.00) m/cumm Hgb 9.0 L (13.5-17.5) g/dL Hct 30.6 L (40.0-50.0) % MCH 24.6 L (27.0-33.0) pg MCHC 29.4 L (32.0-36.0) g/dL RDW 16.9 H (11.8-14.1) % MPV 11.9 H (8.0-11.0) fL Absolute Neutrophils 8.52 H (1.2-6.7) k/cumm Absolute Lymphocytes 1.13 L (1.2-3.4) k/cumm Vital Signs Temperature 36.6 C 12/31/18 14:51 Temperature Source Tympanic 12/31/18 14:51 Pulse 98 H 12/31/18 14:51 Pulse Rhythm Regular 12/31/18 07:42 Respiratory Rate 12 12/31/18 14:51 Respiratory Effort 12/31/18 07:42 Respiratory Depth Shallow 12/31/18 07:42 Respiratory Pattern Normal 12/31/18 07:42 Blood Pressure 128/60 12/31/18 14:51 Pulse Oximetry 93 L 12/31/18 14:51 Respiratory End-tidal CO2 45 12/31/18 12:30 Oxygen Delivery Method Room Air 12/31/18 14:51 Oxygen Flow Rate 0 12/31/18 14:51 Pain Level 7 12/31/18 14:22 Comment 12/31/18 14:22 Intake & Output 12/30/18 12/31/18 12/31/18 23:59 11:59 23:59 Intake Total 1150 / 2936.667 1786.667 / 2936.667 Balance 1150 / 2936.667 1786.667 / 2936.667 Weight 106 kg Intake: IV 650 / 936.667 286.667 / 936.667 Oral 500 / 2000 1500 / 2000 Other: Urine Color Pale Urine Appearance Clear Emesis Description None None Laboratory Results WBC 9.89 k/cumm (4.4-10.8) 12/31/18 15:20 RBC 3.66 m/cumm (4.50-6.00) L 12/31/18 15:20 Hgb 9.0 g/dL (13.5-17.5) L 12/31/18 15:20 Hct 30.6 % (40.0-50.0) L 12/31/18 15:20 MCV 83.6 fL (80-95) 12/31/18 15:20 MCH 24.6 pg (27.0-33.0) L 12/31/18 15:20 MCHC 29.4 g/dL (32.0-36.0) L 12/31/18 15:20 RDW 16.9 % (11.8-14.1) H 12/31/18 15:20 Plt Count 162 x1000/uL (130-400) 12/31/18 15:20 MPV 11.9 fL (8.0-11.0) H 12/31/18 15:20 Immature Gran % 0.2 12/31/18 15:20 Neutrophils % 86.2 12/31/18 15:20 Lymphocytes % 11.4 12/31/18 15:20 Monocytes % 1.7 12/31/18 15:20 Eosinophils % 0.4 12/31/18 15:20 Basophils % 0.1 12/31/18 15:20 Absolute Neutrophils 8.52 k/cumm (1.2-6.7) H 12/31/18 15:20 Absolute Lymphocytes 1.13 k/cumm (1.2-3.4) L 12/31/18 15:20 Absolute Monocytes 0.17 k/cumm (0.11-0.7) 12/31/18 15:20 Absolute Eosinophils 0.04 k/cumm (0.0-0.7) 12/31/18 15:20 Absolute Basophils 0.01 k/cumm (0.0-0.2) 12/31/18 15:20
[2018-12-31] MEDS: Insulin Aspart 300 UNITS/3 ML PEN SC (17:05)
[2018-12-31 17:18] LABS: C-Reactive Protein 0.33 mg/dL (0.0-0.3)
[2018-12-31 17:20] LABS: Troponin I < 0.05 ng/mL (0.00-0.06)
[2018-12-31 17:32] LABS: Procalcitonin < 0.1 ng/mL
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
--- NOTE | 2018-12-31 18:35 | DI.RAD_ITS ---
EXAM: XR PORTABLE CHEST AP INDICATION: cough post op - concern for pneumonia. COMPARISON: XR PORTABLE CHEST AP from 10/23/2018 TECHNIQUE: 2D digital imaging was performed. FINDINGS: The lungs are well expanded and free of infiltrate. There is no pleural effusion or pneumothorax. The heart is normal in size. There is mild elevation of the right hemidiaphragm unchanged. The aorta i s mildly ectatic. No bony abnormality is seen. IMPRESSION: No evidence of acute cardiopulmonary disease
--- NOTE | 2018-12-31 18:37 | DI.VRAD_ITS ---
PROCEDURE INFORMATION: Exam: XR Chest, 1 View Exam date and time: 12/31/2018 6:29 PM Clinical history: 73 years old, male; Other: Cough post op-concern for pneumonia TECHNIQUE: Imaging protocol: XR of the chest Views: 1 view. COMPARISON: CR XR PORTABLE CHEST AP 10/23/2018 6:52 PM FINDINGS: Lungs: Normal pulmonary expansion. Pulmonary vasculature grossly normal. No infiltrates. Pleural space: No pleural effusion. No pneumothorax. Heart/Mediastinum: Heart size normal. No tracheal/mediastinal shift. Diaphragm: Mild elevation of the right hemidiaphragm unchanged. Vasculature: Mild aortic ectasia. Bones/joints: No acute osseous abnormalities are identified. IMPRESSION: No acute thoracic process. No pulmonary infiltrates are identified radiographically. Dictated and Authenticated by: Jose Armando Rodriguez MD. Ordering:PAL Carr MD
[2018-12-31] MEDS: PIPERACILLIN/TAZO 3.375 GM in Normal Saline 50 ML IVPB ×2 (18:54→23:55)
[2018-12-31] MEDS: GENTAMICIN 120 MG in Normal Saline 100 ML 200 MG IVPB (19:41)
[2018-12-31 20:08] LABS: Lactate 2.7 mmol/L (0.6-1.4)
--- NOTE | 2018-12-31 20:16 | NUR.NOTE ---
Nursing Note: Pt transferred to ICU at 1750 per MD orders. Prior to transfer, pt c/o tingling from feet to knees, diaphoresis, blurry vision. VS 35.7 T, 16 R, 74/50 BP, 108 P, 98 O2. FS 307. Repeat BP with manual cuff 116/58. Report given to Karine [facility]. Pt and belongings transferred via bed with at bedside.
[2018-12-31] MEDS: Ketorolac 15 MG/ML VIAL IVP (20:22)
[2018-12-31] MEDS: Ferrous Gluconate 324 MG TAB PO (20:23)
[2018-12-31] MEDS: Insulin Glargine 300 UNITS/3 ML PEN 60 UNITS SC (20:24)
[2018-12-31] MEDS: Insulin Aspart 300 UNITS/3 ML PEN 10 UNITS SC (20:29)
[2018-12-31] MEDS: Acetaminophen 325 MG TAB 650 MG PO (21:49)
[2018-12-31 22:24] LABS: Lactate 3.2 mmol/L (0.6-1.4)
[2018-12-31 23:02] LABS: Troponin I < 0.05 ng/mL (0.00-0.06)
[2018-12-31] MEDS: Lactated Ringers 1,000 ML 150 ML IV (23:55)
[2019-01-01] VITALS (27 sets, daily range): BP systolic 110–132; BP diastolic 39–67; PULSE 70–86; RESP 12–18; TEMP 35.8–36.8; O2SAT 92–99
[2019-01-01] MEDS: Normal Saline 1,000 ML 150 ML IV (04:19)
[2019-01-01] MEDS: PIPERACILLIN/TAZO 3.375 GM in Normal Saline 50 ML IVPB ×4 (05:41→23:35)
[2019-01-01] MEDS: oxyCODONE 15 MG TAB PO ×3 (06:31→23:05)
[2019-01-01 06:57] LABS: Mean Corp. HGB Concentration 30.8 g/dL (32.0-36.0); Mean Corpuscular Hemoglobin 25.6 pg (27.0-33.0); Mean Corpuscular Volume 83.1 fL (80-95); Mean Platelet Volume 11.6 fL (8.0-11.0); Platelet Count 111 x1000/uL (130-400); RBC 2.42 m/cumm (4.50-6.00); White Blood Cell Count 6.87 k/cumm (4.4-10.8)
[2019-01-01 06:59] LABS: HCT 20.1 % (40.0-50.0); HGB 6.2 g/dL (13.5-17.5)
[2019-01-01 07:06] LABS: Anion Gap 4.6 mmol/L (3-11); BUN 26 mg/dL (7-18); C-Reactive Protein 1.08 mg/dL (0.0-0.3); CO2 29.4 mmol/L (21.0-32.0); CREATININE 1.13 mg/dL (0.70-1.30); Calcium 7.8 mg/dL (8.5-10.1); Chloride 103 mmol/L (98-107); Glucose 176 mg/dL (70-100); Magnesium 1.6 mg/dL (1.8-2.4); Potassium 4.5 mmol/L (3.5-5.1); Sodium 137 mmol/L (136-145)
[2019-01-01 07:08] LABS: Troponin I < 0.05 ng/mL (0.00-0.06)
--- NOTE | 2019-01-01 07:39 | PGE_ITS ---
Date of Service Date of service: 01/01/19 Time of Service: 07:40 Assessment and Plan Assessment and plan (1) Retention of urine: Status: Chronic (2) Acute blood loss anemia: Status: Acute Assessment and plan: He does not appear to be actively bleeding, but with his surgery yesterday and increased hydration requirements, his hemoglobin is down to 6 (from 9 postop). I have ordered 1 unit of blood for now. We probably can discontinue his bladder irrigation as the output is transparent. If the output darkens to where it is no longer transparent, I will ask the nursing staff to restart the bladder irrigation. Ultimately, if the irrigation remains clear, I will likely remove the urethral catheter tomorrow. We can then begin plugging the suprapubic tube to see if he is able to void at all. I expect that he will go home with the suprapubic tube. We will ask him to monitor his output both from voiding and from the tube. If he is able to void more than 50% of his urine output, we will discontinue the suprapubic tube as an outpatient. Subjective Subjective Interval history since last seen: His hypotension and tachycardia responded to a fluid bolus yesterday. His heart rate and blood pressure remained stable overnight. He is not having any acute pain (he does have chronic pain). He has not had any clot retention. Exam Narrative Exam Narrative: He does not appear septic or toxic His urine output is clear with bladder irrigation at a low rate. He is awake and alert. Objective Objective Clinical Data: Abnormal lab results 12/31/18 12/31/18 12/31/18 Range/Units 15:20 16:35 16:35 RBC 3.66 L (4.50-6.00) m/cumm Hgb 9.0 L (13.5-17.5) g/dL Hct 30.6 L (40.0-50.0) % MCH 24.6 L (27.0-33.0) pg MCHC 29.4 L (32.0-36.0) g/dL RDW 16.9 H (11.8-14.1) % Plt Count (130-400) x1000/uL MPV 11.9 H (8.0-11.0) fL Absolute Neutrophils 8.52 H (1.2-6.7) k/cumm Absolute Lymphocytes 1.13 L (1.2-3.4) k/cumm BUN (7-18) mg/dL Glucose (70-100) mg/dL Lactate 2.0 H (0.6-1.4) mmol/L Calcium (8.5-10.1) mg/dL Magnesium (1.8-2.4) mg/dL C-Reactive Protein 0.33 H (0.0-0.3) mg/dL Crossmatch 12/31/18 12/31/18 01/01/19 Range/Units 19:52 22:15 06:20 RBC (4.50-6.00) m/cumm Hgb (13.5-17.5) g/dL Hct (40.0-50.0) % MCH (27.0-33.0) pg MCHC (32.0-36.0) g/dL RDW (11.8-14.1) % Plt Count (130-400) x1000/uL MPV (8.0-11.0) fL Absolute Neutrophils (1.2-6.7) k/cumm Absolute Lymphocytes (1.2-3.4) k/cumm BUN 26 H (7-18) mg/dL Glucose 176 H (70-100) mg/dL Lactate 2.7 H* 3.2 H* (0.6-1.4) mmol/L Calcium 7.8 L (8.5-10.1) mg/dL Magnesium 1.6 L (1.8-2.4) mg/dL C-Reactive Protein 1.08 H (0.0-0.3) mg/dL Crossmatch 01/01/19 01/01/19 Range/Units 06:20 07:04 RBC 2.42 L (4.50-6.00) m/cumm Hgb 6.2 L* D (13.5-17.5) g/dL Hct 20.1 L* D (40.0-50.0) % MCH 25.6 L (27.0-33.0) pg MCHC 30.8 L (32.0-36.0) g/dL RDW 17.0 H (11.8-14.1) % Plt Count 111 L (130-400) x1000/uL MPV 11.6 H (8.0-11.0) fL Absolute Neutrophils (1.2-6.7) k/cumm Absolute Lymphocytes (1.2-3.4) k/cumm BUN (7-18) mg/dL Glucose (70-100) mg/dL Lactate (0.6-1.4) mmol/L Calcium (8.5-10.1) mg/dL Magnesium (1.8-2.4) mg/dL C-Reactive Protein (0.0-0.3) mg/dL Crossmatch See Detail Vital Signs Temperature 36.1 C L 01/01/19 03:18 Temperature Source Temporal Artery Scan 01/01/19 03:18 Pulse 78 01/01/19 03:18 Pulse Rhythm Regular 12/31/18 15:07 Respiratory Rate 16 01/01/19 03:18 Respiratory Effort Non-Labored 01/01/19 03:18 Respiratory Depth Normal 01/01/19 03:18 Respiratory Pattern Normal 01/01/19 03:18 Blood Pressure 122/49 L 01/01/19 03:18 Blood Pressure Mean 73 01/01/19 03:18 Blood Pressure Position Supine 01/01/19 03:18 Pulse Oximetry 98 01/01/19 03:18 Respiratory End-tidal CO2 45 12/31/18 12:30 Oxygen Delivery Method Nasal Cannula 01/01/19 03:18 Oxygen Flow Rate 2 01/01/19 03:18 Pain Level 7 01/01/19 06:31 Comment 12/31/18 23:10 Intake & Output 12/31/18 12/31/18 01/01/19 11:59 23:59 11:59 Intake Total 1150 / 4344.667 3194.667 / 4344.667 50 / 50 Balance 1150 / 4344.667 3194.667 / 4344.667 50 / 50 Weight 106 kg 105.6 kg Intake: IV 650 / 4.667 1424.667 / 2074.667 50 / 50 Oral 500 / 2270 1770 / 2270 Other: Urine Color Pale [place] Urine Appearance Clear Hematuria Clots Comment pt has both SPC and marmolejo. CBI via marmolejo. SPC is draining clear pink urine, with some old clots adhering to the tubing. Marmolejo is draining clear light pink urine with occasional tiny clots. Both are flowing freely. pt has both SPC and marmolejo. CBI via marmolejo. SPC is draining clear pink urine, with some old clots adhering to the tubing. Marmolejo is draining clear light pink urine with occasional tiny clots. Both are flowing freely. Emesis Description None None Laboratory Results WBC 6.87 k/cumm (4.4-10.8) D 01/01/19 06:20 RBC 2.42 m/cumm (4.50-6.00) L 01/01/19 06:20 Hgb 6.2 g/dL (13.5-17.5) L* D 01/01/19 06:20 Hct 20.1 % (40.0-50.0) L* D 01/01/19 06:20 MCV 83.1 fL (80-95) 01/01/19 06:20 MCH 25.6 pg (27.0-33.0) L 01/01/19 06:20 MCHC 30.8 g/dL (32.0-36.0) L 01/01/19 06:20 RDW 17.0 % (11.8-14.1) H 01/01/19 06:20 Plt Count 111 x1000/uL (130-400) L 01/01/19 06:20 MPV 11.6 fL (8.0-11.0) H 01/01/19 06:20 Immature Gran % 0.2 12/31/18 15:20 Neutrophils % 86.2 12/31/18 15:20 Lymphocytes % 11.4 12/31/18 15:20 Monocytes % 1.7 12/31/18 15:20 Eosinophils % 0.4 12/31/18 15:20 Basophils % 0.1 12/31/18 15:20 Absolute Neutrophils 8.52 k/cumm (1.2-6.7) H 12/31/18 15:20 Absolute Lymphocytes 1.13 k/cumm (1.2-3.4) L 12/31/18 15:20 Absolute Monocytes 0.17 k/cumm (0.11-0.7) 12/31/18 15:20 Absolute Eosinophils 0.04 k/cumm (0.0-0.7) 12/31/18 15:20 Absolute Basophils 0.01 k/cumm (0.0-0.2) 12/31/18 15:20 Sodium 137 mmol/L (136-145) 01/01/19 06:20 Potassium 4.5 mmol/L (3.5-5.1) 01/01/19 06:20 Chloride 103 mmol/L (98-107) 01/01/19 06:20 Carbon Dioxide 29.4 mmol/L (21.0-32.0) 01/01/19 06:20 Anion Gap 4.6 mmol/L (3-11) 01/01/19 06:20 BUN 26 mg/dL (7-18) H 01/01/19 06:20 Creatinine 1.13 mg/dL (0.70-1.30) 01/01/19 06:20 Estimated GFR/1.73 m2 >= 60.00 (mL/min/1.73m2) 01/01/19 06:20 Glucose 176 mg/dL (70-100) H 01/01/19 06:20 Lactate 3.2 mmol/L (0.6-1.4) H* 12/31/18 22:15 Calcium 7.8 mg/dL (8.5-10.1) L 01/01/19 06:20 Magnesium 1.6 mg/dL (1.8-2.4) L 01/01/19 06:20 Troponin I < 0.05 ng/mL (0.00-0.06) 01/01/19 06:20 C-Reactive Protein 1.08 mg/dL (0.0-0.3) H 01/01/19 06:20 Procalcitonin < 0.1 ng/mL 12/31/18 16:35 Crossmatch See Detail 01/01/19 07:04
[2019-01-01 08:08] LABS: Procalcitonin 0.2 ng/mL
[2019-01-01] MEDS: Insulin Aspart 300 UNITS/3 ML PEN SC ×2 (08:14→11:54)
[2019-01-01] MEDS: Omeprazole 20 MG CAPCR PO (08:15)
[2019-01-01] MEDS: Atorvastatin 40 MG TAB 80 MG PO (08:15)
[2019-01-01] MEDS: DULoxetine 30 MG CAP 60 MG PO (08:15)
[2019-01-01] MEDS: Ferrous Gluconate 324 MG TAB PO ×2 (08:16→20:02)
[2019-01-01] MEDS: Pregabalin 100 MG CAP PO ×3 (08:16→20:02)
[2019-01-01] MEDS: Insulin Glargine 300 UNITS/3 ML PEN 60 UNITS SC (08:16)
[2019-01-01] MEDS: Multivitamin TAB 1 TAB PO (08:16)
[2019-01-01] MEDS: Metoprolol CR 50 MG TABCR PO (08:16)
--- NOTE | 2019-01-01 08:25 | W.PM.PROGNOT ---
Date of Service Date of service: 01/01/19 Time of Service: 15:26 Assessment and Plan Assessment and plan (1) Hypotension: Status: Resolved Assessment and plan: Normotensive overnight and today. Could be that his H/H on yesterday's check had not yet redistributed and we saw effects of acute post-op anemia - this isn't clear. Blood cultures are still pending. Afebrile. Lactate normalized. Continue empiric abx (vancomycin/zosyn; s/p 1 dose of gentamycin). Continue MIVF. Ok to downgrade to medsurg. Also, consider dysautonomia due to diabetes and/or presence of CBI. (2) Crohn's colitis: Status: Chronic Assessment and plan: On immunosuppression with remicaid. Cover with broad spectrum abx. 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 (4) Hematuria: Status: Resolved Assessment and plan: s/p transfusion of 1 unit of pRBC's. Monitor. Subjective Subjective Interval history since last seen: Denies dizziness, chest pain, shortness of breath, nausea, vomiting. Latest BP 120/53 , no longer tachycardic, 97% on 2L. Low 90's on RA overnight. CBI clamped this morning. s/p 1 unit of PRBC's today for an H/H of 6.2. Adamantly refuses to do incentive spirometry - says he would like to throw it out of the window. He does not like the way it makes him feel. Exam Narrative Exam Narrative: General: Very pleasant elderly male, A&Ox3, looks more pink in the face today. HEENT: EOMI, MMM Cardiovascular: RRR, no m/r/g Lungs: CTAB Gastrointestinal: abdomen is soft, nontender, nondistended Genitourinary: CBI clamped - pink urine in catheter Extremities: no e/c/c BLE's Objective Objective Clinical Data: Abnormal lab results 12/31/18 12/31/18 12/31/18 Range/Units 15:20 16:35 16:35 RBC 3.66 L (4.50-6.00) m/cumm Hgb 9.0 L (13.5-17.5) g/dL Hct 30.6 L (40.0-50.0) % MCH 24.6 L (27.0-33.0) pg MCHC 29.4 L (32.0-36.0) g/dL RDW 16.9 H (11.8-14.1) % Plt Count (130-400) x1000/uL MPV 11.9 H (8.0-11.0) fL Absolute Neutrophils 8.52 H (1.2-6.7) k/cumm Absolute Lymphocytes 1.13 L (1.2-3.4) k/cumm BUN (7-18) mg/dL Glucose (70-100) mg/dL Lactate 2.0 H (0.6-1.4) mmol/L Calcium (8.5-10.1) mg/dL Magnesium (1.8-2.4) mg/dL C-Reactive Protein 0.33 H (0.0-0.3) mg/dL Crossmatch 12/31/18 12/31/18 01/01/19 Range/Units 19:52 22:15 06:20 RBC (4.50-6.00) m/cumm Hgb (13.5-17.5) g/dL Hct (40.0-50.0) % MCH (27.0-33.0) pg MCHC (32.0-36.0) g/dL RDW (11.8-14.1) % Plt Count (130-400) x1000/uL MPV (8.0-11.0) fL Absolute Neutrophils (1.2-6.7) k/cumm Absolute Lymphocytes (1.2-3.4) k/cumm BUN 26 H (7-18) mg/dL Glucose 176 H (70-100) mg/dL Lactate 2.7 H* 3.2 H* (0.6-1.4) mmol/L Calcium 7.8 L (8.5-10.1) mg/dL Magnesium 1.6 L (1.8-2.4) mg/dL C-Reactive Protein 1.08 H (0.0-0.3) mg/dL Crossmatch 01/01/19 01/01/19 Range/Units 06:20 06:20 RBC 2.42 L (4.50-6.00) m/cumm Hgb 6.2 L* D (13.5-17.5) g/dL Hct 20.1 L* D (40.0-50.0) % MCH 25.6 L (27.0-33.0) pg MCHC 30.8 L (32.0-36.0) g/dL RDW 17.0 H (11.8-14.1) % Plt Count 111 L (130-400) x1000/uL MPV 11.6 H (8.0-11.0) fL Absolute Neutrophils (1.2-6.7) k/cumm Absolute Lymphocytes (1.2-3.4) k/cumm BUN (7-18) mg/dL Glucose (70-100) mg/dL Lactate (0.6-1.4) mmol/L Calcium (8.5-10.1) mg/dL Magnesium (1.8-2.4) mg/dL C-Reactive Protein (0.0-0.3) mg/dL Crossmatch See Detail Vital Signs Temperature 36.1 C L 01/01/19 03:18 Temperature Source Temporal Artery Scan 01/01/19 03:18 Pulse 78 01/01/19 03:18 Pulse Rhythm Regular 12/31/18 15:07 Respiratory Rate 16 01/01/19 03:18 Respiratory Effort Non-Labored 01/01/19 03:18 Respiratory Depth Normal 01/01/19 03:18 Respiratory Pattern Normal 01/01/19 03:18 Blood Pressure 122/49 L 01/01/19 03:18 Blood Pressure Mean 73 01/01/19 03:18 Blood Pressure Position Supine 01/01/19 03:18 Pulse Oximetry 98 01/01/19 03:18 Respiratory End-tidal CO2 45 12/31/18 12:30 Oxygen Delivery Method Nasal Cannula 01/01/19 03:18 Oxygen Flow Rate 2 01/01/19 03:18 Pain Level 7 01/01/19 06:31 Comment 12/31/18 23:10 Intake & Output 12/31/18 12/31/18 01/01/19 11:59 23:59 11:59 Intake Total 1150 / 4344.667 3194.667 / 4344.667 695 / 695 Balance 1150 / 4344.667 3194.667 / 4344.667 695 / 695 Weight 106 kg 105.6 kg Intake: IV 650 / 4.7 1424.667 / 2073.667 695 / 695 Oral 500 / 2270 1770 / 2270 Other: Urine Color Pale [place] Urine Appearance Clear Hematuria Clots Comment pt has both SPC and marmolejo. CBI via marmolejo. SPC is draining clear pink urine, with some old clots adhering to the tubing. Marmolejo is draining clear light pink urine with occasional tiny clots. Both are flowing freely. pt has both SPC and marmolejo. CBI via marmolejo. SPC is draining clear pink urine, with some old clots adhering to the tubing. Marmolejo is draining clear light pink urine with occasional tiny clots. Both are flowing freely. Emesis Description None None Laboratory Results WBC 6.87 k/cumm (4.4-10.8) D 01/01/19 06:20 RBC 2.42 m/cumm (4.50-6.00) L 01/01/19 06:20 Hgb 6.2 g/dL (13.5-17.5) L* D 01/01/19 06:20 Hct 20.1 % (40.0-50.0) L* D 01/01/19 06:20 MCV 83.1 fL (80-95) 01/01/19 06:20 MCH 25.6 pg (27.0-33.0) L 01/01/19 06:20 MCHC 30.8 g/dL (32.0-36.0) L 01/01/19 06:20 RDW 17.0 % (11.8-14.1) H 01/01/19 06:20 Plt Count 111 x1000/uL (130-400) L 01/01/19 06:20 MPV 11.6 fL (8.0-11.0) H 01/01/19 06:20 Immature Gran % 0.2 12/31/18 15:20 Neutrophils % 86.2 12/31/18 15:20 Lymphocytes % 11.4 12/31/18 15:20 Monocytes % 1.7 12/31/18 15:20 Eosinophils % 0.4 12/31/18 15:20 Basophils % 0.1 12/31/18 15:20 Absolute Neutrophils 8.52 k/cumm (1.2-6.7) H 12/31/18 15:20 Absolute Lymphocytes 1.13 k/cumm (1.2-3.4) L 12/31/18 15:20 Absolute Monocytes 0.17 k/cumm (0.11-0.7) 12/31/18 15:20 Absolute Eosinophils 0.04 k/cumm (0.0-0.7) 12/31/18 15:20 Absolute Basophils 0.01 k/cumm (0.0-0.2) 12/31/18 15:20 Sodium 137 mmol/L (136-145) 01/01/19 06:20 Potassium 4.5 mmol/L (3.5-5.1) 01/01/19 06:20 Chloride 103 mmol/L (98-107) 01/01/19 06:20 Carbon Dioxide 29.4 mmol/L (21.0-32.0) 01/01/19 06:20 Anion Gap 4.6 mmol/L (3-11) 01/01/19 06:20 BUN 26 mg/dL (7-18) H 01/01/19 06:20 Creatinine 1.13 mg/dL (0.70-1.30) 01/01/19 06:20 Estimated GFR/1.73 m2 >= 60.00 (mL/min/1.73m2) 01/01/19 06:20 Glucose 176 mg/dL (70-100) H 01/01/19 06:20 Lactate 3.2 mmol/L (0.6-1.4) H* 12/31/18 22:15 Calcium 7.8 mg/dL (8.5-10.1) L 01/01/19 06:20 Magnesium 1.6 mg/dL (1.8-2.4) L 01/01/19 06:20 Troponin I < 0.05 ng/mL (0.00-0.06) 01/01/19 06:20 C-Reactive Protein 1.08 mg/dL (0.0-0.3) H 01/01/19 06:20 Procalcitonin 0.2 ng/mL 01/01/19 06:20 Patient ABO/Rh A Positive 01/01/19 06:20 Antibody Screen Negative 01/01/19 06:20 Crossmatch See Detail 01/01/19 06:20
[2019-01-01 08:36] LABS: Lactate 1.1 mmol/L (0.6-1.4)
[2019-01-01] MEDS: MAGNESIUM SULFATE 2 GM/50 ML BAG IVPB (09:14)
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
--- NOTE | 2019-01-01 12:23 | PHARADMIT ---
Admission Pharmacy Clinical Review urinary retention Code Status Full Code Current Weight 105.6 kg Renally Cleared and Narrow Therapeutic Index Meds Crcl ~74.2 mL/min using adjusted body weight current meds okay QTc Value / Action Taken QTc 431 BP Control, Fever BP 121/52 SCr 1.13 Electrolytes reviewed mag 1.6 DVT Prophylaxis none Opiate Usage / Scheduled Bowel Regimen Ordered prn/prn Plt/SCr for Heparin / Enoxaparin plt 111 SCr 1.13 INR for Warfarin n/a H/H stable, WBC/Bands h/h 6.2/20.1 wbc 68.87 Antibiotic appropriateness vanco and zosyn added due to concern for possible sepsis may d/c after BC results come back as MD thinking sepsis less likely due to how well pt responded to iv fluids Cultures and Sensitivities blood cultures pending Surgical ABX d/c within 24 hr n/a DM control / Insulin Dosing BG 176 scheduled glargine and scheduled/sliding scale aspart ordered Heart Failure (Check EF%) (VIKY's, B-Block, Diuretics) metoprolol IV to PO Switch n/a Home Meds Reviewed multiple MOLD LAMINATOR depressants-oxycodone, nortriptyline, pregabalin Home Meds Not Ordered amlodipine, aspirin, chlorthalidone, furosemide, insulin lispro, topical lidocaine, losartan, nystatin Comments watch h/h- plan was for 1 unit today
[2019-01-01] MEDS: Polyethylene Glycol 3350 17 GM PACKET PO (12:29)
[2019-01-01] MEDS: Docusate Sodium 100 MG CAP PO (12:29)
[2019-01-01] MEDS: Ketorolac 15 MG/ML VIAL IVP (13:35)
[2019-01-01] MEDS: Normal Saline 1,000 ML 100 ML IV (13:50)
[2019-01-01 15:41] LABS: HCT 20.7 % (40.0-50.0); HGB 6.4 g/dL (13.5-17.5)
[2019-01-01] MEDS: diphenhydrAMINE 25 MG CAP PO (16:29)
[2019-01-01] MEDS: Acetaminophen 325 MG TAB 650 MG PO (16:30)
[2019-01-01] MEDS: Normal Saline Flush 10 ML SYR IV (16:48)
[2019-01-01] MEDS: DEXTROSE 5%-0.9% SALINE 1,000 ML 100 ML IV (19:16)
[2019-01-02] VITALS (39 sets, daily range): BP systolic 115–163; BP diastolic 50–100; PULSE 67–77; RESP 13–22; TEMP 36.2–36.8; O2SAT 94–98
[2019-01-02] MEDS: PIPERACILLIN/TAZO 3.375 GM in Normal Saline 50 ML IVPB ×3 (05:57→18:32)
[2019-01-02] MEDS: Omeprazole 20 MG CAPCR PO (06:38)
[2019-01-02] MEDS: oxyCODONE 15 MG TAB PO ×3 (06:38→22:32)
[2019-01-02 07:14] LABS: Abs Immature Grans 0.01 k/cumm (0.0-0.09); Absolute Basophil Count 0.01 k/cumm (0.0-0.2); Absolute Lymphocyte Count 1.68 k/cumm (1.2-3.4); Absolute Monocyte Count 0.55 k/cumm (0.11-0.7); Basophils % 0.2; Eosinophils % 3.3; Immature Grans % 0.2; Lymphocytes % 27.3; Mean Corp. HGB Concentration 31.9 g/dL (32.0-36.0); Mean Corpuscular Volume 84.8 fL (80-95); Monocytes % 8.9; Neutrophils % 60.1; RBC 2.44 m/cumm (4.50-6.00); White Blood Cell Count 6.15 k/cumm (4.4-10.8)
[2019-01-02 07:43] LABS: Anion Gap 7.7 mmol/L (3-11); BUN 18 mg/dL (7-18); CO2 26.3 mmol/L (21.0-32.0); CREATININE 0.97 mg/dL (0.70-1.30); Calcium 7.5 mg/dL (8.5-10.1); Chloride 109 mmol/L (98-107); Glucose 86 mg/dL (70-100); Magnesium 1.8 mg/dL (1.8-2.4); Potassium 3.6 mmol/L (3.5-5.1); Sodium 143 mmol/L (136-145)
[2019-01-02 07:48] LABS: HGB 6.6 g/dL (13.5-17.5)
[2019-01-02 07:49] LABS: HCT 20.7 % (40.0-50.0)
[2019-01-02 07:51] LABS: Diff Comment RBC Morph Reviewed
[2019-01-02 07:52] LABS: Anisocytosis 2+; Hypochromasia 1+; Platelet Count 86 x1000/uL (130-400); Poikilocytes 1+
[2019-01-02] MEDS: Ferrous Gluconate 324 MG TAB PO ×2 (08:46→21:05)
[2019-01-02] MEDS: Pregabalin 100 MG CAP PO ×3 (08:46→21:05)
[2019-01-02] MEDS: Atorvastatin 40 MG TAB 80 MG PO (08:46)
[2019-01-02] MEDS: DULoxetine 30 MG CAP 60 MG PO (08:47)
[2019-01-02] MEDS: Metoprolol CR 50 MG TABCR PO (08:48)
[2019-01-02] MEDS: diphenhydrAMINE 25 MG CAP PO (08:48)
[2019-01-02] MEDS: Acetaminophen 325 MG TAB 650 MG PO (08:48)
[2019-01-02] MEDS: Multivitamin TAB 1 TAB PO (08:48)
[2019-01-02] MEDS: Insulin Glargine 300 UNITS/3 ML PEN 30 UNITS SC (08:50)
--- NOTE | 2019-01-02 08:54 | W.PM.PROGNOT ---
Date of Service Date of service: 01/02/19 Time of Service: 08:54 Assessment and Plan Assessment and plan (1) Acute blood loss anemia: Status: Acute Assessment and plan: I do not see active bleeding from his bladder/prostate at this time, but he does have a large bladder (over a liter capacity), so he could harbor more clots than I previously suspected. My guess is that his initial blood loss was much higher than I originally recognized. He will get 2 more units of PRBC since his Hgb is not coming up as expected. If the Hgb does not respond, we may need some type of scan to look for other bleeding sources. Subjective Subjective Interval history since last seen: No dizziness or light headedness. No chest pain. He did not require CBI overnight. Exam Narrative Exam Narrative: He still looks pale His urine does not look overly bloody (more c/w old blood compared to fresh blood) I hand irrigated his catheter and removed many old clots. I then ran CBI for a minute or two to make sure it remained clear. I then removed his urethral catheter. Objective Objective Clinical Data: Abnormal lab results 01/01/19 01/01/19 01/02/19 Range/Units 06:20 15:05 06:19 RBC (4.50-6.00) m/cumm Hgb 6.4 L* (13.5-17.5) g/dL Hct 20.7 L* (40.0-50.0) % MCHC (32.0-36.0) g/dL RDW (11.8-14.1) % Plt Count (130-400) x1000/uL MPV (8.0-11.0) fL Chloride 109 H (98-107) mmol/L Calcium 7.5 L (8.5-10.1) mg/dL Crossmatch See Detail 01/02/19 Range/Units 06:19 RBC 2.44 L (4.50-6.00) m/cumm Hgb 6.6 L* (13.5-17.5) g/dL Hct 20.7 L* (40.0-50.0) % MCHC 31.9 L (32.0-36.0) g/dL RDW 17.0 H (11.8-14.1) % Plt Count 86 L (130-400) x1000/uL MPV 12.0 H (8.0-11.0) fL Chloride (98-107) mmol/L Calcium (8.5-10.1) mg/dL Crossmatch Vital Signs Temperature 36.4 C L 01/02/19 03:45 Temperature Source Temporal Artery Scan 01/01/19 23:45 Pulse 72 01/02/19 03:43 Pulse Rhythm Regular 12/31/18 15:07 Respiratory Rate 18 01/01/19 20:05 Respiratory Effort 01/01/19 23:45 Respiratory Depth Normal 01/01/19 23:45 Respiratory Pattern Normal 01/01/19 23:45 Blood Pressure 123/55 L 01/02/19 03:43 Blood Pressure Mean 72 01/02/19 03:43 Blood Pressure Position Supine 01/01/19 11:37 Pulse Oximetry 94 L 01/02/19 03:45 Respiratory End-tidal CO2 45 12/31/18 12:30 Oxygen Delivery Method Room Air 01/02/19 03:45 Oxygen Flow Rate 0 01/02/19 03:45 Pain Level 4 01/01/19 23:45 Comment 01/01/19 09:50 Intake & Output 01/01/19 01/01/19 01/02/19 11:59 23:59 11:59 Intake Total 1350 / 3703.333 2353.333 / 3703.333 736.667 / 736.667 Output Total 2450 / 2450 1000 / 1000 Balance 1350 / 1253.333 -96.667 / 1253.333 -263.333 / -263.333 Weight 105.6 kg 105.8 kg Intake: IV 1150 / 2358.333 1208.333 / 2358.333 736.667 / 736.667 Oral 200 / 695 495 / 695 Blood Product 600 / 600 Rbc Leuko Reduced Unit 300 / 300 [id number] Rbc Leuko Reduced Unit 300 / 300 [id number] Other 50 / 50 Rbc Leuko Reduced Unit 50 / 50 [id number] Output: Urine 2450 / 2450 1000 / 1000 Other: Urine Color [place] Dark Red Dark Red Urine Appearance Hematuria Hematuria Clots Comment Suprapubic; marmolejo bag not emptied at this time; 3 way irrigant clamped at this time by Dr. Sullivan; restart PRN; bladder irrigation begun briefly after pt ambulated bed to commode to bed, since urine became dark red after ambulation. However, after 1 minute of irrigation fluid draining into tubes was totally clear with only the slightest trace of pink, and irrigation was stopped and reclamped Stool Occult Blood Negative Stool Size Large Large Stool Characteristics Soft Soft Formed Formed [place] Laboratory Results WBC 6.15 k/cumm (4.4-10.8) 01/02/19 06:19 RBC 2.44 m/cumm (4.50-6.00) L 01/02/19 06:19 Hgb 6.6 g/dL (13.5-17.5) L* 01/02/19 06:19 Hct 20.7 % (40.0-50.0) L* 01/02/19 06: MCV 84.8 fL (80-95) 01/02/19 06:19 MCH 27.0 pg (27.0-33.0) 01/02/19 06: MCHC 31.9 g/dL (32.0-36.0) L 01/02/19 06:19 RDW 17.0 % (11.8-14.1) H 01/02/19 06:19 Plt Count 86 x1000/uL (130-400) L 01/02/19 06:19 MPV 12.0 fL (8.0-11.0) H 01/02/19 06:19 Immature Gran % 0.2 01/02/19 06:19 Neutrophils % 60.1 01/02/19 06:19 Lymphocytes % 27.3 01/02/19 06:19 Monocytes % 8.9 01/02/19 06:19 Eosinophils % 3.3 01/02/19 06:19 Basophils % 0.2 01/02/19 06:19 Absolute Neutrophils 3.70 k/cumm (1.2-6.7) 01/02/19 06:19 Absolute Lymphocytes 1.68 k/cumm (1.2-3.4) 01/02/19 06:19 Absolute Monocytes 0.55 k/cumm (0.11-0.7) 01/02/19 06: Absolute Eosinophils 0.20 k/cumm (0.0-0.7) 01/02/19 06: Absolute Basophils 0.01 k/cumm (0.0-0.2) 01/02/19 06:19 Differential Comment Rbc morph reviewed 01/02/19 06:19 RBC Morphology See below 01/02/19 06:19 Hypochromasia 1+ 01/02/19 06:19 Poikilocytosis 1+ 01/02/19 06:19 Anisocytosis 2+ 01/02/19 06:19 Sodium 143 mmol/L (136-145) 01/02/19 06:19 Potassium 3.6 mmol/L (3.5-5.1) 01/02/19 06:19 Chloride 109 mmol/L (98-107) H 01/02/19 06:19 Carbon Dioxide 26.3 mmol/L (21.0-32.0) 01/02/19 06:19 Anion Gap 7.7 mmol/L (3-11) 01/02/19 06:19 BUN 18 mg/dL (7-18) D 01/02/19 06:19 Creatinine 0.97 mg/dL (0.70-1.30) 01/02/19 06:19 Estimated GFR/1.73 m2 >= 60.00 (mL/min/1.73m2) 01/02/19 06:19 Glucose 86 mg/dL (70-100) D 01/02/19 06:19 Lactate 1.1 mmol/L (0.6-1.4) 01/01/19 08:12 Calcium 7.5 mg/dL (8.5-10.1) L 01/02/19 06:19 Magnesium 1.8 mg/dL (1.8-2.4) 01/02/19 06:19 Troponin I < 0.05 ng/mL (0.00-0.06) 01/01/19 06:20 C-Reactive Protein 1.08 mg/dL (0.0-0.3) H 01/01/19 06:20 Procalcitonin 0.2 ng/mL 01/01/19 06:20 Patient ABO/Rh A Positive 01/01/19 06:20 Antibody Screen Negative 01/01/19 06:20 Crossmatch See Detail 01/01/19 06:20
[2019-01-02 11:18] LABS: Vancomycin, Trough 20.8 ug/mL (10.0-20.0)
[2019-01-02] MEDS: Insulin Aspart 300 UNITS/3 ML PEN SC ×2 (12:20→17:15)
--- NOTE | 2019-01-02 15:01 | CHAPLAIN ---
I had a short visit with Parviz and his , introducing myself, explaining my role and offering support.
--- NOTE | 2019-01-02 15:27 | W.PM.PROGNOT ---
Date of Service Date of service: 01/02/19 Time of Service: 15:28 Assessment and Plan Assessment and plan (1) Hypotension: Status: Resolved Assessment and plan: Likely due to symptomatic anemia of acute blood loss of hematuria. S/p transfusion of a total of 4 units of pRBC's. Ok to d/c zosyn and monitor off abx. (2) Crohn's colitis: Status: Chronic Assessment and plan: On immunosuppression with remicaid. No evidence of a current flare or bleeding. 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 (4) Hematuria: Status: Resolved Assessment and plan: As above. Defer to primary Subjective Subjective Interval history since last seen: Mr Pearson is receiving 2 more units of pRBC's today. Denies dizziness, chest pain, shortness of breath, nausea. He is complains of neuropathic pain in his feet, which is especially bad today Exam Narrative Exam Narrative: General: Very pleasant elderly male, A&Ox3, looks better HEENT: EOMI, MMM Cardiovascular: RRR, no m/r/g Lungs: CTAB Gastrointestinal: abdomen is soft, nontender, nondistended Genitourinary: pink urine in catheter Extremities: no e/c/c BLE's Objective Objective Clinical Data: Abnormal lab results 01/01/19 01/01/19 01/02/19 Range/Units 06:20 15:05 06:19 RBC (4.50-6.00) m/cumm Hgb 6.4 L* (13.5-17.5) g/dL Hct 20.7 L* (40.0-50.0) % MCHC (32.0-36.0) g/dL RDW (11.8-14.1) % Plt Count (130-400) x1000/uL MPV (8.0-11.0) fL Chloride 109 H (98-107) mmol/L Calcium 7.5 L (8.5-10.1) mg/dL Vancomycin Trough (10.0-20.0) ug/mL Crossmatch See Detail 01/02/19 01/02/19 Range/Units 06:19 10:50 RBC 2.44 L (4.50-6.00) m/cumm Hgb 6.6 L* (13.5-17.5) g/dL Hct 20.7 L* (40.0-50.0) % MCHC 31.9 L (32.0-36.0) g/dL RDW 17.0 H (11.8-14.1) % Plt Count 86 L (130-400) x1000/uL MPV 12.0 H (8.0-11.0) fL Chloride (98-107) mmol/L Calcium (8.5-10.1) mg/dL Vancomycin Trough 20.8 H* (10.0-20.0) ug/mL Crossmatch Vital Signs Temperature 36.5 C 01/02/19 15:03 Temperature Source Temporal Artery Scan 01/01/19 23:45 Pulse 75 01/02/19 15:03 Pulse Rhythm Regular 12/31/18 15:07 Pulse 73 01/02/19 13:01 Respiratory Rate 20 01/02/19 15:03 Respiratory Effort 01/02/19 08:00 Respiratory Depth Normal 01/02/19 08:00 Respiratory Pattern Normal 01/02/19 08:00 Blood Pressure 131/67 01/02/19 15:03 Blood Pressure Mean 105 01/02/19 13:00 Blood Pressure Position Supine 01/01/19 11:37 Pulse Oximetry 98 01/02/19 15:03 Respiratory End-tidal CO2 45 12/31/18 12:30 Oxygen Delivery Method Nasal Cannula 01/02/19 15:03 Oxygen Flow Rate 1 01/02/19 15:03 Pain Level 4 01/01/19 23:45 Comment 01/01/19 09:50 Intake & Output 01/01/19 01/02/19 01/02/19 23:59 11:59 23:59 Intake Total 2353.333 / 3703.333 786.667 / 1386.667 600 / 1386.667 Output Total 2450 / 2450 1000 / 1000 Balance -96.667 / 1253.333 -213.333 / 386.667 600 / 386.667 Weight 105.6 kg 105.8 kg Intake: IV 1208.333 / 2358.333 786.667 / 1086.667 300 / 1086.667 Oral 495 / 695 Blood Product 600 / 600 300 / 300 Rbc Leuko Reduced Unit 300 / 300 [id number] Rbc Leuko Reduced Unit 300 / 300 [id number] Rbc Leuko Reduced Unit 300 / 300 [id number] Other 50 / 50 Rbc Leuko Reduced Unit 50 / 50 [id number] Output: Urine 2450 / 2450 1000 / 1000 Other: Urine Color [place] Dark Red Urine Appearance Hematuria Clear Comment bladder irrigation begun briefly after pt ambulated bed to commode to bed, since urine became dark red after ambulation. However, after 1 minute of irrigation fluid draining into tubes was totally clear with only the slightest trace of pink, and irrigation was stopped and reclamped Dr. Sullivan in and hand irrigated the urethral catheter. he then removed that catheter and irrigated the SP catheter. Lg amt of clots were removed from the urethral catheter, none from the SP cath. Stool Occult Blood Negative Negative Stool Size Large Large Stool Characteristics Soft Soft Formed Formed Brown Laboratory Results WBC 6.15 k/cumm (4.4-10.8) 01/02/19 06:19 RBC 2.44 m/cumm (4.50-6.00) L 01/02/19 06:19 Hgb 6.6 g/dL (13.5-17.5) L* 01/02/19 06:19 Hct 20.7 % (40.0-50.0) L* 01/02/19 06:19 MCV 84.8 fL (80-95) 01/02/19 06:19 MCH 27.0 pg (27.0-33.0) 01/02/19 06:19 MCHC 31.9 g/dL (32.0-36.0) L 01/02/19 06:19 RDW 17.0 % (11.8-14.1) H 01/02/19 06:19 Plt Count 86 x1000/uL (130-400) L 01/02/19 06:19 MPV 12.0 fL (8.0-11.0) H 01/02/19 06:19 Immature Gran % 0.2 01/02/19 06:19 Neutrophils % 60.1 01/02/19 06:19 Lymphocytes % 27.3 01/02/19 06:19 Monocytes % 8.9 01/02/19 06:19 Eosinophils % 3.3 01/02/19 06:19 Basophils % 0.2 01/02/19 06:19 Absolute Neutrophils 3.70 k/cumm (1.2-6.7) 01/02/19 06:19 Absolute Lymphocytes 1.68 k/cumm (1.2-3.4) 01/02/19 06:19 Absolute Monocytes 0.55 k/cumm (0.11-0.7) 01/02/19 06:19 Absolute Eosinophils 0.20 k/cumm (0.0-0.7) 01/02/19 06:19 Absolute Basophils 0.01 k/cumm (0.0-0.2) 01/02/19 06:19 Differential Comment Rbc morph reviewed 01/02/19 06:19 RBC Morphology See below 01/02/19 06:19 Hypochromasia 1+ 01/02/19 06:19 Poikilocytosis 1+ 01/02/19 06:19 Anisocytosis 2+ 01/02/19 06:19 Sodium 143 mmol/L (136-145) 01/02/19 06:19 Potassium 3.6 mmol/L (3.5-5.1) 01/02/19 06:19 Chloride 109 mmol/L (98-107) H 01/02/19 06:19 Carbon Dioxide 26.3 mmol/L (21.0-32.0) 01/02/19 06:19 Anion Gap 7.7 mmol/L (3-11) 01/02/19 06:19 BUN 18 mg/dL (7-18) D 01/02/19 06:19 Creatinine 0.97 mg/dL (0.70-1.30) 01/02/19 06:19 Estimated GFR/1.73 m2 >= 60.00 (mL/min/1.73m2) 01/02/19 06:19 Glucose 86 mg/dL (70-100) D 01/02/19 06:19 Lactate 1.1 mmol/L (0.6-1.4) 01/01/19 08:12 Calcium 7.5 mg/dL (8.5-10.1) L 01/02/19 06:19 Magnesium 1.8 mg/dL (1.8-2.4) 01/02/19 06:19 Troponin I < 0.05 ng/mL (0.00-0.06) 01/01/19 06:20 C-Reactive Protein 1.08 mg/dL (0.0-0.3) H 01/01/19 06:20 Procalcitonin 0.2 ng/mL 01/01/19 06:20 Vancomycin Trough 20.8 ug/mL (10.0-20.0) H* 01/02/19 10:50 Patient ABO/Rh A Positive 01/01/19 06:20 Antibody Screen Negative 01/01/19 06:20 Crossmatch See Detail 01/01/19 06:20
--- NOTE | 2019-01-02 16:49 | CMPROGNOTE_ITS ---
Care Management Progress Note S/O: Parviz remains in the ICU at this time as he required additional blood transfusions today. He continues to be closely monitored and treated. CM continues to follow. A: 73 year old male admitted to [facility] 12/31/18 for Urinary Retention P: Parviz will discharge home with resumption of VNA and CFC services. He will follow up with his PCP and plan of care as prescribed. Anticipate he will follow up with Dr. Sullivan and transport home with a friend as his does not drive.
[2019-01-02 17:48] LABS: HCT 27.5 % (40.0-50.0); HGB 8.8 g/dL (13.5-17.5)
[2019-01-02] MEDS: Normal Saline 1,000 ML 100 ML IV (18:33)
[2019-01-02] MEDS: Normal Saline Flush 10 ML SYR IV ×2 (18:37→19:54)
[2019-01-03] VITALS (14 sets, daily range): BP systolic 135–163; BP diastolic 48–73; PULSE 60–83; RESP 12–20; TEMP 36.2–36.6; O2SAT 96
[2019-01-03] MEDS: PIPERACILLIN/TAZO 3.375 GM in Normal Saline 50 ML IVPB ×2 (00:35→04:55)
[2019-01-03] MEDS: Normal Saline Flush 10 ML SYR IV ×2 (00:47→13:24)
[2019-01-03] MEDS: Ketorolac 15 MG/ML VIAL IVP (00:47)
[2019-01-03] MEDS: oxyCODONE 15 MG TAB PO ×4 (04:57→20:04)
[2019-01-03] MEDS: Normal Saline 1,000 ML 100 ML IV (05:44)
[2019-01-03 07:34] LABS: Absolute Basophil Count 0.02 k/cumm (0.0-0.2); Absolute Eosinophil Count 0.23 k/cumm (0.0-0.7); Absolute Lymphocyte Count 1.66 k/cumm (1.2-3.4); Absolute Monocyte Count 0.39 k/cumm (0.11-0.7); Absolute Neutrophil Count 1.62 k/cumm (1.2-6.7); Basophils % 0.5; Eosinophils % 5.9; HCT 27.5 % (40.0-50.0); HGB 8.6 g/dL (13.5-17.5); Lymphocytes % 42.3; Mean Corp. HGB Concentration 31.3 g/dL (32.0-36.0); Mean Corpuscular Hemoglobin 26.9 pg (27.0-33.0); Mean Corpuscular Volume 85.9 fL (80-95); Mean Platelet Volume 12.2 fL (8.0-11.0); Monocytes % 9.9; Neutrophils % 41.4; RBC Distribution Width 16.4 % (11.8-14.1); White Blood Cell Count 3.92 k/cumm (4.4-10.8)
[2019-01-03 07:48] LABS: Anion Gap 5.4 mmol/L (3-11); BUN 12 mg/dL (7-18); CO2 28.6 mmol/L (21.0-32.0); CREATININE 0.98 mg/dL (0.70-1.30); Calcium 7.9 mg/dL (8.5-10.1); Chloride 109 mmol/L (98-107); Glucose 137 mg/dL (70-100); Magnesium 1.7 mg/dL (1.8-2.4); Potassium 4.2 mmol/L (3.5-5.1); Sodium 143 mmol/L (136-145)
[2019-01-03 08:20] LABS: Diff Comment RBC Morph Reviewed; Platelet Count 93 x1000/uL (130-400)
[2019-01-03 08:21] LABS: Anisocytosis 2+; Poikilocytes 2+; Polychromasia Present
--- NOTE | 2019-01-03 08:35 | PGE_ITS ---
Date of Service Date of service: 01/03/19 Time of Service: 17:35 Assessment and Plan Assessment and plan (1) Hypotension: Status: Resolved Assessment and plan: Likely due to symptomatic anemia of acute blood loss of hematuria. S/p transfusion of a total of 4 units of pRBC's. No evidence of fever/infection off abx. Continue to monitor H/H. (2) Crohn's colitis: Status: Chronic Assessment and plan: On immunosuppression with remicaid. No evidence of a current flare or bleeding. 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 Patient's admission medication reconcilliation had incorrect doses of insulin - it would be a good idea to go over the prior to admission medication list prior to discharge. No changes are expected to be made to the outpatient regimen. (4) Hematuria: Status: Resolved Assessment and plan: As above. Defer to primary Hospitalists are signing off. Please, reconsult if needed. Subjective Subjective Interval history since last seen: H/H 8.6/27.5 - stable. No clots in urine, dark janki. Not on CBI. BP 130-160's. Denies dizziness, chest pain, shortness of sharon th, nausea, vomiting. Exam Narrative Exam Narrative: General: Very pleasant elderly male, A&Ox3, sitting in a chair in a great mood HEENT: EOMI, MMM Cardiovascular: RRR, no m/r/g Lungs: CTAB Gastrointestinal: abdomen is soft, nontender, nondistended Genitourinary: pink urine in catheter Extremities: no e/c/c BLE's Objective Objective Clinical Data: Abnormal lab results 01/01/19 01/02/19 01/02/19 Range/Units 06:20 10:50 17:27 WBC (4.4-10.8) k/cumm RBC (4.50-6.00) m/cumm Hgb 8.8 L D (13.5-17.5) g/dL Hct 27.5 L D (40.0-50.0) % MCH (27.0-33.0) pg MCHC (32.0-36.0) g/dL RDW (11.8-14.1) % Plt Count (130-400) x1000/uL MPV (8.0-11.0) fL Chloride (98-107) mmol/L Glucose (70-100) mg/dL Calcium (8.5-10.1) mg/dL Magnesium (1.8-2.4) mg/dL Vancomycin Trough 20.8 H* (10.0-20.0) ug/mL Crossmatch See Detail 01/03/19 01/03/19 Range/Units 06:30 06:30 WBC 3.92 L D (4.4-10.8) k/cumm RBC 3.20 L (4.50-6.00) m/cumm Hgb 8.6 L (13.5-17.5) g/dL Hct 27.5 L (40.0-50.0) % MCH 26.9 L (27.0-33.0) pg MCHC 31.3 L (32.0-36.0) g/dL RDW 16.4 H (11.8-14.1) % Plt Count 93 L (130-400) x1000/uL MPV 12.2 H (8.0-11.0) fL Chloride 109 H (98-107) mmol/L Glucose 137 H (70-100) mg/dL Calcium 7.9 L (8.5-10.1) mg/dL Magnesium 1.7 L (1.8-2.4) mg/dL Vancomycin Trough (10.0-20.0) ug/mL Crossmatch Vital Signs Temperature 36.8 C 01/02/19 23:30 Temperature Source Tympanic 01/02/19 23:30 Pulse 66 01/03/19 04:01 Pulse Rhythm Regular 01/02/19 23:38 Pulse 67 01/03/19 04:01 Respiratory Rate 20 01/03/19 04:01 Respiratory Effort 01/02/19 23:38 Respiratory Depth Normal 01/02/19 23:38 Respiratory Pattern Normal 01/02/19 23:38 Blood Pressure 151/69 H 01/03/19 04:01 Blood Pressure Mean 87 01/03/19 04:01 Blood Pressure Position Supine 01/01/19 11:37 Pulse Oximetry 95 01/02/19 23:30 Respiratory End-tidal CO2 45 12/31/18 12:30 Oxygen Delivery Method Room Air 01/02/19 22:15 Oxygen Flow Rate 0 01/02/19 22:15 Pain Level 8 01/02/19 23:30 Comment 01/02/19 23:30 Intake & Output 01/02/19 01/02/19 01/03/19 11:59 23:59 11:59 Intake Total 786.667 / 2581.667 1795.000 / 2581.667 845 / 845 Output Total 1000 / 2250 1250 / 2250 800 / 800 Balance -213.333 / 331.667 545.000 / 331.667 45 / 45 Weight 105.8 kg 115 kg Intake: IV 786.667 / 1341.667 555.000 / 1341.667 845 / 845 Oral 640 / 640 Blood Product 600 / 600 Rbc Leuko Reduced Unit 300 / 300 [id number] Rbc Leuko Reduced Unit 300 / 300 [id number] Output: Urine 1000 / 2250 1250 / 2250 800 / 800 Other: Urine Color Brown Dark Janki Dark Janki Urine Appearance Clear Clear Cloudy Clots Comment Dr. Sullivan in and hand irrigated the urethral catheter. he then removed that catheter and irrigated the SP catheter. Lg amt of clots were removed from the urethral catheter, none from the SP cath. No irrigation at this time. No clots noted. Stool Occult Blood Negative Stool Size Large Small Stool Characteristics Soft Soft Formed Formed Brown Laboratory Results WBC 3.92 k/cumm (4.4-10.8) L D 01/03/19 06:30 RBC 3.20 m/cumm (4.50-6.00) L 01/03/19 06:30 Hgb 8.6 g/dL (13.5-17.5) L 01/03/19 06:30 Hct 27.5 % (40.0-50.0) L 01/03/19 06:30 MCV 85.9 fL (80-95) 01/03/19 06:30 MCH 26.9 pg (27.0-33.0) L 01/03/19 06:30 MCHC 31.3 g/dL (32.0-36.0) L 01/03/19 06:30 RDW 16.4 % (11.8-14.1) H 01/03/19 06:30 Plt Count 93 x1000/uL (130-400) L 01/03/19 06:30 MPV 12.2 fL (8.0-11.0) H 01/03/19 06:30 Immature Gran % 0.0 01/03/19 06:30 Neutrophils % 41.4 01/03/19 06:30 Lymphocytes % 42.3 01/03/19 06:30 Monocytes % 9.9 01/03/19 06:30 Eosinophils % 5.9 01/03/19 06:30 Basophils % 0.5 01/03/19 06:30 Absolute Neutrophils 1.62 k/cumm (1.2-6.7) 01/03/19 06:30 Absolute Lymphocytes 1.66 k/cumm (1.2-3.4) 01/03/19 06:30 Absolute Monocytes 0.39 k/cumm (0.11-0.7) 01/03/19 06:30 Absolute Eosinophils 0.23 k/cumm (0.0-0.7) 01/03/19 06:30 Absolute Basophils 0.02 k/cumm (0.0-0.2) 01/03/19 06:30 Differential Comment Rbc morph reviewed 01/03/19 06:30 RBC Morphology See below 01/03/19 06:30 Polychromasia Present 01/03/19 06:30 Hypochromasia 1+ 01/02/19 06:19 Poikilocytosis 2+ 01/03/19 06:30 Anisocytosis 2+ 01/03/19 06:30 Sodium 143 mmol/L (136-145) 01/03/19 06:30 Potassium 4.2 mmol/L (3.5-5.1) 01/03/19 06:30 Chloride 109 mmol/L (98-107) H 01/03/19 06:30 Carbon Dioxide 28.6 mmol/L (21.0-32.0) 01/03/19 06:30 Anion Gap 5.4 mmol/L (3-11) 01/03/19 06:30 BUN 12 mg/dL (7-18) D 01/03/19 06:30 Creatinine 0.98 mg/dL (0.70-1.30) 01/03/19 06:30 Estimated GFR/1.73 m2 >= 60.00 (mL/min/1.73m2) 01/03/19 06:30 Glucose 137 mg/dL (70-100) H 01/03/19 06:30 Lactate 1.1 mmol/L (0.6-1.4) 01/01/19 08:12 Calcium 7.9 mg/dL (8.5-10.1) L 01/03/19 06:30 Magnesium 1.7 mg/dL (1.8-2.4) L 01/03/19 06:30 Troponin I < 0.05 ng/mL (0.00-0.06) 01/01/19 06:20 C-Reactive Protein 1.08 mg/dL (0.0-0.3) H 01/01/19 06:20 Procalcitonin 0.2 ng/mL 01/01/19 06:20 Vancomycin Trough 20.8 ug/mL (10.0-20.0) H* 01/02/19 10:50 Patient ABO/Rh A Positive 01/01/19 06:20 Antibody Screen Negative 01/01/19 06:20 Crossmatch See Detail 01/01/19 06:20
[2019-01-03] MEDS: Pregabalin 100 MG CAP PO ×3 (08:49→20:03)
[2019-01-03] MEDS: DULoxetine 30 MG CAP 60 MG PO (08:49)
[2019-01-03] MEDS: Atorvastatin 40 MG TAB 80 MG PO (08:49)
[2019-01-03] MEDS: Ferrous Gluconate 324 MG TAB PO ×2 (08:50→20:04)
[2019-01-03] MEDS: Omeprazole 20 MG CAPCR PO (08:50)
[2019-01-03] MEDS: Metoprolol CR 50 MG TABCR PO (08:50)
[2019-01-03] MEDS: Multivitamin TAB 1 TAB PO (08:50)
[2019-01-03] MEDS: Acetaminophen 325 MG TAB 650 MG PO (09:03)
--- NOTE | 2019-01-03 09:27 | W.PM.PROGNOT ---
Date of Service Date of service: 01/03/19 Time of Service: : Assessment and Plan Assessment and plan (1) Acute blood loss anemia: Status: Acute Assessment and plan: I was concerned that the patient was developing sepsis post-op, but all signals now point to this entire episode being related to acute blood loss anemia. His Hgb has stabilized and his broad spectrum antibiotics have been discontinued. His blood cultures are negative. I will stop his IV fluids (as he is tolerating PO and get the patient up and moving). As long as he does well and tomorrow's labs remain stable, we can think about discharging him with his SP tube in plasce. We would then see him within a week to recheck his Hgb and begin clamping his SP tube to give him a voiding trial. Ideally, he will be able to void enough to do without an indwelling catheter. (2) Urinary retention: Status: Acute Subjective Subjective Interval history since last seen: He is asking to get up and moving this morning. He has no lightheadedness or dizziness. He denies fevers and chills. Exam Narrative Exam Narrative: He does not appear septic or toxic. His VS are documented elsewhere - his hypotension and tachycardia have resolved. His urine (from the SP tube) is light pink without clots His Hgb has responded to the 2 units PRBC yesterday and has remained stable this morning. Objective Objective Clinical Data: Abnormal lab results 01/01/19 01/02/19 01/02/19 Range/Units 06:20 10:50 17:27 WBC (4.4-10.8) k/cumm RBC (4.50-6.00) m/cumm Hgb 8.8 L D (13.5-17.5) g/dL Hct 27.5 L D (40.0-50.0) % MCH (27.0-33.0) pg MCHC (32.0-36.0) g/dL RDW (11.8-14.1) % Plt Count (130-400) x1000/uL MPV (8.0-11.0) fL Chloride (98-107) mmol/L Glucose (70-100) mg/dL Calcium (8.5-10.1) mg/dL Magnesium (1.8-2.4) mg/dL Vancomycin Trough 20.8 H* (10.0-20.0) ug/mL Crossmatch See Detail 01/03/19 01/03/19 Range/Units 06:30 06:30 WBC 3.92 L D (4.4-10.8) k/cumm RBC 3.20 L (4.50-6.00) m/cumm Hgb 8.6 L (13.5-17.5) g/dL Hct 27.5 L (40.0-50.0) % MCH 26.9 L (27.0-33.0) pg MCHC 31.3 L (32.0-36.0) g/dL RDW 16.4 H (11.8-14.1) % Plt Count 93 L (130-400) x1000/uL MPV 12.2 H (8.0-11.0) fL Chloride 109 H (98-107) mmol/L Glucose 137 H (70-100) mg/dL Calcium 7.9 L (8.5-10.1) mg/dL Magnesium 1.7 L (1.8-2.4) mg/dL Vancomycin Trough (10.0-20.0) ug/mL Crossmatch Vital Signs Temperature 36.8 C 01/02/19 23:30 Temperature Source Tympanic 01/02/19 23:30 Pulse 67 01/03/19 07:59 Pulse Rhythm Regular 01/02/19 23:38 Pulse 68 01/03/19 07:59 Respiratory Rate 12 01/03/19 07:59 Respiratory Effort 01/02/19 23:38 Respiratory Depth Normal 01/02/19 23:38 Respiratory Pattern Normal 01/02/19 23:38 Blood Pressure 153/67 H 01/03/19 07:59 Blood Pressure Mean 88 01/03/19 07:59 Blood Pressure Position Supine 01/01/19 11:37 Pulse Oximetry 95 01/02/19 23:30 Respiratory End-tidal CO2 45 12/31/18 12:30 Oxygen Delivery Method Room Air 01/02/19 22:15 Oxygen Flow Rate 0 01/02/19 22:15 Pain Level 9 01/03/19 09:03 Comment 01/02/19 23:30 Intake & Output 01/02/19 01/02/19 01/03/19 11:59 23:59 11:59 Intake Total 786.667 / 2581.667 1795.000 / 2581.667 845 / 845 Output Total 1000 / 2250 1250 / 2250 800 / 800 Balance -213.333 / 331.667 545.000 / 331.667 45 / 45 Weight 105.8 kg 115 kg Intake: IV 786.667 / 1341.667 555.000 / 1341.667 845 / 845 Oral 640 / 640 Blood Product 600 / 600 Rbc Leuko Reduced Unit 300 / 300 [id number] Rbc Leuko Reduced Unit 300 / 300 [id number] Output: Urine 1000 / 2250 1250 / 2250 800 / 800 Other: Urine Color Brown Dark Veronica Dark Veronica Urine Appearance Clear Clear Cloudy Clots Comment Dr. Sullivan in and hand irrigated the urethral catheter. he then removed that catheter and irrigated the SP catheter. Lg amt of clots were removed from the urethral catheter, none from the SP cath. No irrigation at this time. No clots noted. Stool Occult Blood Negative Stool Size Large Small Stool Characteristics Soft Soft Formed Formed Brown Laboratory Results WBC 3.92 k/cumm (4.4-10.8) L D 01/03/19 06:30 RBC 3.20 m/cumm (4.50-6.00) L 01/03/19 06:30 Hgb 8.6 g/dL (13.5-17.5) L 01/03/19 06:30 Hct 27.5 % (40.0-50.0) L 01/03/19 06:30 MCV 85.9 fL (80-95) 01/03/19 06:30 MCH 26.9 pg (27.0-33.0) L 01/03/19 06:30 MCHC 31.3 g/dL (32.0-36.0) L 01/03/19 06:30 RDW 16.4 % (11.8-14.1) H 01/03/19 06:30 Plt Count 93 x1000/uL (130-400) L 01/03/19 06:30 MPV 12.2 fL (8.0-11.0) H 01/03/19 06:30 Immature Gran % 0.0 01/03/19 06:30 Neutrophils % 41.4 01/03/19 06:30 Lymphocytes % 42.3 01/03/19 06:30 Monocytes % 9.9 01/03/19 06:30 Eosinophils % 5.9 01/03/19 06:30 Basophils % 0.5 01/03/19 06:30 Absolute Neutrophils 1.62 k/cumm (1.2-6.7) 01/03/19 06:30 Absolute Lymphocytes 1.66 k/cumm (1.2-3.4) 01/03/19 06:30 Absolute Monocytes 0.39 k/cumm (0.11-0.7) 01/03/19 06:30 Absolute Eosinophils 0.23 k/cumm (0.0-0.7) 01/03/19 06:30 Absolute Basophils 0.02 k/cumm (0.0-0.2) 01/03/19 06:30 Differential Comment Rbc morph reviewed 01/03/19 06:30 RBC Morphology See below 01/03/19 06:30 Polychromasia Present 01/03/19 06:30 Hypochromasia 1+ 01/02/19 06:19 Poikilocytosis 2+ 01/03/19 06:30 Anisocytosis 2+ 01/03/19 06:30 Sodium 143 mmol/L (136-145) 01/03/19 06:30 Potassium 4.2 mmol/L (3.5-5.1) 01/03/19 06:30 Chloride 109 mmol/L (98-107) H 01/03/19 06:30 Carbon Dioxide 28.6 mmol/L (21.0-32.0) 01/03/19 06:30 Anion Gap 5.4 mmol/L (3-11) 01/03/19 06:30 BUN 12 mg/dL (7-18) D 01/03/19 06:30 Creatinine 0.98 mg/dL (0.70-1.30) 01/03/19 06:30 Estimated GFR/1.73 m2 >= 60.00 (mL/min/1.73m2) 01/03/19 06:30 Glucose 137 mg/dL (70-100) H 01/03/19 06:30 Lactate 1.1 mmol/L (0.6-1.4) 01/01/19 08:12 Calcium 7.9 mg/dL (8.5-10.1) L 01/03/19 06:30 Magnesium 1.7 mg/dL (1.8-2.4) L 01/03/19 06:30 Troponin I < 0.05 ng/mL (0.00-0.06) 01/01/19 06:20 C-Reactive Protein 1.08 mg/dL (0.0-0.3) H 01/01/19 06:20 Procalcitonin 0.2 ng/mL 01/01/19 06:20 Vancomycin Trough 20.8 ug/mL (10.0-20.0) H* 01/02/19 10:50 Patient ABO/Rh A Positive 01/01/19 06:20 Antibody Screen Negative 01/01/19 06:20 Crossmatch See Detail 01/01/19 06:20
[2019-01-03] MEDS: MAGNESIUM SULFATE 2 GM/50 ML BAG IVPB (10:10)
[2019-01-03] MEDS: Insulin Aspart 300 UNITS/3 ML PEN SC ×2 (12:15→17:31)
--- NOTE | 2019-01-03 13:26 | CMPROGNOTE_ITS ---
Care Management Progress Note S/O: Parviz trasnferred to [facility] today, his IVF has been discontinued and per MD his H&H has stabilized. Anticipate with continued stability, Parviz will return home tomorrow with a resumption of home health services. JOSE CARLOS notified [facility] RN of need for resumption order in DC summary. CM continues to follow. A: 73 year old male admitted to [facility] 12/31/18 for Urinary Retention P: Parviz will discharge home with resumption of VNA and CFC services. He will follow up with his PCP and plan of care as prescribed. Anticipate he will follow up with Dr. Sullivan and transport home with a friend as his does not drive.
[2019-01-04] MEDS: oxyCODONE 15 MG TAB PO ×2 (03:14→07:56)
[2019-01-04 03:20] VITALS: BP 178/86; PULSE 69; RESP 17; TEMP 36.4; O2SAT 94
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
[2019-01-04 07:00] VITALS: PULSE 75
--- NOTE | 2019-01-04 07:13 | W.PM.PROGNOT ---
Date of Service Date of service: 01/04/19 Time of Service: 07:13 Assessment and Plan Assessment and plan (1) Urinary retention: Status: Acute Assessment and plan: I reviewed the patient's surgical pathology with him. He had no signs of prostate malignancy. There was acute and chronic inflammation in the prostate and urethral tissue as we often see with chronic catheterizations. He should be safe for discharge with his suprapubic tube draining to a bag. He has home health services already, so we will have the home health nurses begin clamping his suprapubic tube to see if he is able to void. I will send him home on a low dose of an antibiotic (since he still has his indwelling catheter). We can contact the patient when his final urine culture is available and we can change his antibiotic if necessary. (2) Acute blood loss anemia: Status: Acute Assessment and plan: His postop hypotension and tachycardia all seems related to acute blood loss anemia. He received a total of 4 units of packed red blood cells and all of his symptoms have stabilized. Many thanks go to Dr Xiong and the hospitalist team for navigating the patient through this issue. Subjective Subjective Interval history since last seen: The patient has been tolerating p.o. intake. He is no longer dizzy or lightheaded. He is ambulatory with no difficulty. Exam Narrative Exam Narrative: His suprapubic tube is draining clear urine His vital signs are stable. Objective Objective Clinical Data: Abnormal lab results 01/03/19 01/03/19 Range/Units 06:30 06:30 WBC 3.92 L D (4.4-10.8) k/cumm RBC 3.20 L (4.50-6.00) m/cumm Hgb 8.6 L (13.5-17.5) g/dL Hct 27.5 L (40.0-50.0) % MCH 26.9 L (27.0-33.0) pg MCHC 31.3 L (32.0-36.0) g/dL RDW 16.4 H (11.8-14.1) % Plt Count 93 L (130-400) x1000/uL MPV 12.2 H (8.0-11.0) fL Chloride 109 H (98-107) mmol/L Glucose 137 H (70-100) mg/dL Calcium 7.9 L (8.5-10.1) mg/dL Magnesium 1.7 L (1.8-2.4) mg/dL Vital Signs Temperature 36.4 C L 01/04/19 03:20 Temperature Source Tympanic 01/04/19 03:20 Pulse 69 01/04/19 03:20 Pulse Rhythm Regular 01/04/19 03:05 Pulse 83 01/03/19 10:35 Respiratory Rate 17 01/04/19 03:20 Respiratory Effort 01/04/19 03:05 Respiratory Depth Normal 01/04/19 03:05 Respiratory Pattern Normal 01/04/19 03:05 Blood Pressure 178/86 H 01/04/19 03:20 Blood Pressure Mean 88 01/03/19 10:35 Blood Pressure Position Supine 01/03/19 07:30 Pulse Oximetry 94 L 01/04/19 03:20 Respiratory End-tidal CO2 45 12/31/18 12:30 Oxygen Delivery Method Room Air 01/04/19 03:20 Oxygen Flow Rate 0 01/04/19 03:20 Pain Level 9 01/04/19 03:20 Comment 01/02/19 23:30 Intake & Output 01/03/19 01/03/19 01/04/19 11:59 23:59 11:59 Intake Total 1085 / 2325 1240 / 2325 Output Total 800 / 1875 1075 / 1875 2150 / 2150 Balance 285 / 450 165 / 450 -2150 / -2150 Weight 115 kg 113 kg Intake: IV 845 / 1845 1000 / 1845 Oral 240 / 480 240 / 480 Output: Urine 800 / 1875 1075 / 1875 2150 / 2150 Other: Urine Color Dark Janki Dark Red Dark Red Urine Appearance Cloudy Clear Clear Comment Supra pubic line intact and draing dark janki urine--no clots noted. urine was more of a tea colored, no clots noted Tea colored Laboratory Results WBC 3.92 k/cumm (4.4-10.8) L D 01/03/19 06:30 RBC 3.20 m/cumm (4.50-6.00) L 01/03/19 06:30 Hgb 8.6 g/dL (13.5-17.5) L 01/03/19 06:30 Hct 27.5 % (40.0-50.0) L 01/03/19 06:30 MCV 85.9 fL (80-95) 01/03/19 06:30 MCH 26.9 pg (27.0-33.0) L 01/03/19 06:30 MCHC 31.3 g/dL (32.0-36.0) L 01/03/19 06:30 RDW 16.4 % (11.8-14.1) H 01/03/19 06:30 Plt Count 93 x1000/uL (130-400) L 01/03/19 06:30 MPV 12.2 fL (8.0-11.0) H 01/03/19 06:30 Immature Gran % 0.0 01/03/19 06:30 Neutrophils % 41.4 01/03/19 06:30 Lymphocytes % 42.3 01/03/19 06:30 Monocytes % 9.9 01/03/19 06:30 Eosinophils % 5.9 01/03/19 06:30 Basophils % 0.5 01/03/19 06:30 Absolute Neutrophils 1.62 k/cumm (1.2-6.7) 01/03/19 06:30 Absolute Lymphocytes 1.66 k/cumm (1.2-3.4) 01/03/19 06:30 Absolute Monocytes 0.39 k/cumm (0.11-0.7) 01/03/19 06:30 Absolute Eosinophils 0.23 k/cumm (0.0-0.7) 01/03/19 06:30 Absolute Basophils 0.02 k/cumm (0.0-0.2) 01/03/19 06:30 Differential Comment Rbc morph reviewed 01/03/19 06:30 RBC Morphology See below 01/03/19 06:30 Polychromasia Present 01/03/19 06:30 Hypochromasia 1+ 01/02/19 06:19 Poikilocytosis 2+ 01/03/19 06:30 Anisocytosis 2+ 01/03/19 06:30 Sodium 143 mmol/L (136-145) 01/03/19 06:30 Potassium 4.2 mmol/L (3.5-5.1) 01/03/19 06:30 Chloride 109 mmol/L (98-107) H 01/03/19 06:30 Carbon Dioxide 28.6 mmol/L (21.0-32.0) 01/03/19 06:30 Anion Gap 5.4 mmol/L (3-11) 01/03/19 06:30 BUN 12 mg/dL (7-18) D 01/03/19 06:30 Creatinine 0.98 mg/dL (0.70-1.30) 01/03/19 06:30 Estimated GFR/1.73 m2 >= 60.00 (mL/min/1.73m2) 01/03/19 06:30 Glucose 137 mg/dL (70-100) H 01/03/19 06:30 Lactate 1.1 mmol/L (0.6-1.4) 01/01/19 08:12 Calcium 7.9 mg/dL (8.5-10.1) L 01/03/19 06:30 Magnesium 1.7 mg/dL (1.8-2.4) L 01/03/19 06:30 Troponin I < 0.05 ng/mL (0.00-0.06) 01/01/19 06:20 C-Reactive Protein 1.08 mg/dL (0.0-0.3) H 01/01/19 06:20 Procalcitonin 0.2 ng/mL 01/01/19 06:20 Vancomycin Trough 20.8 ug/mL (10.0-20.0) H* 01/02/19 10:50 Patient ABO/Rh A Positive 01/01/19 06:20 Antibody Screen Negative 01/01/19 06:20 Crossmatch See Detail 01/01/19 06:20
[2019-01-04] MEDS: Pregabalin 100 MG CAP PO (07:53)
[2019-01-04] MEDS: Acetaminophen 325 MG TAB 650 MG PO (07:53)
[2019-01-04] MEDS: DULoxetine 30 MG CAP 60 MG PO (07:54)
[2019-01-04] MEDS: Metoprolol CR 50 MG TABCR PO (07:54)
[2019-01-04] MEDS: Ferrous Gluconate 324 MG TAB PO (07:54)
[2019-01-04] MEDS: Omeprazole 20 MG CAPCR PO (07:54)
[2019-01-04 07:55] VITALS: BP 156/67; PULSE 69; RESP 18; TEMP 36.7; O2SAT 95
[2019-01-04] MEDS: Multivitamin TAB 1 TAB PO (07:55)
[2019-01-04] MEDS: Insulin Glargine 300 UNITS/3 ML PEN 30 UNITS SC (07:57)
[2019-01-04] MEDS: Insulin Aspart 300 UNITS/3 ML PEN SC (07:57)
[2019-01-04 08:22] LABS: HCT 30.1 % (40.0-50.0); HGB 9.4 g/dL (13.5-17.5); Mean Corp. HGB Concentration 31.2 g/dL (32.0-36.0); Mean Corpuscular Hemoglobin 27.1 pg (27.0-33.0); Mean Corpuscular Volume 86.7 fL (80-95); Platelet Count 117 x1000/uL (130-400); RBC 3.47 m/cumm (4.50-6.00); RBC Distribution Width 16.6 % (11.8-14.1); White Blood Cell Count 5.15 k/cumm (4.4-10.8)
[2019-01-04 08:28] LABS: Anion Gap 4.8 mmol/L (3-11); BUN 12 mg/dL (7-18); CO2 30.2 mmol/L (21.0-32.0); CREATININE 0.93 mg/dL (0.70-1.30); Calcium 8.6 mg/dL (8.5-10.1); Chloride 106 mmol/L (98-107); Glucose 191 mg/dL (70-100); Magnesium 1.7 mg/dL (1.8-2.4); Sodium 141 mmol/L (136-145)
[2019-01-04 14:10] VITALS: PULSE 67
--- NOTE | 2019-01-04 17:44 | CMDISCH_ITS ---
LACE Index Scoring Tool - Questions: Length of Stay (in days): 4 - 6 Acuity (Admit via E.D.?): Yes Comorbidities: Diabetes w/o Complication E.D. Visits: 3 - Answers: Total Score: 11 Risk of Readmission: High Risk Care Management Discharge Reason for Hospitalization: Urinary Retention Discharge Plan: Parviz will discharge home with resumption of VNA and [facility] services. He will follow up with his PCP and plan of care as prescribed. Anticipate he will follow up with Dr. Sullivan and transport home via RCT coordinated by this engineering technical writer. Patient/Family Education Needs: Review discharge instructions, discuss Ask Me Three. Services Needed at Discharge: Home Health Care Services (Resumption of [facility]FC/VNA)
== END 2019-01-04 13:41 | disposition home or self-care (01) | DRG 713 ==
LOC: PDS 10:40 → MS 12:26 → ICU 01-01 14:50 → MS 01-03 12:58
PROVIDERS: Internal Medicine; Admitting Provider Urology; PCP Family Medicine; Visit Provider Urology
PROC: 0VT08ZZ Resection of Prostate, Via Natural or Artificial Opening Endoscopic (ICD-10-PCS; CPT 52601; principal; 2018-12-31 08:30)
PROC: 0VT08ZZ Resection of Prostate, Via Natural or Artificial Opening Endoscopic (ICD-10-PCS; CPT 51102; 2018-12-31 08:30)
DX: N40.1 Benign prostatic hyperplasia with lower urinary tract symptoms (principal); D62 Acute posthemorrhagic anemia; K50.90 Crohn's disease, unspecified, without complications; R33.8 Other retention of urine; N34.2 Other urethritis; N36.8 Other specified disorders of urethra; R00.0 Tachycardia, unspecified; I95.9 Hypotension, unspecified; Y83.8 Other surgical procedures as the cause of abnormal reaction of the patient, or of later complication, without mention of misadventure at the time of the procedure; E11.42 Type 2 diabetes mellitus with diabetic polyneuropathy; E11.21 Type 2 diabetes mellitus with diabetic nephropathy; R31.9 Hematuria, unspecified; Z79.4 Long term (current) use of insulin; F41.9 Anxiety disorder, unspecified
CPT/HCPCS: 52601; 51102; 36415; 36430; 80048; 84145; 85027; 86850; 86900; 86901; 86920; 87040; 88305; 99232; 99254; NC; 71045; 80202; 83605; 83735; 84484; 85014; 85018; 85025; 86140; 87086; 99222; J0131; J0690; J1100; J1580; J1885; J2250; J2405; J2543; J3010; J3370; J7042; P9016

== ENCOUNTER 2019-01-05 07:55 | Emergency (ER) | payer MEDICARE, MEDICAID, SELFPAY ==
[2019-01-05 08:03] VITALS: BP 192/76; PULSE 78; RESP 16; TEMP 36.7; O2SAT 98
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
[2019-01-05 09:19] VITALS: BP 144/70; PULSE 74; RESP 18; O2SAT 95
== END 2019-01-05 09:22 | disposition home or self-care (01) ==
PROVIDERS: Emergency Provider Emergency Medicine; PCP Family Medicine
DX: T83.091A Other mechanical complication of indwelling urethral catheter, initial encounter (principal); E11.21 Type 2 diabetes mellitus with diabetic nephropathy; E11.40 Type 2 diabetes mellitus with diabetic neuropathy, unspecified; I10 Essential (primary) hypertension; Z79.4 Long term (current) use of insulin
CPT/HCPCS: 99283

== ENCOUNTER 2019-01-13 11:13 | Emergency (ER) | payer MEDICARE, MEDICAID, SELFPAY ==
[2019-01-13 11:19] VITALS: BP 175/67; PULSE 77; RESP 16; TEMP 36.5; O2SAT 96
--- NOTE | 2019-01-13 12:42 | NUR.NOTE ---
Nursing Note: Bladder catheter irrigated with 60 mL sterile water per MD Rodriguez. Pt tolerated well. 300 mL clear yellow urine immediately drained. Catheter attached to leg bag and is still actively draining clear yellow urine.
--- NOTE | 2019-01-13 13:04 | NUR.NOTE ---
Nursing Note: 500 mL additional clear yellow urine drained into leg bag. leg bag emptied.
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
[2019-01-13 13:37] LABS: Bilirubin Negative (Negative); Blood Moderate (Negative); Clarity Sl Cloudy (Clear); Glucose Negative (Negative); Ketones Negative (Negative); Leukocyte Esterase Small (Negative); Nitrite Negative (Negative); Specific Gravity 1.015 (1.005-1.025); Urobilinogen 0.2 EU/dL (Up TO 0.2); pH 5.5 (5-8)
[2019-01-13 13:46] LABS: WBC 20-50 HPF (0-5)
[2019-01-13 13:47] LABS: Bacteria Few HPF (Negative); C & S Indicated? Yes; Casts Negative LPF (Negative); Crystals Negative HPF (Negative); Epithelial Cells Negative HPF (Negative); Mucus Negative (Negative); Other Cells Few Transitional (Negative); RBC >50 (0-2)
[2019-01-13 14:12] VITALS: BP 126/57; PULSE 64; RESP 16; O2SAT 98
[2019-01-13] MEDS: Cephalexin 500 MG CAP PO (14:12)
== END 2019-01-13 14:18 | disposition home or self-care (01) ==
PROVIDERS: Emergency Provider Student in an Organized Health Care Education/Training Program; PCP Family Medicine
DX: R33.8 Other retention of urine (principal); T83.091A Other mechanical complication of indwelling urethral catheter, initial encounter; Z96.0 Presence of urogenital implants
CPT/HCPCS: 99283; 81003; 81015; 87086

== ENCOUNTER → 2019-01-17 08:14 | Outpatient (BNVA) | payer MEDICARE, MEDICAID, SELFPAY | PROVIDERS: PCP Family Medicine; Referring Provider Family Medicine; Visit Provider Urology | DX: R33.9 Retention of urine, unspecified (principal); Z96.0 Presence of urogenital implants; Z48.816 Encounter for surgical aftercare following surgery on the genitourinary system ==

== ENCOUNTER → 2019-01-31 07:51 | Outpatient (BNVA) | payer MEDICARE, MEDICAID, SELFPAY | PROVIDERS: PCP Family Medicine; Referring Provider Family Medicine; Visit Provider Urology | DX: R33.9 Retention of urine, unspecified (principal); Z46.6 Encounter for fitting and adjustment of urinary device | CPT/HCPCS: 51705; 99212 ==

== ENCOUNTER 2019-02-06 01:32 | Outpatient (RCR) | payer MEDICARE, MEDICAID, SELFPAY ==
[2019-02-06] MEDS: Acetaminophen 500 MG TAB 1000 MG PO (10:10)
[2019-02-06] MEDS: diphenhydrAMINE 25 MG CAP PO (10:10)
[2019-02-06 10:21] VITALS: BP 155/77; PULSE 80; RESP 19; TEMP 37.1; O2SAT 93
[2019-02-06 10:21] LABS: Abs Immature Grans 0.01 k/cumm (0.0-0.09); Absolute Basophil Count 0.02 k/cumm (0.0-0.2); Absolute Eosinophil Count 0.17 k/cumm (0.0-0.7); Absolute Lymphocyte Count 1.41 k/cumm (1.2-3.4); Absolute Monocyte Count 0.45 k/cumm (0.11-0.7); Absolute Neutrophil Count 2.35 k/cumm (1.2-6.7); Basophils % 0.5; Eosinophils % 3.9; HCT 38.1 % (40.0-50.0); HGB 11.9 g/dL (13.5-17.5); Immature Grans % 0.2; Mean Corp. HGB Concentration 31.2 g/dL (32.0-36.0); Mean Corpuscular Hemoglobin 27.3 pg (27.0-33.0); Mean Corpuscular Volume 87.4 fL (80-95); Mean Platelet Volume 11.2 fL (8.0-11.0); Monocytes % 10.2; Neutrophils % 53.2; Platelet Count 152 x1000/uL (130-400); RBC 4.36 m/cumm (4.50-6.00); RBC Distribution Width 15.3 % (11.8-14.1); White Blood Cell Count 4.41 k/cumm (4.4-10.8)
[2019-02-06 10:29] LABS: C-Reactive Protein 1.46 mg/dL (0.0-0.3)
[2019-02-06] MEDS: inFLIXimab 600 MG in Normal Saline 250 ML 125 MG IVPB (10:54)
[2019-02-06 10:55] VITALS: BP 151/87; PULSE 72; RESP 19; TEMP 37.1; O2SAT 97
[2019-02-06] MEDS: Normal Saline Flush 10 ML SYR IVP (10:56)
[2019-02-06 11:05] VITALS: BP 152/80; PULSE 73; RESP 18; TEMP 37; O2SAT 96
[2019-02-06 11:35] VITALS: BP 146/78; PULSE 74; RESP 17; TEMP 37.1; O2SAT 96
[2019-02-06 11:50] VITALS: BP 142/78; PULSE 74; RESP 18; TEMP 37.1; O2SAT 95
[2019-02-06 12:20] VITALS: BP 155/87; PULSE 77; RESP 19; TEMP 37; O2SAT 97
[2019-02-09 00:22] LABS: Infliximab 10 mcg/mL
== END 2019-02-07 23:59 | disposition home or self-care (01) ==
LOC: INF 01:32
PROVIDERS: PCP Family Medicine; Visit Provider Internal Medicine
DX: K50.80 Crohn's disease of both small and large intestine without complications (principal)
CPT/HCPCS: 36415; 82397; 96365; 96366; 85025; 86140; J1745

== ENCOUNTER 2019-02-18 17:00 | Outpatient (REF) | payer MEDICARE, MEDICAID, SELFPAY ==
[2019-02-18 13:52] LABS: Bilirubin Negative (Negative); Blood Trace-intact (Negative); Clarity Clear (Clear); Glucose Negative (Negative); Ketones Negative (Negative); Leukocyte Esterase Moderate (Negative); Nitrite Positive (Negative)
[2019-02-18 14:03] LABS: Bacteria Many HPF (Negative); C & S Indicated? C&S Done As Ordered; WBC >50 HPF (0-5)
== END 2019-02-18 17:20 ==
LOC: LBN 17:00
PROVIDERS: PCP Family Medicine; Visit Provider Urology
DX: R82.90 Unspecified abnormal findings in urine (principal); N39.0 Urinary tract infection, site not specified
CPT/HCPCS: 87077; 81003; 81015; 87086; 87186

== ENCOUNTER 2019-02-27 01:51 | Outpatient (CLI) | payer MEDICARE, MEDICAID, SELFPAY ==
--- NOTE | 2019-02-27 10:00 | NS.NUTBLAN_ITS ---
DESCRIPTION: Parviz presents today with food, blood sugars and insulin dosing documentation. Parviz eats 2-3 meals daily with one meal being meals on wheels. He doses insulin guessing based on his blood sugar. He does not count carbohydrate. Parviz eats consistent breakfast of 45 grams carbohydrate daily and the same if he eats lunch. Supper tends to be 4-7 carbohydrate servings. He takes 0- 37units mealtime insulin. In addition, he takes insulin correction at bedtime. INTERVENTION: Parviz would like to have a better way to dose mealtime insulin Suggested insulin for carbohydrate and insulin correction based on his current insulin dosing at 1 unit covers 5 grams carbohydrate and 1 unit covers 15mg/dl above 140mg/dl. He is able to voice understanding of 3 units for each carbohydrate serving. Reviewed diabetes food guide and he is given a carbohydrate counting book as a resource. He would like to try dosing in this manner. Parviz also came for bi-weekly placement of his Freestyle Guerda with his , Sommer, learning to apply the device. She is able to go through the steps to place the sensor on Parviz's arm and with help she was able to place the tape around it to hold it in place. PLAN: Parviz will continue to document food and blood sugar and insulin dose using insulin for carbohydrate at 1 unit covers 5 grams or 3 units covers 1 carb serving. He will add insulin correction at 1 unit covers 15mg/dl above 140. He will call with questions and return in 2 weeks. Face to Face 40 minutes for nutrition and 15 minutes diabetes self management in a 55 minute visit.
== END 2019-02-27 02:11 ==
PROVIDERS: PCP Family Medicine; Visit Provider Dietitian, Registered
DX: E11.9 Type 2 diabetes mellitus without complications (principal); Z79.4 Long term (current) use of insulin; Z71.3 Dietary counseling and surveillance; R33.9 Retention of urine, unspecified; Z96.0 Presence of urogenital implants; Z87.440 Personal history of urinary (tract) infections
CPT/HCPCS: 51702; 97802; 99213

== ENCOUNTER 2019-03-13 07:50 | Outpatient (CLI) | payer MEDICARE, MEDICAID, SELFPAY ==
--- NOTE | 2019-03-13 10:58 | NS.NUTBLAN_ITS ---
DESCRIPTION: Parviz presents for follow up for Medical Nutrition THerapy for diabetes focused on carbohydrate identification in addition to getting his Freestyle Guerda replaced. He has not written food, blood sugar and insulin because he wasn't sure how to count carbohydrate after the last session. Review of his CGM identifies a blood sugar trend of correction over night going to bed high and frequently being low and a few times hypoglycemic by morning. INTERVENTION: Reviewed carbohydrate counting with Parviz and answered his questions and he now voices understanding. He knows to take 9 units for food for his usual breakfast. He will practice with his other meals. Sommer, his , is able to place the Freestyle Guerda on Parviz with step by step coaching. PLAN: Count carbohydrate at each meal to determine mealtime insulin dose Return in 2 weeks for CGM replacement practice for Sommer Call with questions. Billed 1 MNT for 17 minutes MNT out of a 25 minute visit. No group DSME available at this time.
== END 2019-03-13 08:10 ==
PROVIDERS: PCP Family Medicine; Visit Provider Dietitian, Registered
DX: E11.9 Type 2 diabetes mellitus without complications (principal); Z79.4 Long term (current) use of insulin; Z71.3 Dietary counseling and surveillance
CPT/HCPCS: 97803

== ENCOUNTER → 2019-03-21 12:48 | Outpatient (BNVA) | payer MEDICARE, MEDICAID, SELFPAY | PROVIDERS: PCP Family Medicine; Referring Provider Family Medicine; Visit Provider Nurse Practitioner Gerontology | DX: R33.9 Retention of urine, unspecified (principal); Z46.6 Encounter for fitting and adjustment of urinary device | CPT/HCPCS: 51705; 99213 ==